=== PATIENT | female | born 1985 | race Caucasian/White ===

== ENCOUNTER 2023-01-19 21:39 | Emergency (ER) | payer OTHER ==
[2023-01-19] MEDS ORDERED: LIDOCAINE PATCH 5% TOP STA (22:33)
[2023-01-19] MEDS ORDERED: KETOROLAC 60 MG/2 ML VIAL IM STA (22:33)
[2023-01-19] MEDS ORDERED: predniSONE 20 MG TABLET PO STA (23:24)
[2023-01-20] MEDS ORDERED: CYCLOBENZAPRINE 10 MG TABLET PO STA
--- NOTE | 2023-01-20 00:02 | ED Physician Documentation ---
PD HPI BACK PAIN - Stated complaint Stated Complaint: RT LEG PX - Chief complaint Chief Complaint: General - History obtained from History obtained from: Patient - Additional information Additional information: Patient is a 37-year-old female with a history of low back pain presenting for evaluation of low back pain as well as right leg pain for the past 3 days. She denies a prior history of similar pains in the leg. She reports it feels like a deep ache and radiates throughout the leg. She has tried ibuprofen and acetaminophen without any significant improvement. He does have a history of re current back pain. 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 She denies any known injury or trauma. She denies a history of PE or DVT. 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 - Present Medications Home Medications: Ambulatory Orders Medication Instructions Recorded Confirmed Cyclobenzaprine [Flexeril] 10 mg PO TID PRN #15 tablet 01/20/23 Lidocaine Patch 5% [Lidoderm Patch] 1 patch TOP DAILY PRN #10 patch 01/20/23 predniSONE [Deltasone] 60 mg PO DAILY 4 Days #12 tablet 01/20/23 - Allergies Allergies/Adverse Reactions: Allergies Allergy/AdvReac Type Severity Reaction Status Date / Time hydrocodone AdvReac Respiratory Verified 01/19/23 21:57 oxycodone AdvReac Respiratory Verified 01/19/23 21:57 Sulfa (Sulfonamide AdvReac Unknown Verified 01/19/23 21:58 Antibiotics) - Social History Does the pt smoke?: No Smoking Status: Never smoker Does the pt drink ETOH?: Yes Does the pt have substance abuse?: No - POLST Patient has POLST: No PD ED PE NORMAL - General General: Alert and oriented X 3, No acute distress, Well developed/nourished - HEENT HEENT: Atraumatic - Neck Neck: Supple, no meningeal sign - Cardiac Cardiac: RRR - Respiratory Respiratory: No respiratory distress, Clear bilaterally - Abdomen Abdomen: Soft, Non tender - Back Back: Other (Mild midline low lumbar tenderness to palpation) - Derm Derm: Warm and dry - Extremities Extremities: No deformity, No tenderness to palpate, Normal ROM s pain, No edema, No calf tenderness / cord, Other (Pedal pulses intact) - Neuro Neuro: No motor deficit, No sensory deficit Results - Vitals Vitals: Vital Signs - 24 hr 01/19/23 01/20/23 21:50 00:14 Temperature 36.5 C 36.6 C Heart Rate 76 77 Respiratory 20 18 Rate Blood Pressure 147/70 H 106/79 O2 Saturation 99 100 Oxygen O2 Source Room air - Labs Labs: Laboratory Tests 01/19/23 22:38 D-Dimer 228.2 PD Medical Decision Making - ED course ED course: Patient presenting for evaluation of right leg pain. Pain appears to be atraumatic but in the setting of low back pain which has been ongoing for past few weeks.On exam she is neurovascularly intact with soft compartments to the extremity. There is no motor or abnormal sensation.No red flag signs or symptoms in regards to her low back pain.I D-dimer was obtained as patient was concerned about enlarged superficial veins. D-dimer is negative but I do not think clinically she has signs of a DVT.I suspect that her symptoms are related to radiculopathy from her low back pain. Discussed options for treatment and patient is agreeable to trial of lidocaine patches, anti-inflammatories, st eroids, And muscle relaxer. She declines any need for pain medication at this time. Patient is ambulatory. She is counseled on need for close follow-up with PCP as well as advised on concerning symptoms to return for. Departure - Departure Disposition: 01 Home, Self Care Clinical Impression: Radicular low back pain Condition: Stable Instructions: Lumbar Radiculopathy Prescriptions: predniSONE [Deltasone] 60 mg PO DAILY 4 Days #12 tablet Cyclobenzaprine [Flexeril] 10 mg PO TID PRN #15 tablet PRN Reason: Spasms Lidocaine Patch 5% [Lidoderm Patch] 1 patch TOP DAILY PRN #10 patch PRN Reason: pain Comments: You were evaluated for pain in your right leg. We checked a marker for signs of a blood clot which is negative. I feel your symptoms are likely related to a pinched nerve from your lower back. I have sent prescriptions to help with your pain to include a course of steroids, lidocaine patches and a muscle relaxer. These prescriptions were sent to [facility] in [place].I would recommend taking it easy over the weekend. I would also recommend close follow-up with your primary care doctor. If you have any worsening symptoms such as trouble controlling your bowel or bladder, new numbness, please consider return to the emergency department. Discharge Date/Time: 01/20/23 00:16
[2023-01-20 00:16] VITALS: BP 106/79
== END 2023-01-20 00:16 | disposition home or self-care (01) ==
LOC: ED 21:39
DX: M54.50 Low back pain, unspecified (principal)
CPT/HCPCS: 36415; 85379; 96372; 99283; A9270; J7512

== ENCOUNTER 2023-05-08 10:30 | Emergency (ER) | payer OTHER ==
[2023-05-08 10:44] VITALS: BP 155/80
--- NOTE | 2023-05-08 11:05 | ED Physician Documentation ---
PD HPI BACK PAIN - Stated complaint Stated Complaint: BACK PX,DISCOMFORT - Chief complaint Chief Complaint: Back Pain - History obtained from History obtained from: Patient - History of Present Illness Timing - onset: Last night Timing - details: Abrupt onset, Still present, Waxing and waning Location: Lower, Right, Left Quality: Pain, Spasm Associated symptoms: No: Fever, Weakness, Numbness, Incontinent of urine Improves with: No: Rest Worsened by: Movement Contributing factors: No: Trauma (she did not have particular injury. She just bent over and light lifting and had pain and spasms in low back. Had back surgery 6n weeks ago without problems. 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 Has had much improved back pain and leg symptoms post surgery. This is first time of worse spasms and pain since surgery. no fevers, redness, rash, focal weakness nor numbness.) Review of Systems Constitutional: denies: Fever, Chills GI: reports: Constipation. 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 - Present Medications Home Medications: Ambulatory Orders Medication Instructions Recorded Confirmed Cyclobenzaprine [Flexeril] 10 mg PO TID PRN #15 tablet 01/20/23 Lidocaine Patch 5% [Lidoderm Patch] 1 patch TOP DAILY PRN #10 patch 01/20/23 predniSONE [Deltasone] 60 mg PO DAILY 4 Days #12 tablet 01/20/23 dexAMETHasone [Decadron] 4 mg PO DAILY #7 tablet 05/08/23 - Allergies Allergies/Adverse Reactions: Allergies Allergy/AdvReac Type Severity Reaction Status Date / Time hydrocodone AdvReac Respiratory Verified 01/19/23 21:57 oxycodone AdvReac Respiratory Verified 01/19/23 21:57 Sulfa (Sulfonamide AdvReac Unknown Verified 01/19/23 21:58 Antibiotics) - Social History Does the pt smoke?: No Smoking Status: Never smoker Does the pt drink ETOH?: Yes Does the pt have substance abuse?: No - POLST Patient has POLST: No PD ED PE NORMAL - Vitals Vital signs reviewed: Yes - General General: Alert and oriented X 3, Well developed/nourished, Other (appears uncomfrtablee due to low back and with stiff/guarding ROM.) - Respiratory Respiratory: No respiratory distress, Clear bilaterally - Abdomen Abdomen: Soft, Non tender - Back Back: No CVA TTP, No spinal TTP (the surgical scar area looks good withut signs of infection at midline area. BOth sides lumbar muscles with some soft tissue tenderness. No deformity. ) - Derm Derm: Normal color, Warm and dry - Neuro Neuro: Alert and oriented X 3, No motor deficit, No sensory deficit, Other ([patellar relfexes are good. ) Results - Vitals Vitals: Vital Signs - 24 hr 05/08/23 10:40 Temperature 36.4 C L Heart Rate 70 Respiratory 15 Rate Blood Pressure 155/80 H O2 Saturation 100 Oxygen O2 Source Room air PD Medical Decision Making - ED course Complexity details: considered differential, d/w patient ED course: much far out for regular post infections. Had been doing well and now spasms and pain in low back but wihtout leg neruo symptoms.S ome raditing pain to right thigh. No red flags and can treat with steroids (which is her main request). Has muscle relaxant at home. Has some oxycodone left from post op. Departure - Departure Disposition: 01 Home, Self Care Clinical Impression: History of back surgery Low back pain Qualifiers: Chronicity: acute Back pain laterality: unspecified Sciatica presence: unspecified whether sciatica present Qualified Code(s): M54.50 - Low back pain, unspecified Condition: Stable Record reviewed to determine appropriate education?: Yes Instructions: ED Low Back Pain Injury Prescriptions: dexAMETHasone [Decadron] 4 mg PO DAILY #7 tablet Comments: Continue with your muscle relaxant, heat and stretching to help reduce spasms. Tylenol every 4-6 hours if needed for pain and I would recommend using it regularly 4 times daily for the next several days to a week. To that add the Dilaudid tablets you have from the postoperative surgery. Add the Decadron steroid as directed. You can do 2 tablets daily for the first day or 2 and then once daily for several more days. Follow-up with your back surgeon if not improving well over the next few days. Return if worse. I sent your prescription to [facility] in [place]. Discharge Date/Time: 05/08/23 11:29
--- OUTSIDE RECORDS SUMMARY | 2023-05-08 11:06 | EXTERNAL MEDICAL SUMMARY RPT | Continuity of Care Document ---
Author Name Unknown Address [address] [place] [address] Phone Organization [facility] Address [address] [place] [address] Phone Care Team Providers Care Television Station Manager Name Role Phone Unavailable Unavailable Unavailable Franco Ray Unavailable Unavailable Allergies and Intolerances date description facility type (no date) Sulfa (Sulfonamide Antibiotics) [facility] (unknown) (no date) acyclovir [facility] (unknown) (no date) codeine [facility] (unknown) (no date) hydrocodone [facility] (unknown) (no date) latex [facility] (unknown) (no date) oxycodone [facility] (unknown) Medications date description facility 2023-03-16 00:00 Ferrous Sulfate [facility] 2023-03-26 00:00 Hydromorphone [facility] Problems date description facility 2023-02-12 00:00 Varicose veins of lower extremi [facility] 2023-02-12 00:00 Numbness of right lower extremi [facility] 2023-02-12 00:00 [facility] 2023-02-12 00:00 Edema of right lower extremity [facility] 2023-02-12 14:31 Asymptomatic varicos e veins of unspecified lower extremity [facility] 2023-02-12 14:31 Anesthesia of [facility] 2023-02-12 14:31 Localized [facility] 2023-02-12 16:08 Asymptomatic varicos e veins of unspecified lower extremity [facility] 2023-02-12 16:08 Anesthesia of [facility] 2023-02-12 16:08 Localized [facility] 2023-02-20 18:36 Anesthesia of [facility] 2023-02-20 18:36 Other symptoms and s igns involving the musculoskeletal syste [facility] 2023-02-20 18:36 [facility] 2023-02-20 19:39 Anesthesia of [facility] 2023-02-20 19:39 Other symptoms and s igns involving the musculoskeletal syste [facility] 2023-02-20 19:39 Localized edema [facility] 2023-02-21 00:00 Spinal stenosis of l umbar region with neurogenic claudication [facility] 2023-03-15 09:58 Encounter for preprocedural lab oratory examination [facility] 2023-03-15 10:06 Encounter for preprocedural lab oratory examination [facility] 2023-03-26 06:39 Other intervertebral disc displacement, lumbar region [facility] 2023-03-26 07:06 Other intervertebral disc displacement, lumbar [facility] 2023-03-26 09:24 Other intervertebral disc displacement, lumbar [facility] 2023-03-26 10:10 Other intervertebral disc displacement, lumbar [facility] 2023-03-26 10:26 Other intervertebral disc displacement, [facility] 2023-04-19 00:00 High risk heterosexual behavior [facility] 2023-04-19 11:03 Adjustment disorder, unspecifie d [facility] 2023-04-19 11:03 High risk heterosexual behavior [facility] Procedures date description facility 2023-03-26 00:00 XR lumbar spine and sacrum, 3 v iews [facility] 2023-03-26 00:00 Laminectomy, Minimally Invasive (Right) [facility] 2023-02-20 00:00 MRI of lumbar spine without con trast [facility] 2023-02-12 00:00 Ultrasound of periph eral veins of right lower extremity [facility] 2023-03-26 00:00 XR fluoro, less than 60 minutes [facility] Results/Labs test date author facility value unit interpretation Result panel 1 (unknown) (no date) (unknown) [facility] (no value) (units unknown) (unknown) Result panel 2 (unknown) (no date) (unknown) [facility] (no value) (units unknown) (unknown) Result panel 3 (unknown) (no date) (unknown) [facility] (no value) (units unknown) (unknown) Result panel 4 (unknown) (no date) (unknown) [facility] (no value) (units unknown) (unknown) Result panel 5 (unknown) (no date) (unknown) [facility] (no value) (units unknown) (unknown) Result panel 6 (unknown) (no date) (unknown) [facility] (no value) (units unknown) (unknown) Result panel 7 (unknown) (no date) (unknown) [facility] (no value) (units unknown) (unknown) Result panel 8 (unknown) (no date) (unknown) [facility] (no value) (units unknown) (unknown) Result panel 9 (unknown) (no date) (unknown) [facility] (no value) (units unknown) (unknown) Result panel 10 (unknown) (no date) (unknown) [facility] (no value) (units unknown) (unknown) Result panel 11 (unknown) (no date) (unknown) [facility] (no value) (units unknown) (unknown) Result panel 12 (unknown) (no date) (unknown) [facility] (no value) (units unknown) (unknown) Result panel 13 (unknown) (no date) (unknown) [facility] (no value) (units unknown) (unknown) Result panel 14 (unknown) (no date) (unknown) [facility] (no value) (units unknown) (unknown) Result panel 15 (unknown) (no date) (unknown) [facility] (no value) (units unknown) (unknown) Result panel 16 (unknown) (no date) (unknown) [facility] (no value) (units unknown) (unknown) Result panel 17 (unknown) (no date) (unknown) [facility] (no value) (units unknown) (unknown) Result panel 18 (unknown) (no date) (unknown) [facility] (no value) (units unknown) (unknown) Result panel 19 (unknown) (no date) (unknown) [facility] (no value) (units unknown) (unknown) Result panel 20 (unknown) (no date) (unknown) [facility] (no value) (units unknown) (unknown) Result panel 21 (unknown) (no date) (unknown) [facility] (no value) (units unknown) (unknown) Result panel 22 (unknown) (no date) (unknown) [facility] (no value) (units unknown) (unknown) Result panel 23 (unknown) (no date) (unknown) [facility] (no value) (units unknown) (unknown) Result panel 24 (unknown) (no date) (unknown) [facility] (no value) (units unknown) (unknown) Result panel 25 (unknown) (no date) (unknown) [facility] (no value) (units unknown) (unknown) Result panel 26 (unknown) (no date) (unknown) [facility] (no value) (units unknown) (unknown) Result panel 27 (unknown) (no date) (unknown) [facility] (no value) (units unknown) (unknown) Result panel 28 (unknown) (no date) (unknown) [facility] (no value) (units unknown) (unknown) Result panel 29 (unknown) (no date) (unknown) [facility] (no value) (units unknown) (unknown) Result panel 30 (unknown) (no date) (unknown) [facility] (no value) (units unknown) (unknown) Result panel 31 (unknown) (no date) (unknown) [facility] (no value) (units unknown) (unknown) Result panel 32 (unknown) (no date) (unknown) [facility] (no value) (units unknown) (unknown) Result panel 33 (unknown) (no date) (unknown) [facility] (no value) (units unknown) (unknown) Result panel 34 (unknown) (no date) (unknown) [facility] (no value) (units unknown) (unknown) Result panel 35 (unknown) (no date) (unknown) [facility] (no value) (units unknown) (unknown) Result panel 36 (unknown) (no date) (unknown) [facility] (no value) (units unknown) (unknown) Result panel 37 (unknown) (no date) (unknown) [facility] (no value) (units unknown) (unknown) Result panel 38 (unknown) (no date) (unknown) [facility] (no value) (units unknown) (unknown) Result panel 39 (unknown) (no date) (unknown) [facility] (no value) (units unknown) (unknown) Result panel 40 (unknown) (no date) (unknown) [facility] (no value) (units unknown) (unknown) Result panel 41 (unknown) (no date) (unknown) [facility] (no value) (units unknown) (unknown) Result panel 42 (unknown) (no date) (unknown) [facility] (no value) (units unknown) (unknown) Result panel 43 (unknown) (no date) (unknown) [facility] (no value) (units unknown) (unknown) Result panel 44 (unknown) (no date) (unknown) [facility] (no value) (units unknown) (unknown) Result panel 45 (unknown) (no date) (unknown) [facility] (no value) (units unknown) (unknown) Result panel 46 (unknown) (no date) (unknown) [facility] (no value) (units unknown) (unknown) Result panel 47 (unknown) (no date) (unknown) [facility] (no value) (units unknown) (unknown) Result panel 48 (unknown) (no date) (unknown) [facility] (no value) (units unknown) (unknown) Result panel 49 (unknown) (no date) (unknown) [facility] (no value) (units unknown) (unknown) Result panel 50 (unknown) (no date) (unknown) [facility] (no value) (units unknown) (unknown) Result panel 51 (unknown) (no date) (unknown) [facility] (no value) (units unknown) (unknown) Result panel 52 (unknown) (no date) (unknown) [facility] (no value) (units unknown) (unknown) Result panel 53 (unknown) (no date) (unknown) [facility] (no value) (units unknown) (unknown) Result panel 54 (unknown) (no date) (unknown) [facility] (no value) (units unknown) (unknown) Result panel 55 (unknown) (no date) (unknown) [facility] (no value) (units unknown) (unknown) Result panel 56 (unknown) (no date) (unknown) [facility] (no value) (units unknown) (unknown) Result panel 57 (unknown) (no date) (unknown) [facility] (no value) (units unknown) (unknown) Result panel 58 (unknown) (no date) (unknown) [facility] (no value) (units unknown) (unknown) Result panel 59 (unknown) (no date) (unknown) [facility] (no value) (units unknown) (unknown) Result panel 60 (unknown) (no date) (unknown) [facility] (no value) (units unknown) (unknown) Result panel 61 (unknown) (no date) (unknown) [facility] (no value) (units unknown) (unknown) Result panel 62 (unknown) (no date) (unknown) [facility] (no value) (units unknown) (unknown) Result panel 63 (unknown) (no date) (unknown) [facility] (no value) (units unknown) (unknown) Result panel 64 (unknown) (no date) (unknown) [facility] (no value) (units unknown) (unknown) Result panel 65 (unknown) (no date) (unknown) [facility] (no value) (units unknown) (unknown) Result panel 66 (unknown) (no date) (unknown) [facility] (no value) (units unknown) (unknown) Result panel 67 (unknown) (no date) (unknown) [facility] (no value) (units unknown) (unknown) Result panel 68 (unknown) (no date) (unknown) [facility] (no value) (units unknown) (unknown) Result panel 69 (unknown) (no date) (unknown) [facility] (no value) (units unknown) (unknown) Result panel 70 (unknown) (no date) (unknown) [facility] (no value) (units unknown) (unknown) Result panel 71 (unknown) (no date) (unknown) [facility] (no value) (units unknown) (unknown) Result panel 72 (unknown) (no date) (unknown) [facility] (no value) (units unknown) (unknown) Result panel 73 (unknown) (no date) (unknown) [facility] (no value) (units unknown) (unknown) Result panel 74 (unknown) (no date) (unknown) [facility] (no value) (units unknown) (unknown) Result panel 75 (unknown) (no date) (unknown) [facility] (no value) (units unknown) (unknown) Result panel 76 (unknown) (no date) (unknown) [facility] (no value) (units unknown) (unknown) Result panel 77 (unknown) (no date) (unknown) [facility] (no value) (units unknown) (unknown) Result panel 78 (unknown) (no date) (unknown) [facility] (no value) (units unknown) (unknown) Result panel 79 (unknown) (no date) (unknown) [facility] (no value) (units unknown) (unknown) Result panel 80 (unknown) (no date) (unknown) [facility] (no value) (units unknown) (unknown) Result panel 81 (unknown) (no date) (unknown) [facility] (no value) (units unknown) (unknown) Result panel 82 (unknown) (no date) (unknown) [facility] (no value) (units unknown) (unknown) Result panel 83 (unknown) (no date) (unknown) [facility] (no value) (units unknown) (unknown) Result panel 84 (unknown) (no date) (unknown) [facility] (no value) (units unknown) (unknown) Result panel 85 (unknown) (no date) (unknown) [facility] (no value) (units unknown) (unknown) Result panel 86 (unknown) (no date) (unknown) [facility] (no value) (units unknown) (unknown) Result panel 87 (unknown) (no date) (unknown) [facility] (no value) (units unknown) (unknown) Result panel 88 (unknown) (no date) (unknown) [facility] (no value) (units unknown) (unknown) Result panel 89 (unknown) (no date) (unknown) [facility] (no value) (units unknown) (unknown) Result panel 90 (unknown) (no date) (unknown) [facility] (no value) (units unknown) (unknown) Result panel 91 (unknown) (no date) (unknown) [facility] (no value) (units unknown) (unknown) Result panel 92 (unknown) (no date) (unknown) [facility] (no value) (units unknown) (unknown) Result panel 93 (unknown) (no date) (unknown) [facility] (no value) (units unknown) (unknown) Result panel 94 (unknown) (no date) (unknown) [facility] (no value) (units unknown) (unknown) Result panel 95 (unknown) (no date) (unknown) [facility] (no value) (units unknown) (unknown) Result panel 96 (unknown) (no date) (unknown) [facility] (no value) (units unknown) (unknown) Result panel 97 (unknown) (no date) (unknown) (unknown) (no value) (units unknown) (unknown) (unknown) (no date) (unknown) (unknown) 02/09/23 (units unknown) (unknown) (unknown) (no date) (unknown) (unknown) [id number] (units unknown) (unknown) (unknown) (no date) (unknown) (unknown) 37-year-old wo man, patient of Dr. Ray, with history of carpal tunnel syndrome (units unknown) (unknown) (unknown) (no date) (unknown) (unknown) Abdomen:[] (units unknown) (unknown) (unknown) (no date) (unknown) (unknown) Abnormal Pap s mear of cervix (-2018) (units unknown) (unknown) (unknown) (no date) (unknown) (unknown) Age/Sex: 37 / F Date of Service: (units unknown) (unknown) (unknown) (no date) (unknown) (unknown) Allergies (units unknown) (unknown) (unknown) (no date) (unknown) (unknown) Alopecia (units unknown) (unknown) (unknown) (no date) (unknown) (unknown) [place] [address] (units unknown) (unknown) (unknown) (no date) (unknown) (unknown) Anesthesia (units unknown) (unknown) (unknown) (no date) (unknown) (unknown) Attending Dr: Terrell Cifuentes D.O. (units unknown) (unknown) (unknown) (no date) (unknown) (unknown) Bilateral hand pain (units unknown) (unknown) (unknown) (no date) (unknown) (unknown) Carpal tunnel syndrome on both sides (units unknown) (unknown) (unknown) (no date) (unknown) (unknown) Cervical:[] (units unknown) (unknown) (unknown) (no date) (unknown) (unknown) Chief Complaint (uni ts unknown) (unknown) (unknown) (no date) (unknown) (unknown) Chief Complain t: Leg pain (units unknown) (unknown) (unknown) (no date) (unknown) (unknown) Conjunctivae: conjunctivae normal (units unknown) (unknown) (unknown) (no date) (unknown) (unknown) Cranial:[] (units unknown) (unknown) (unknown) (no date) (unknown) (unknown) : 7 Acct:[id number] (units unknown) (unknown) (unknown) (no date) (unknown) (unknown) Dept at . (units unknown) (unknown) (unknown) (no date) (unknown) (unknown) Details: (units unknown) (unknown) (unknown) (no date) (unknown) (unknown) Diabetes mellitus (u nits unknown) (unknown) (unknown) (no date) (unknown) (unknown) Difficulty Breathing (units unknown) (unknown) (unknown) (no date) (unknown) (unknown) Documented By: Terrell Cifuentes D.O. 02/12/23 0857 (units unknown) (unknown) (unknown) (no date) (unknown) (unknown) Draft (units unknown) (unknown) (unknown) (no date) (unknown) (unknown) Drug use (units unknown) (unknown) (unknown) (no date) (unknown) (unknown) Exam Narrative (unit s unknown) (unknown) (unknown) (no date) (unknown) (unknown) Exam Narrative: (uni ts unknown) (unknown) (unknown) (no date) (unknown) (unknown) Exam (units unknown) (unknown) (unknown) (no date) (unknown) (unknown) Eyelids: eyeli ds normal (units unknown) (unknown) (unknown) (no date) (unknown) (unknown) Eyes (units unknown) (unknown) (unknown) (no date) (unknown) (unknown) Family History (units unknown) (unknown) (unknown) (no date) (unknown) (unknown) Family Practic e Office Visit (units unknown) (unknown) (unknown) (no date) (unknown) (unknown) Father Diabete s mellitus (units unknown) (unknown) (unknown) (no date) (unknown) (unknown) Fatigue (units unknown) (unknown) (unknown) (no date) (unknown) (unknown) [facility] (units unknown) (unknown) (unknown) (no date) (unknown) (unknown) General: appea pravin normal, both eyes and all related structures (units unknown) (unknown) (unknown) (no date) (unknown) (unknown) General: cooperative, healthy appearing and comfortable (units unknown) (unknown) (unknown) (no date) (unknown) (unknown) Grandfather Cancer ( units unknown) (unknown) (unknown) (no date) (unknown) (unknown) Grandfather Cancer (units unknown) (unknown) (unknown) (no date) (unknown) (unknown) Grandmother Cancer ( units unknown) (unknown) (unknown) (no date) (unknown) (unknown) Grandmother Stroke ( units unknown) (unknown) (unknown) (no date) (unknown) (unknown) HENMT (units unknown) (unknown) (unknown) (no date) (unknown) (unknown) HPI (units unknown) (unknown) (unknown) (no date) (unknown) (unknown) Head: normal t o inspection (units unknown) (unknown) (unknown) (no date) (unknown) (unknown) History of appendectomy (units unknown) (unknown) (unknown) (no date) (unknown) (unknown) History of jaydon arean section (units unknown) (unknown) (unknown) (no date) (unknown) (unknown) History of hea rt disease (units unknown) (unknown) (unknown) (no date) (unknown) (unknown) Hyperlipidemia (unit s unknown) (unknown) (unknown) (no date) (unknown) (unknown) Hypertension (units unknown) (unknown) (unknown) (no date) (unknown) (unknown) Intake (units unknown) (unknown) (unknown) (no date) (unknown) (unknown) Loc: [facility] (units unknown) (unknown) (unknown) (no date) (unknown) (unknown) Lower extremities:[] (units unknown) (unknown) (unknown) (no date) (unknown) (unknown) Lumbar:[] (units unknown) (unknown) (unknown) (no date) (unknown) (unknown) Medical Histor y (units unknown) (unknown) (unknown) (no date) (unknown) (unknown) Musculoskeletal: (un its unknown) (unknown) (unknown) (no date) (unknown) (unknown) Neck: normal v isual inspection (units unknown) (unknown) (unknown) (no date) (unknown) (unknown) Neuro: alert a nd oriented x3, normal cognition, speech normal, normal gait (units unknown) (unknown) (unknown) (no date) (unknown) (unknown) Nose: external nose normal (units unknown) (unknown) (unknown) (no date) (unknown) (unknown) Obesity (units unknown) (unknown) (unknown) (no date) (unknown) (unknown) Orientation: a lert and oriented x3 (units unknown) (unknown) (unknown) (no date) (unknown) (unknown) Osteopathic exam: (u nits unknown) (unknown) (unknown) (no date) (unknown) (unknown) PFSH (units unknown) (unknown) (unknown) (no date) (unknown) (unknown) Patient: Zoya James MR#: [id number] (units unknown) (unknown) (unknown) (no date) (unknown) (unknown) Pelvis:[] (units unknown) (unknown) (unknown) (no date) (unknown) (unknown) Psych: grossly normal and well kempt, mental status grossly normal, speech and (units unknown) (unknown) (unknown) (no date) (unknown) (unknown) Reason For Visit (un its unknown) (unknown) (unknown) (no date) (unknown) (unknown) Resp: normal respiratory effort and able to speak in complete sentences (units unknown) (unknown) (unknown) (no date) (unknown) (unknown) Ribcage:[] (units unknown) (unknown) (unknown) (no date) (unknown) (unknown) Sacrum:[] (units unknown) (unknown) (unknown) (no date) (unknown) (unknown) Sclera: sclera e normal (units unknown) (unknown) (unknown) (no date) (unknown) (unknown) Signed By: (units unknown) (unknown) (unknown) (no date) (unknown) (unknown) Skin: no rashe s or lesions noted (units unknown) (unknown) (unknown) (no date) (unknown) (unknown) Smoking Status : Never smoker (units unknown) (unknown) (unknown) (no date) (unknown) (unknown) Sulfa (Sulfona mide Antibiotics) Adverse Reaction (Verified 01/31/23 15:07) (units unknown) (unknown) (unknown) (no date) (unknown) (unknown) Surgical Histo ry (units unknown) (unknown) (unknown) (no date) (unknown) (unknown) This note may have been all or partially generated using voice recognition (units unknown) (unknown) (unknown) (no date) (unknown) (unknown) Thoracic:[] (units unknown) (unknown) (unknown) (no date) (unknown) (unknown) Tobacco + Subs tance Use (units unknown) (unknown) (unknown) (no date) (unknown) (unknown) Tobacco Status (unit s unknown) (unknown) (unknown) (no date) (unknown) (unknown) Upper extremities:[] (units unknown) (unknown) (unknown) (no date) (unknown) (unknown) Visit Reasons: Right leg pain *Horras* (units unknown) (unknown) (unknown) (no date) (unknown) (unknown) acyclovir Nilesh rgy (Verified 01/31/23 15:07) (units unknown) (unknown) (unknown) (no date) (unknown) (unknown) and obesity presents with complaint of (units unknown) (unknown) (unknown) (no date) (unknown) (unknown) codeine Allerg y (Verified 01/31/23 15:07) (units unknown) (unknown) (unknown) (no date) (unknown) (unknown) difficulty breathing (units unknown) (unknown) (unknown) (no date) (unknown) (unknown) have occurred. If there are any questions, please contact the Medical Records (units unknown) (unknown) (unknown) (no date) (unknown) (unknown) latex Allergy (Verified 01/31/23 15:07) (units unknown) (unknown) (unknown) (no date) (unknown) (unknown) may occur. Occasional wrong-word or 'sound-alike' substitutions may have (units unknown) (unknown) (unknown) (no date) (unknown) (unknown) movement marge l, congruent mood (units unknown) (unknown) (unknown) (no date) (unknown) (unknown) occurred due t o the inherent limitations of voice recognition software. Please (units unknown) (unknown) (unknown) (no date) (unknown) (unknown) rash (units unknown) (unknown) (unknown) (no date) (unknown) (unknown) read the note carefully and recognize, using context, where these substitutions (units unknown) (unknown) (unknown) (no date) (unknown) (unknown) software. Alth ough every effort is made to edit content, pluck separator errors (units unknown) (unknown) Result panel 98 (unknown) (no date) (unknown) (unknown) (no value) (units unknown) (unknown) (unknown) (no date) (unknown) (unknown) 02/12/23 (units unknown) (unknown) (unknown) (no date) (unknown) (unknown) [id number] (units unknown) (unknown) (unknown) (no date) (unknown) (unknown) 37-year-old wo man, patient of Dr. Ray, with history of carpal tunnel syndrome (units unknown) (unknown) (unknown) (no date) (unknown) (unknown) Abdomen:[] (units unknown) (unknown) (unknown) (no date) (unknown) (unknown) Abnormal Pap s mear of cervix (-2018) (units unknown) (unknown) (unknown) (no date) (unknown) (unknown) Age/Sex: 37 / F Date of Service: (units unknown) (unknown) (unknown) (no date) (unknown) (unknown) Allergies (units unknown) (unknown) (unknown) (no date) (unknown) (unknown) Alopecia (units unknown) (unknown) (unknown) (no date) (unknown) (unknown) [place] [address] (units unknown) (unknown) (unknown) (no date) (unknown) (unknown) Anesthesia (units unknown) (unknown) (unknown) (no date) (unknown) (unknown) Attending Dr: Terrell Cifuentes D.O. (units unknown) (unknown) (unknown) (no date) (unknown) (unknown) Bilateral hand pain (units unknown) (unknown) (unknown) (no date) (unknown) (unknown) Carpal tunnel syndrome on both sides (units unknown) (unknown) (unknown) (no date) (unknown) (unknown) Cervical:[] (units unknown) (unknown) (unknown) (no date) (unknown) (unknown) Chief Complaint (uni ts unknown) (unknown) (unknown) (no date) (unknown) (unknown) Chief Complain t: Leg pain (units unknown) (unknown) (unknown) (no date) (unknown) (unknown) Conjunctivae: conjunctivae normal (units unknown) (unknown) (unknown) (no date) (unknown) (unknown) Cranial:[] (units unknown) (unknown) (unknown) (no date) (unknown) (unknown) : 7 Acct:[id number] (units unknown) (unknown) (unknown) (no date) (unknown) (unknown) Dept at . (units unknown) (unknown) (unknown) (no date) (unknown) (unknown) Details: (units unknown) (unknown) (unknown) (no date) (unknown) (unknown) Diabetes mellitus (u nits unknown) (unknown) (unknown) (no date) (unknown) (unknown) Difficulty Breathing (units unknown) (unknown) (unknown) (no date) (unknown) (unknown) Documented By: Terrell Cifuentes D.O. 02/12/23 0857 (units unknown) (unknown) (unknown) (no date) (unknown) (unknown) Draft (units unknown) (unknown) (unknown) (no date) (unknown) (unknown) Drug use (units unknown) (unknown) (unknown) (no date) (unknown) (unknown) Exam Narrative (unit s unknown) (unknown) (unknown) (no date) (unknown) (unknown) Exam Narrative: (uni ts unknown) (unknown) (unknown) (no date) (unknown) (unknown) Exam (units unknown) (unknown) (unknown) (no date) (unknown) (unknown) Eyelids: eyeli ds normal (units unknown) (unknown) (unknown) (no date) (unknown) (unknown) Eyes (units unknown) (unknown) (unknown) (no date) (unknown) (unknown) Family History (units unknown) (unknown) (unknown) (no date) (unknown) (unknown) Family Practic e Office Visit (units unknown) (unknown) (unknown) (no date) (unknown) (unknown) Father Diabete s mellitus (units unknown) (unknown) (unknown) (no date) (unknown) (unknown) Fatigue (units unknown) (unknown) (unknown) (no date) (unknown) (unknown) [facility] (units unknown) (unknown) (unknown) (no date) (unknown) (unknown) General: appea pravin normal, both eyes and all related structures (units unknown) (unknown) (unknown) (no date) (unknown) (unknown) General: cooperative, healthy appearing and comfortable (units unknown) (unknown) (unknown) (no date) (unknown) (unknown) Grandfather Cancer ( units unknown) (unknown) (unknown) (no date) (unknown) (unknown) Grandfather Cancer (units unknown) (unknown) (unknown) (no date) (unknown) (unknown) Grandmother Cancer ( units unknown) (unknown) (unknown) (no date) (unknown) (unknown) Grandmother Stroke ( units unknown) (unknown) (unknown) (no date) (unknown) (unknown) HENMT (units unknown) (unknown) (unknown) (no date) (unknown) (unknown) HPI (units unknown) (unknown) (unknown) (no date) (unknown) (unknown) Head: normal t o inspection (units unknown) (unknown) (unknown) (no date) (unknown) (unknown) History of appendectomy (units unknown) (unknown) (unknown) (no date) (unknown) (unknown) History of jaydon arean section (units unknown) (unknown) (unknown) (no date) (unknown) (unknown) History of hea rt disease (units unknown) (unknown) (unknown) (no date) (unknown) (unknown) Hyperlipidemia (unit s unknown) (unknown) (unknown) (no date) (unknown) (unknown) Hypertension (units unknown) (unknown) (unknown) (no date) (unknown) (unknown) Intake (units unknown) (unknown) (unknown) (no date) (unknown) (unknown) Loc: [facility] (units unknown) (unknown) (unknown) (no date) (unknown) (unknown) Lower extremities:[] (units unknown) (unknown) (unknown) (no date) (unknown) (unknown) Lumbar:[] (units unknown) (unknown) (unknown) (no date) (unknown) (unknown) Medical Histor y (units unknown) (unknown) (unknown) (no date) (unknown) (unknown) Musculoskeletal: (un its unknown) (unknown) (unknown) (no date) (unknown) (unknown) Neck: normal v isual inspection (units unknown) (unknown) (unknown) (no date) (unknown) (unknown) Neuro: alert a nd oriented x3, normal cognition, speech normal, normal gait (units unknown) (unknown) (unknown) (no date) (unknown) (unknown) Nose: external nose normal (units unknown) (unknown) (unknown) (no date) (unknown) (unknown) Obesity (units unknown) (unknown) (unknown) (no date) (unknown) (unknown) Orientation: a lert and oriented x3 (units unknown) (unknown) (unknown) (no date) (unknown) (unknown) Osteopathic exam: (u nits unknown) (unknown) (unknown) (no date) (unknown) (unknown) PFSH (units unknown) (unknown) (unknown) (no date) (unknown) (unknown) Patient: Zoya James MR#: [id number] (units unknown) (unknown) (unknown) (no date) (unknown) (unknown) Pelvis:[] (units unknown) (unknown) (unknown) (no date) (unknown) (unknown) Psych: grossly normal and well kempt, mental status grossly normal, speech and (units unknown) (unknown) (unknown) (no date) (unknown) (unknown) Reason For Visit (un its unknown) (unknown) (unknown) (no date) (unknown) (unknown) Resp: normal respiratory effort and able to speak in complete sentences (units unknown) (unknown) (unknown) (no date) (unknown) (unknown) Ribcage:[] (units unknown) (unknown) (unknown) (no date) (unknown) (unknown) Sacrum:[] (units unknown) (unknown) (unknown) (no date) (unknown) (unknown) Sclera: sclera e normal (units unknown) (unknown) (unknown) (no date) (unknown) (unknown) Signed By: (units unknown) (unknown) (unknown) (no date) (unknown) (unknown) Skin: no rashe s or lesions noted (units unknown) (unknown) (unknown) (no date) (unknown) (unknown) Smoking Status : Never smoker (units unknown) (unknown) (unknown) (no date) (unknown) (unknown) Sulfa (Sulfona mide Antibiotics) Adverse Reaction (Verified 01/31/23 15:07) (units unknown) (unknown) (unknown) (no date) (unknown) (unknown) Surgical Histo ry (units unknown) (unknown) (unknown) (no date) (unknown) (unknown) This note may have been all or partially generated using voice recognition (units unknown) (unknown) (unknown) (no date) (unknown) (unknown) Thoracic:[] (units unknown) (unknown) (unknown) (no date) (unknown) (unknown) Tobacco + Subs tance Use (units unknown) (unknown) (unknown) (no date) (unknown) (unknown) Tobacco Status (unit s unknown) (unknown) (unknown) (no date) (unknown) (unknown) Upper extremities:[] (units unknown) (unknown) (unknown) (no date) (unknown) (unknown) Visit Reasons: Right leg pain *Horras* (units unknown) (unknown) (unknown) (no date) (unknown) (unknown) acyclovir Nilesh rgy (Verified 01/31/23 15:07) (units unknown) (unknown) (unknown) (no date) (unknown) (unknown) and obesity presents with complaint of (units unknown) (unknown) (unknown) (no date) (unknown) (unknown) codeine Allerg y (Verified 01/31/23 15:07) (units unknown) (unknown) (unknown) (no date) (unknown) (unknown) difficulty breathing (units unknown) (unknown) (unknown) (no date) (unknown) (unknown) have occurred. If there are any questions, please contact the Medical Records (units unknown) (unknown) (unknown) (no date) (unknown) (unknown) latex Allergy (Verified 01/31/23 15:07) (units unknown) (unknown) (unknown) (no date) (unknown) (unknown) may occur. Occasional wrong-word or 'sound-alike' substitutions may have (units unknown) (unknown) (unknown) (no date) (unknown) (unknown) movement marge l, congruent mood (units unknown) (unknown) (unknown) (no date) (unknown) (unknown) occurred due t o the inherent limitations of voice recognition software. Please (units unknown) (unknown) (unknown) (no date) (unknown) (unknown) rash (units unknown) (unknown) (unknown) (no date) (unknown) (unknown) read the note carefully and recognize, using context, where these substitutions (units unknown) (unknown) (unknown) (no date) (unknown) (unknown) software. Alth ough every effort is made to edit content, pluck separator errors (units unknown) (unknown) Result panel 99 (unknown) (no date) (unknown) (unknown) (no value) (units unknown) (unknown) (unknown) (no date) (unknown) (unknown) 02/12/23 (units unknown) (unknown) (unknown) (no date) (unknown) (unknown) 02/12/23] (units unknown) (unknown) (unknown) (no date) (unknown) (unknown) 14:02 (units unknown) (unknown) (unknown) (no date) (unknown) (unknown) [id number] (units unknown) (unknown) (unknown) (no date) (unknown) (unknown) 37 yo female presents for persistent right leg pain. (units unknown) (unknown) (unknown) (no date) (unknown) (unknown) 37-year-old wo man, patient of Dr. Ray, with history of carpal tunnel syndrome (units unknown) (unknown) (unknown) (no date) (unknown) (unknown) Abdomen:[] (units unknown) (unknown) (unknown) (no date) (unknown) (unknown) Abnormal Pap s mear of cervix () (units unknown) (unknown) (unknown) (no date) (unknown) (unknown) Age/Sex: 37 / F Date of Service: (units unknown) (unknown) (unknown) (no date) (unknown) (unknown) Allergies (units unknown) (unknown) (unknown) (no date) (unknown) (unknown) Alopecia (units unknown) (unknown) (unknown) (no date) (unknown) (unknown) [place] [address] (units unknown) (unknown) (unknown) (no date) (unknown) (unknown) Anesthesia (units unknown) (unknown) (unknown) (no date) (unknown) (unknown) Attending Dr: Terrell Cifuentes D.O. (units unknown) (unknown) (unknown) (no date) (unknown) (unknown) BMI 45.5 (units unknown) (unknown) (unknown) (no date) (unknown) (unknown) BP 144/82 H (units unknown) (unknown) (unknown) (no date) (unknown) (unknown) Bilateral hand pain (units unknown) (unknown) (unknown) (no date) (unknown) (unknown) Blood Pressure Location Lt brachial (units unknown) (unknown) (unknown) (no date) (unknown) (unknown) Carpal tunnel syndrome on both sides (units unknown) (unknown) (unknown) (no date) (unknown) (unknown) Cervical:[] (units unknown) (unknown) (unknown) (no date) (unknown) (unknown) Chief Complaint (uni ts unknown) (unknown) (unknown) (no date) (unknown) (unknown) Chief Complain t: Leg pain (units unknown) (unknown) (unknown) (no date) (unknown) (unknown) Confirmed 02/12/23] (units unknown) (unknown) (unknown) (no date) (unknown) (unknown) Conjunctivae: conjunctivae normal (units unknown) (unknown) (unknown) (no date) (unknown) (unknown) Cranial:[] (units unknown) (unknown) (unknown) (no date) (unknown) (unknown) : 7 Acct:[id number] (units unknown) (unknown) (unknown) (no date) (unknown) (unknown) Dept at . (units unknown) (unknown) (unknown) (no date) (unknown) (unknown) Details: (units unknown) (unknown) (unknown) (no date) (unknown) (unknown) Diabetes mellitus (u nits unknown) (unknown) (unknown) (no date) (unknown) (unknown) Difficulty Breathing (units unknown) (unknown) (unknown) (no date) (unknown) (unknown) Documented By: Terrell Cifuentes D.O. 02/12/23 0857 (units unknown) (unknown) (unknown) (no date) (unknown) (unknown) Draft (units unknown) (unknown) (unknown) (no date) (unknown) (unknown) Drug use (units unknown) (unknown) (unknown) (no date) (unknown) (unknown) Exam Narrative (unit s unknown) (unknown) (unknown) (no date) (unknown) (unknown) Exam Narrative: (uni ts unknown) (unknown) (unknown) (no date) (unknown) (unknown) Exam (units unknown) (unknown) (unknown) (no date) (unknown) (unknown) Eyelids: eyeli ds normal (units unknown) (unknown) (unknown) (no date) (unknown) (unknown) Eyes (units unknown) (unknown) (unknown) (no date) (unknown) (unknown) Family History (units unknown) (unknown) (unknown) (no date) (unknown) (unknown) Family Practic e Office Visit (units unknown) (unknown) (unknown) (no date) (unknown) (unknown) Father Diabete s mellitus (units unknown) (unknown) (unknown) (no date) (unknown) (unknown) Fatigue (units unknown) (unknown) (unknown) (no date) (unknown) (unknown) [facility] (units unknown) (unknown) (unknown) (no date) (unknown) (unknown) General: appea pravin normal, both eyes and all related structures (units unknown) (unknown) (unknown) (no date) (unknown) (unknown) General: cooperative, healthy appearing and comfortable (units unknown) (unknown) (unknown) (no date) (unknown) (unknown) Grandfather Cancer ( units unknown) (unknown) (unknown) (no date) (unknown) (unknown) Grandfather Cancer (units unknown) (unknown) (unknown) (no date) (unknown) (unknown) Grandmother Cancer ( units unknown) (unknown) (unknown) (no date) (unknown) (unknown) Grandmother Stroke ( units unknown) (unknown) (unknown) (no date) (unknown) (unknown) HENMT (units unknown) (unknown) (unknown) (no date) (unknown) (unknown) HPI (units unknown) (unknown) (unknown) (no date) (unknown) (unknown) Head: normal t o inspection (units unknown) (unknown) (unknown) (no date) (unknown) (unknown) Height 5 ft 5 in (un its unknown) (unknown) (unknown) (no date) (unknown) (unknown) History of appendectomy (units unknown) (unknown) (unknown) (no date) (unknown) (unknown) History of jaydon arean section (units unknown) (unknown) (unknown) (no date) (unknown) (unknown) History of hea rt disease (units unknown) (unknown) (unknown) (no date) (unknown) (unknown) Hyperlipidemia (unit s unknown) (unknown) (unknown) (no date) (unknown) (unknown) Hypertension (units unknown) (unknown) (unknown) (no date) (unknown) (unknown) Intake Note: (units unknown) (unknown) (unknown) (no date) (unknown) (unknown) Intake perform ed by: Timmy Oquendo (units unknown) (unknown) (unknown) (no date) (unknown) (unknown) Intake (units unknown) (unknown) (unknown) (no date) (unknown) (unknown) Intake- Leo al Staff (units unknown) (unknown) (unknown) (no date) (unknown) (unknown) Loc: [facility] (units unknown) (unknown) (unknown) (no date) (unknown) (unknown) Lower extremities:[] (units unknown) (unknown) (unknown) (no date) (unknown) (unknown) Lumbar:[] (units unknown) (unknown) (unknown) (no date) (unknown) (unknown) MULTIVITAMIN (Multivitamin -) ##0 03/22/10 [History Confirmed (units unknown) (unknown) (unknown) (no date) (unknown) (unknown) Medical Histor y (units unknown) (unknown) (unknown) (no date) (unknown) (unknown) Medications (units unknown) (unknown) (unknown) (no date) (unknown) (unknown) Musculoskeletal: (un its unknown) (unknown) (unknown) (no date) (unknown) (unknown) Neck: normal v isual inspection (units unknown) (unknown) (unknown) (no date) (unknown) (unknown) Neuro: alert a nd oriented x3, normal cognition, speech normal, normal gait (units unknown) (unknown) (unknown) (no date) (unknown) (unknown) Nose: external nose normal (units unknown) (unknown) (unknown) (no date) (unknown) (unknown) Obesity (units unknown) (unknown) (unknown) (no date) (unknown) (unknown) Orientation: a lert and oriented x3 (units unknown) (unknown) (unknown) (no date) (unknown) (unknown) Osteopathic exam: (u nits unknown) (unknown) (unknown) (no date) (unknown) (unknown) Oxygen Deliver y Method room air (units unknown) (unknown) (unknown) (no date) (unknown) (unknown) PFSH (units unknown) (unknown) (unknown) (no date) (unknown) (unknown) Patient: Zoya James MR#: [id number] (units unknown) (unknown) (unknown) (no date) (unknown) (unknown) Pelvis:[] (units unknown) (unknown) (unknown) (no date) (unknown) (unknown) Position Sitting (un its unknown) (unknown) (unknown) (no date) (unknown) (unknown) Psych: grossly normal and well kempt, mental status grossly normal, speech and (units unknown) (unknown) (unknown) (no date) (unknown) (unknown) Pulse 95 H (units unknown) (unknown) (unknown) (no date) (unknown) (unknown) Pulse Oximetry (%) 98 (units unknown) (unknown) (unknown) (no date) (unknown) (unknown) Pulse Source Monitor (units unknown) (unknown) (unknown) (no date) (unknown) (unknown) Reason For Visit (un its unknown) (unknown) (unknown) (no date) (unknown) (unknown) Resp: normal respiratory effort and able to speak in complete sentences (units unknown) (unknown) (unknown) (no date) (unknown) (unknown) Ribcage:[] (units unknown) (unknown) (unknown) (no date) (unknown) (unknown) Sacrum:[] (units unknown) (unknown) (unknown) (no date) (unknown) (unknown) Sclera: sclera e normal (units unknown) (unknown) (unknown) (no date) (unknown) (unknown) Signed By: (units unknown) (unknown) (unknown) (no date) (unknown) (unknown) Skin: no rashe s or lesions noted (units unknown) (unknown) (unknown) (no date) (unknown) (unknown) Smoking Status : Never smoker (units unknown) (unknown) (unknown) (no date) (unknown) (unknown) Sulfa (Sulfona mide Antibiotics) Adverse Reaction (Verified 02/12/23 14:02) (units unknown) (unknown) (unknown) (no date) (unknown) (unknown) Surgical Histo ry (units unknown) (unknown) (unknown) (no date) (unknown) (unknown) Temp 97.6 F (units unknown) (unknown) (unknown) (no date) (unknown) (unknown) Temp Source Temporal Artery Scan (units unknown) (unknown) (unknown) (no date) (unknown) (unknown) This note may have been all or partially generated using voice recognition (units unknown) (unknown) (unknown) (no date) (unknown) (unknown) Thoracic:[] (units unknown) (unknown) (unknown) (no date) (unknown) (unknown) Tobacco + Subs tance Use (units unknown) (unknown) (unknown) (no date) (unknown) (unknown) Tobacco Status (unit s unknown) (unknown) (unknown) (no date) (unknown) (unknown) Upper extremities:[] (units unknown) (unknown) (unknown) (no date) (unknown) (unknown) Visit Reasons: Right leg pain *Horras* (units unknown) (unknown) (unknown) (no date) (unknown) (unknown) Vitals (units unknown) (unknown) (unknown) (no date) (unknown) (unknown) Weight 273 lb 6 oz ( units unknown) (unknown) (unknown) (no date) (unknown) (unknown) [History Confi rmed 02/12/23] (units unknown) (unknown) (unknown) (no date) (unknown) (unknown) acetaminophen 500 mg tablet (Tylenol Extra Strength) 500 mg PO Q6H PRN 01/31/23 (units unknown) (unknown) (unknown) (no date) (unknown) (unknown) acyclovir Nilesh rgy (Verified 02/12/23 14:02) (units unknown) (unknown) (unknown) (no date) (unknown) (unknown) and obesity presents with complaint of (units unknown) (unknown) (unknown) (no date) (unknown) (unknown) codeine Allerg y (Verified 02/12/23 14:02) (units unknown) (unknown) (unknown) (no date) (unknown) (unknown) cyclobenzaprin e 10 mg tablet 10 mg PO BID PRN muscle spasm #30 tabs 02/06/23 [Rx (units unknown) (unknown) (unknown) (no date) (unknown) (unknown) difficulty breathing (units unknown) (unknown) (unknown) (no date) (unknown) (unknown) have occurred. If there are any questions, please contact the Medical Records (units unknown) (unknown) (unknown) (no date) (unknown) (unknown) ibuprofen 200 mg tablet 600 mg PO BID PRN pain #60 tabs 02/06/23 [Rx Confirmed (units unknown) (unknown) (unknown) (no date) (unknown) (unknown) latex Allergy (Verified 02/12/23 14:02) (units unknown) (unknown) (unknown) (no date) (unknown) (unknown) may occur. Occasional wrong-word or 'sound-alike' substitutions may have (units unknown) (unknown) (unknown) (no date) (unknown) (unknown) movement marge l, congruent mood (units unknown) (unknown) (unknown) (no date) (unknown) (unknown) occurred due t o the inherent limitations of voice recognition software. Please (units unknown) (unknown) (unknown) (no date) (unknown) (unknown) rash (units unknown) (unknown) (unknown) (no date) (unknown) (unknown) read the note carefully and recognize, using context, where these substitutions (units unknown) (unknown) (unknown) (no date) (unknown) (unknown) software. Alth ough every effort is made to edit content, pluck separator errors (units unknown) (unknown) Result panel 100 (unknown) (no date) (unknown) (unknown) (no value) (units unknown) (unknown) (unknown) (no date) (unknown) (unknown) 02/12/23 (units unknown) (unknown) (unknown) (no date) (unknown) (unknown) 02/12/23] (units unknown) (unknown) (unknown) (no date) (unknown) (unknown) 14:02 (units unknown) (unknown) (unknown) (no date) (unknown) (unknown) [id number] (units unknown) (unknown) (unknown) (no date) (unknown) (unknown) 37 yo female presents for persistent right leg pain. (units unknown) (unknown) (unknown) (no date) (unknown) (unknown) 37-year-old wo man, patient of Dr. Ray, with history of carpal tunnel syndrome (units unknown) (unknown) (unknown) (no date) (unknown) (unknown) Abdomen:[] (units unknown) (unknown) (unknown) (no date) (unknown) (unknown) Abnormal Pap s mear of cervix (-2018) (units unknown) (unknown) (unknown) (no date) (unknown) (unknown) Age/Sex: 37 / F Date of Service: (units unknown) (unknown) (unknown) (no date) (unknown) (unknown) Allergies (units unknown) (unknown) (unknown) (no date) (unknown) (unknown) Alopecia (units unknown) (unknown) (unknown) (no date) (unknown) (unknown) [place] [address] (units unknown) (unknown) (unknown) (no date) (unknown) (unknown) Anesthesia (units unknown) (unknown) (unknown) (no date) (unknown) (unknown) Attending Dr: Terrell Cifuentes D.O. (units unknown) (unknown) (unknown) (no date) (unknown) (unknown) BMI 45.5 (units unknown) (unknown) (unknown) (no date) (unknown) (unknown) BP 144/82 H (units unknown) (unknown) (unknown) (no date) (unknown) (unknown) Bilateral hand pain (units unknown) (unknown) (unknown) (no date) (unknown) (unknown) Blood Pressure Location Lt brachial (units unknown) (unknown) (unknown) (no date) (unknown) (unknown) Carpal tunnel syndrome on both sides (units unknown) (unknown) (unknown) (no date) (unknown) (unknown) Cervical:[] (units unknown) (unknown) (unknown) (no date) (unknown) (unknown) Chief Complaint (uni ts unknown) (unknown) (unknown) (no date) (unknown) (unknown) Chief Complain t: Leg pain (units unknown) (unknown) (unknown) (no date) (unknown) (unknown) Confirmed 02/12/23] (units unknown) (unknown) (unknown) (no date) (unknown) (unknown) Conjunctivae: conjunctivae normal (units unknown) (unknown) (unknown) (no date) (unknown) (unknown) Cranial:[] (units unknown) (unknown) (unknown) (no date) (unknown) (unknown) : 7 Acct:[id number] (units unknown) (unknown) (unknown) (no date) (unknown) (unknown) Dept at . (units unknown) (unknown) (unknown) (no date) (unknown) (unknown) Details: (units unknown) (unknown) (unknown) (no date) (unknown) (unknown) Diabetes mellitus (u nits unknown) (unknown) (unknown) (no date) (unknown) (unknown) Difficulty Breathing (units unknown) (unknown) (unknown) (no date) (unknown) (unknown) Documented By: Terrell Cifuentes D.O. 02/12/23 0857 (units unknown) (unknown) (unknown) (no date) (unknown) (unknown) Draft (units unknown) (unknown) (unknown) (no date) (unknown) (unknown) Drug use (units unknown) (unknown) (unknown) (no date) (unknown) (unknown) Exam Narrative (unit s unknown) (unknown) (unknown) (no date) (unknown) (unknown) Exam Narrative: (uni ts unknown) (unknown) (unknown) (no date) (unknown) (unknown) Exam (units unknown) (unknown) (unknown) (no date) (unknown) (unknown) Eyelids: eyeli ds normal (units unknown) (unknown) (unknown) (no date) (unknown) (unknown) Eyes (units unknown) (unknown) (unknown) (no date) (unknown) (unknown) Family History (units unknown) (unknown) (unknown) (no date) (unknown) (unknown) Family Practic e Office Visit (units unknown) (unknown) (unknown) (no date) (unknown) (unknown) Father Diabete s mellitus (units unknown) (unknown) (unknown) (no date) (unknown) (unknown) Fatigue (units unknown) (unknown) (unknown) (no date) (unknown) (unknown) [facility] (units unknown) (unknown) (unknown) (no date) (unknown) (unknown) General: appea pravin normal, both eyes and all related structures (units unknown) (unknown) (unknown) (no date) (unknown) (unknown) General: cooperative, healthy appearing and comfortable (units unknown) (unknown) (unknown) (no date) (unknown) (unknown) Grandfather Cancer ( units unknown) (unknown) (unknown) (no date) (unknown) (unknown) Grandfather Cancer (units unknown) (unknown) (unknown) (no date) (unknown) (unknown) Grandmother Cancer ( units unknown) (unknown) (unknown) (no date) (unknown) (unknown) Grandmother Stroke ( units unknown) (unknown) (unknown) (no date) (unknown) (unknown) HENMT (units unknown) (unknown) (unknown) (no date) (unknown) (unknown) HPI (units unknown) (unknown) (unknown) (no date) (unknown) (unknown) Head: normal t o inspection (units unknown) (unknown) (unknown) (no date) (unknown) (unknown) Height 5 ft 5 in (un its unknown) (unknown) (unknown) (no date) (unknown) (unknown) History of appendectomy (units unknown) (unknown) (unknown) (no date) (unknown) (unknown) History of jaydon arean section (units unknown) (unknown) (unknown) (no date) (unknown) (unknown) History of hea rt disease (units unknown) (unknown) (unknown) (no date) (unknown) (unknown) Hyperlipidemia (unit s unknown) (unknown) (unknown) (no date) (unknown) (unknown) Hypertension (units unknown) (unknown) (unknown) (no date) (unknown) (unknown) Intake Note: (units unknown) (unknown) (unknown) (no date) (unknown) (unknown) Intake perform ed by: Timmy Oquendo (units unknown) (unknown) (unknown) (no date) (unknown) (unknown) Intake (units unknown) (unknown) (unknown) (no date) (unknown) (unknown) Intake- Leo al Staff (units unknown) (unknown) (unknown) (no date) (unknown) (unknown) Loc: [facility] (units unknown) (unknown) (unknown) (no date) (unknown) (unknown) Lower extremities:[] (units unknown) (unknown) (unknown) (no date) (unknown) (unknown) Lumbar:[] (units unknown) (unknown) (unknown) (no date) (unknown) (unknown) MULTIVITAMIN (Multivitamin -) ##0 03/22/10 [History Confirmed (units unknown) (unknown) (unknown) (no date) (unknown) (unknown) Medical Histor y (units unknown) (unknown) (unknown) (no date) (unknown) (unknown) Medications (units unknown) (unknown) (unknown) (no date) (unknown) (unknown) Musculoskeletal: (un its unknown) (unknown) (unknown) (no date) (unknown) (unknown) Neck: normal v isual inspection (units unknown) (unknown) (unknown) (no date) (unknown) (unknown) Neuro: alert a nd oriented x3, normal cognition, speech normal, normal gait (units unknown) (unknown) (unknown) (no date) (unknown) (unknown) Nose: external nose normal (units unknown) (unknown) (unknown) (no date) (unknown) (unknown) Obesity (units unknown) (unknown) (unknown) (no date) (unknown) (unknown) Orientation: a lert and oriented x3 (units unknown) (unknown) (unknown) (no date) (unknown) (unknown) Osteopathic exam: (u nits unknown) (unknown) (unknown) (no date) (unknown) (unknown) Oxygen Deliver y Method room air (units unknown) (unknown) (unknown) (no date) (unknown) (unknown) PFSH (units unknown) (unknown) (unknown) (no date) (unknown) (unknown) Patient: Zoya James MR#: [id number] (units unknown) (unknown) (unknown) (no date) (unknown) (unknown) Pelvis:[] (units unknown) (unknown) (unknown) (no date) (unknown) (unknown) Position Sitting (un its unknown) (unknown) (unknown) (no date) (unknown) (unknown) Psych: grossly normal and well kempt, mental status grossly normal, speech and (units unknown) (unknown) (unknown) (no date) (unknown) (unknown) Pulse 95 H (units unknown) (unknown) (unknown) (no date) (unknown) (unknown) Pulse Oximetry (%) 98 (units unknown) (unknown) (unknown) (no date) (unknown) (unknown) Pulse Source Monitor (units unknown) (unknown) (unknown) (no date) (unknown) (unknown) Reason For Visit (un its unknown) (unknown) (unknown) (no date) (unknown) (unknown) Resp: normal respiratory effort and able to speak in complete sentences (units unknown) (unknown) (unknown) (no date) (unknown) (unknown) Ribcage:[] (units unknown) (unknown) (unknown) (no date) (unknown) (unknown) Sacrum:[] (units unknown) (unknown) (unknown) (no date) (unknown) (unknown) Sclera: sclera e normal (units unknown) (unknown) (unknown) (no date) (unknown) (unknown) Signed By: (units unknown) (unknown) (unknown) (no date) (unknown) (unknown) Skin: no rashe s or lesions noted (units unknown) (unknown) (unknown) (no date) (unknown) (unknown) Smoking Status : Never smoker (units unknown) (unknown) (unknown) (no date) (unknown) (unknown) Sulfa (Sulfona mide Antibiotics) Adverse Reaction (Verified 02/12/23 14:02) (units unknown) (unknown) (unknown) (no date) (unknown) (unknown) Surgical Histo ry (units unknown) (unknown) (unknown) (no date) (unknown) (unknown) Temp 97.6 F (units unknown) (unknown) (unknown) (no date) (unknown) (unknown) Temp Source Temporal Artery Scan (units unknown) (unknown) (unknown) (no date) (unknown) (unknown) This note may have been all or partially generated using voice recognition (units unknown) (unknown) (unknown) (no date) (unknown) (unknown) Thoracic:[] (units unknown) (unknown) (unknown) (no date) (unknown) (unknown) Tobacco + Subs tance Use (units unknown) (unknown) (unknown) (no date) (unknown) (unknown) Tobacco Status (unit s unknown) (unknown) (unknown) (no date) (unknown) (unknown) Upper extremities:[] (units unknown) (unknown) (unknown) (no date) (unknown) (unknown) Visit Reasons: Right leg pain *Horras* (units unknown) (unknown) (unknown) (no date) (unknown) (unknown) Vitals (units unknown) (unknown) (unknown) (no date) (unknown) (unknown) Weight 273 lb 6 oz ( units unknown) (unknown) (unknown) (no date) (unknown) (unknown) [History Confi rmed 02/12/23] (units unknown) (unknown) (unknown) (no date) (unknown) (unknown) acetaminophen 500 mg tablet (Tylenol Extra Strength) 500 mg PO Q6H PRN 01/31/23 (units unknown) (unknown) (unknown) (no date) (unknown) (unknown) acyclovir Nilesh rgy (Verified 02/12/23 14:02) (units unknown) (unknown) (unknown) (no date) (unknown) (unknown) and obesity presents with complaint of right leg pain. She reports 4 weeks ago (units unknown) (unknown) (unknown) (no date) (unknown) (unknown) codeine Allerg y (Verified 02/12/23 14:02) (units unknown) (unknown) (unknown) (no date) (unknown) (unknown) cyclobenzaprin e 10 mg tablet 10 mg PO BID PRN muscle spasm #30 tabs 02/06/23 [Rx (units unknown) (unknown) (unknown) (no date) (unknown) (unknown) difficulty breathing (units unknown) (unknown) (unknown) (no date) (unknown) (unknown) given predniso ne, cyclobenzaprine, and ibuprofen, but no imaging. There are new (units unknown) (unknown) (unknown) (no date) (unknown) (unknown) have occurred. If there are any questions, please contact the Medical Records (units unknown) (unknown) (unknown) (no date) (unknown) (unknown) her right leg became weak to the point of nearly tripping her, along with (units unknown) (unknown) (unknown) (no date) (unknown) (unknown) ibuprofen 200 mg tablet 600 mg PO BID PRN pain #60 tabs 02/06/23 [Rx Confirmed (units unknown) (unknown) (unknown) (no date) (unknown) (unknown) latex Allergy (Verified 02/12/23 14:02) (units unknown) (unknown) (unknown) (no date) (unknown) (unknown) may occur. Occasional wrong-word or 'sound-alike' substitutions may have (units unknown) (unknown) (unknown) (no date) (unknown) (unknown) movement marge l, congruent mood (units unknown) (unknown) (unknown) (no date) (unknown) (unknown) numbness that is spreading in her calf. She has been to the ER twice and been (units unknown) (unknown) (unknown) (no date) (unknown) (unknown) occurred due t o the inherent limitations of voice recognition software. Please (units unknown) (unknown) (unknown) (no date) (unknown) (unknown) rash (units unknown) (unknown) (unknown) (no date) (unknown) (unknown) read the note carefully and recognize, using context, where these substitutions (units unknown) (unknown) (unknown) (no date) (unknown) (unknown) software. Alth ough every effort is made to edit content, pluck separator errors (units unknown) (unknown) (unknown) (no date) (unknown) (unknown) varicosities i n the lower leg since this started. (units unknown) (unknown) Result panel 101 (unknown) (no date) (unknown) (unknown) (no value) (units unknown) (unknown) (unknown) (no date) (unknown) (unknown) (1) Weakness o f right lower extremity: (units unknown) (unknown) (unknown) (no date) (unknown) (unknown) (2) Varicose v ein of leg: (units unknown) (unknown) (unknown) (no date) (unknown) (unknown) (3) Right leg numbness: (units unknown) (unknown) (unknown) (no date) (unknown) (unknown) (4) Leg edema, right: (units unknown) (unknown) (unknown) (no date) (unknown) (unknown) 02/12/23 (units unknown) (unknown) (unknown) (no date) (unknown) (unknown) 02/12/23] (units unknown) (unknown) (unknown) (no date) (unknown) (unknown) 14:02 (units unknown) (unknown) (unknown) (no date) (unknown) (unknown) [id number] (units unknown) (unknown) (unknown) (no date) (unknown) (unknown) 37 yo female presents for persistent right leg pain. (units unknown) (unknown) (unknown) (no date) (unknown) (unknown) 37-year-old wo man, patient of Dr. Ray, with history of carpal tunnel syndrome (units unknown) (unknown) (unknown) (no date) (unknown) (unknown) Abdomen:[] (units unknown) (unknown) (unknown) (no date) (unknown) (unknown) Abnormal Pap s mear of cervix () (units unknown) (unknown) (unknown) (no date) (unknown) (unknown) Age/Sex: 37 / F Date of Service: (units unknown) (unknown) (unknown) (no date) (unknown) (unknown) Allergies (units unknown) (unknown) (unknown) (no date) (unknown) (unknown) Alopecia (units unknown) (unknown) (unknown) (no date) (unknown) (unknown) [place] [id number] (units unknown) (unknown) (unknown) (no date) (unknown) (unknown) Anesthesia (units unknown) (unknown) (unknown) (no date) (unknown) (unknown) Assessment + Plan (u nits unknown) (unknown) (unknown) (no date) (unknown) (unknown) Attending Dr: Terrell Cifuentes D.O. (units unknown) (unknown) (unknown) (no date) (unknown) (unknown) BMI 45.5 (units unknown) (unknown) (unknown) (no date) (unknown) (unknown) BP 144/82 H (units unknown) (unknown) (unknown) (no date) (unknown) (unknown) Bilateral hand pain (units unknown) (unknown) (unknown) (no date) (unknown) (unknown) Blood Pressure Location Lt brachial (units unknown) (unknown) (unknown) (no date) (unknown) (unknown) Carpal tunnel syndrome on both sides (units unknown) (unknown) (unknown) (no date) (unknown) (unknown) Cervical:[] (units unknown) (unknown) (unknown) (no date) (unknown) (unknown) Chief Complaint (uni ts unknown) (unknown) (unknown) (no date) (unknown) (unknown) Chief Complain t: Leg pain (units unknown) (unknown) (unknown) (no date) (unknown) (unknown) Confirmed 02/12/23] (units unknown) (unknown) (unknown) (no date) (unknown) (unknown) Conjunctivae: conjunctivae normal (units unknown) (unknown) (unknown) (no date) (unknown) (unknown) Cranial:[] (units unknown) (unknown) (unknown) (no date) (unknown) (unknown) : 7 Acct:[id number] (units unknown) (unknown) (unknown) (no date) (unknown) (unknown) Dept at . (units unknown) (unknown) (unknown) (no date) (unknown) (unknown) Details: (units unknown) (unknown) (unknown) (no date) (unknown) (unknown) Diabetes mellitus (u nits unknown) (unknown) (unknown) (no date) (unknown) (unknown) Difficulty Breathing (units unknown) (unknown) (unknown) (no date) (unknown) (unknown) Documented By: Terrell Cifuentes D.O. 02/12/23 0857 (units unknown) (unknown) (unknown) (no date) (unknown) (unknown) Draft (units unknown) (unknown) (unknown) (no date) (unknown) (unknown) Drug use (units unknown) (unknown) (unknown) (no date) (unknown) (unknown) Exam Narrative (unit s unknown) (unknown) (unknown) (no date) (unknown) (unknown) Exam Narrative: (uni ts unknown) (unknown) (unknown) (no date) (unknown) (unknown) Exam (units unknown) (unknown) (unknown) (no date) (unknown) (unknown) Eyelids: eyeli ds normal (units unknown) (unknown) (unknown) (no date) (unknown) (unknown) Eyes (units unknown) (unknown) (unknown) (no date) (unknown) (unknown) Family History (units unknown) (unknown) (unknown) (no date) (unknown) (unknown) Family Practic e Office Visit (units unknown) (unknown) (unknown) (no date) (unknown) (unknown) Father Diabete s mellitus (units unknown) (unknown) (unknown) (no date) (unknown) (unknown) Fatigue (units unknown) (unknown) (unknown) (no date) (unknown) (unknown) [facility] (units unknown) (unknown) (unknown) (no date) (unknown) (unknown) General: appea pravin normal, both eyes and all related structures (units unknown) (unknown) (unknown) (no date) (unknown) (unknown) General: cooperative, healthy appearing and comfortable (units unknown) (unknown) (unknown) (no date) (unknown) (unknown) Grandfather Cancer ( units unknown) (unknown) (unknown) (no date) (unknown) (unknown) Grandfather Cancer (units unknown) (unknown) (unknown) (no date) (unknown) (unknown) Grandmother Cancer ( units unknown) (unknown) (unknown) (no date) (unknown) (unknown) Grandmother Stroke ( units unknown) (unknown) (unknown) (no date) (unknown) (unknown) HENMT (units unknown) (unknown) (unknown) (no date) (unknown) (unknown) HPI (units unknown) (unknown) (unknown) (no date) (unknown) (unknown) Head: normal t o inspection (units unknown) (unknown) (unknown) (no date) (unknown) (unknown) Height 5 ft 5 in (un its unknown) (unknown) (unknown) (no date) (unknown) (unknown) History of appendectomy (units unknown) (unknown) (unknown) (no date) (unknown) (unknown) History of jaydon arean section (units unknown) (unknown) (unknown) (no date) (unknown) (unknown) History of hea rt disease (units unknown) (unknown) (unknown) (no date) (unknown) (unknown) Hyperlipidemia (unit s unknown) (unknown) (unknown) (no date) (unknown) (unknown) Hypertension (units unknown) (unknown) (unknown) (no date) (unknown) (unknown) Intake Note: (units unknown) (unknown) (unknown) (no date) (unknown) (unknown) Intake perform ed by: Timmy Oquendo (units unknown) (unknown) (unknown) (no date) (unknown) (unknown) Intake (units unknown) (unknown) (unknown) (no date) (unknown) (unknown) Intake- Leo elaine Staff (units unknown) (unknown) (unknown) (no date) (unknown) (unknown) Leg edema, right (un its unknown) (unknown) (unknown) (no date) (unknown) (unknown) Loc: [facility] (units unknown) (unknown) (unknown) (no date) (unknown) (unknown) Lower extremities:[] (units unknown) (unknown) (unknown) (no date) (unknown) (unknown) Lumbar:[] (units unknown) (unknown) (unknown) (no date) (unknown) (unknown) MULTIVITAMIN (Multivitamin -) ##0 03/22/10 [History Confirmed (units unknown) (unknown) (unknown) (no date) (unknown) (unknown) Medical Histor y (Updated 02/12/23 @ 14:21 by Terrell Cifuentes DO) (units unknown) (unknown) (unknown) (no date) (unknown) (unknown) Medications (units unknown) (unknown) (unknown) (no date) (unknown) (unknown) Musculoskeletal: (un its unknown) (unknown) (unknown) (no date) (unknown) (unknown) Neck: normal v isual inspection (units unknown) (unknown) (unknown) (no date) (unknown) (unknown) Neuro: alert a nd oriented x3, normal cognition, speech normal, normal gait (units unknown) (unknown) (unknown) (no date) (unknown) (unknown) Nose: external nose normal (units unknown) (unknown) (unknown) (no date) (unknown) (unknown) Obesity (units unknown) (unknown) (unknown) (no date) (unknown) (unknown) Orders (units unknown) (unknown) (unknown) (no date) (unknown) (unknown) Orders: (units unknown) (unknown) (unknown) (no date) (unknown) (unknown) Orientation: a lert and oriented x3 (units unknown) (unknown) (unknown) (no date) (unknown) (unknown) Osteopathic exam: (u nits unknown) (unknown) (unknown) (no date) (unknown) (unknown) Oxygen Deliver y Method room air (units unknown) (unknown) (unknown) (no date) (unknown) (unknown) PFSH (units unknown) (unknown) (unknown) (no date) (unknown) (unknown) Patient: Zoya James MR#: [id number] (units unknown) (unknown) (unknown) (no date) (unknown) (unknown) Pelvis:[] (units unknown) (unknown) (unknown) (no date) (unknown) (unknown) Position Sitting (un its unknown) (unknown) (unknown) (no date) (unknown) (unknown) Psych: grossly normal and well kempt, mental status grossly normal, speech and (units unknown) (unknown) (unknown) (no date) (unknown) (unknown) Pulse 95 H (units unknown) (unknown) (unknown) (no date) (unknown) (unknown) Pulse Oximetry (%) 98 (units unknown) (unknown) (unknown) (no date) (unknown) (unknown) Pulse Source Monitor (units unknown) (unknown) (unknown) (no date) (unknown) (unknown) Reason For Visit (un its unknown) (unknown) (unknown) (no date) (unknown) (unknown) Resp: normal respiratory effort and able to speak in complete sentences (units unknown) (unknown) (unknown) (no date) (unknown) (unknown) Ribcage:[] (units unknown) (unknown) (unknown) (no date) (unknown) (unknown) Right leg numbness ( units unknown) (unknown) (unknown) (no date) (unknown) (unknown) Sacrum:[] (units unknown) (unknown) (unknown) (no date) (unknown) (unknown) Sclera: sclera e normal (units unknown) (unknown) (unknown) (no date) (unknown) (unknown) Signed By: (units unknown) (unknown) (unknown) (no date) (unknown) (unknown) Skin: no rashe s or lesions noted (units unknown) (unknown) (unknown) (no date) (unknown) (unknown) Smoking Status : Never smoker (units unknown) (unknown) (unknown) (no date) (unknown) (unknown) Status: Acute (units unknown) (unknown) (unknown) (no date) (unknown) (unknown) Sulfa (Sulfona mide Antibiotics) Adverse Reaction (Verified 02/12/23 14:02) (units unknown) (unknown) (unknown) (no date) (unknown) (unknown) Surgical Histo ry (units unknown) (unknown) (unknown) (no date) (unknown) (unknown) Temp 97.6 F (units unknown) (unknown) (unknown) (no date) (unknown) (unknown) Temp Source Temporal Artery Scan (units unknown) (unknown) (unknown) (no date) (unknown) (unknown) This note may have been all or partially generated using voice recognition (units unknown) (unknown) (unknown) (no date) (unknown) (unknown) Thoracic:[] (units unknown) (unknown) (unknown) (no date) (unknown) (unknown) Tobacco + Subs tance Use (units unknown) (unknown) (unknown) (no date) (unknown) (unknown) Tobacco Status (unit s unknown) (unknown) (unknown) (no date) (unknown) (unknown) US arterial du plex LE RT 1 Day I83.90 - Asymptomatic varicose veins of (units unknown) (unknown) (unknown) (no date) (unknown) (unknown) US periph veno us low extrem lt 1 Day (units unknown) (unknown) (unknown) (no date) (unknown) (unknown) Upper extremities:[] (units unknown) (unknown) (unknown) (no date) (unknown) (unknown) Varicose vein of leg (units unknown) (unknown) (unknown) (no date) (unknown) (unknown) Visit Reasons: Right leg pain *Horras* (units unknown) (unknown) (unknown) (no date) (unknown) (unknown) Vitals (units unknown) (unknown) (unknown) (no date) (unknown) (unknown) Weakness of ri ght lower extremity (units unknown) (unknown) (unknown) (no date) (unknown) (unknown) Weight 273 lb 6 oz ( units unknown) (unknown) (unknown) (no date) (unknown) (unknown) [History Confi rmed 02/12/23] (units unknown) (unknown) (unknown) (no date) (unknown) (unknown) acetaminophen 500 mg tablet (Tylenol Extra Strength) 500 mg PO Q6H PRN 01/31/23 (units unknown) (unknown) (unknown) (no date) (unknown) (unknown) acyclovir Nilesh rgy (Verified 02/12/23 14:02) (units unknown) (unknown) (unknown) (no date) (unknown) (unknown) and obesity presents with complaint of right leg pain. She reports 4 weeks ago (units unknown) (unknown) (unknown) (no date) (unknown) (unknown) codeine Allerg y (Verified 02/12/23 14:02) (units unknown) (unknown) (unknown) (no date) (unknown) (unknown) cyclobenzaprin e 10 mg tablet 10 mg PO BID PRN muscle spasm #30 tabs 02/06/23 [Rx (units unknown) (unknown) (unknown) (no date) (unknown) (unknown) difficulty breathing (units unknown) (unknown) (unknown) (no date) (unknown) (unknown) given predniso ne, cyclobenzaprine, and ibuprofen, but no imaging. There are new (units unknown) (unknown) (unknown) (no date) (unknown) (unknown) have occurred. If there are any questions, please contact the Medical Records (units unknown) (unknown) (unknown) (no date) (unknown) (unknown) her right leg became weak to the point of nearly tripping her, along with (units unknown) (unknown) (unknown) (no date) (unknown) (unknown) ibuprofen 200 mg tablet 600 mg PO BID PRN pain #60 tabs 02/06/23 [Rx Confirmed (units unknown) (unknown) (unknown) (no date) (unknown) (unknown) latex Allergy (Verified 02/12/23 14:02) (units unknown) (unknown) (unknown) (no date) (unknown) (unknown) may occur. Occasional wrong-word or 'sound-alike' substitutions may have (units unknown) (unknown) (unknown) (no date) (unknown) (unknown) movement marge l, congruent mood (units unknown) (unknown) (unknown) (no date) (unknown) (unknown) numbness that is spreading in her calf. She has been to the ER twice and been (units unknown) (unknown) (unknown) (no date) (unknown) (unknown) occurred due t o the inherent limitations of voice recognition software. Please (units unknown) (unknown) (unknown) (no date) (unknown) (unknown) rash (units unknown) (unknown) (unknown) (no date) (unknown) (unknown) read the note carefully and recognize, using context, where these substitutions (units unknown) (unknown) (unknown) (no date) (unknown) (unknown) software. Alth ough every effort is made to edit content, pluck separator errors (units unknown) (unknown) (unknown) (no date) (unknown) (unknown) symptoms and s igns involving the musculoskeletal system, R60.0 - Localized edema (units unknown) (unknown) (unknown) (no date) (unknown) (unknown) unspecified lo wer extremity, R20.0 - Anesthesia of skin, R29.898 - Other (units unknown) (unknown) (unknown) (no date) (unknown) (unknown) varicosities i n the lower leg since this started. (units unknown) (unknown) Result panel 102 (unknown) (no date) (unknown) (unknown) (no value) (units unknown) (unknown) (unknown) (no date) (unknown) (unknown) (1) Weakness o f right lower extremity: (units unknown) (unknown) (unknown) (no date) (unknown) (unknown) (2) Varicose v ein of leg: (units unknown) (unknown) (unknown) (no date) (unknown) (unknown) (3) Right leg numbness: (units unknown) (unknown) (unknown) (no date) (unknown) (unknown) (4) Leg edema, right: (units unknown) (unknown) (unknown) (no date) (unknown) (unknown) 02/12/23 1548 (units unknown) (unknown) (unknown) (no date) (unknown) (unknown) 02/12/23 (units unknown) (unknown) (unknown) (no date) (unknown) (unknown) 02/12/23] (units unknown) (unknown) (unknown) (no date) (unknown) (unknown) 14:02 (units unknown) (unknown) (unknown) (no date) (unknown) (unknown) [id number] (units unknown) (unknown) (unknown) (no date) (unknown) (unknown) 37 yo female presents for persistent right leg pain. (units unknown) (unknown) (unknown) (no date) (unknown) (unknown) 37-year-old wo man, patient of Dr. Ray, with history of carpal tunnel syndrome (units unknown) (unknown) (unknown) (no date) (unknown) (unknown) Abnormal Pap s mear of cervix (-2018) (units unknown) (unknown) (unknown) (no date) (unknown) (unknown) Age/Sex: 37 / F Date of Service: (units unknown) (unknown) (unknown) (no date) (unknown) (unknown) Allergies (units unknown) (unknown) (unknown) (no date) (unknown) (unknown) Alopecia (units unknown) (unknown) (unknown) (no date) (unknown) (unknown) [place] [address] (units unknown) (unknown) (unknown) (no date) (unknown) (unknown) Anesthesia (units unknown) (unknown) (unknown) (no date) (unknown) (unknown) Assessment + Plan (u nits unknown) (unknown) (unknown) (no date) (unknown) (unknown) Attending Dr: Terrell Cifuentes D.O. (units unknown) (unknown) (unknown) (no date) (unknown) (unknown) BMI 45.5 (units unknown) (unknown) (unknown) (no date) (unknown) (unknown) BP 144/82 H (units unknown) (unknown) (unknown) (no date) (unknown) (unknown) Bilateral hand pain (units unknown) (unknown) (unknown) (no date) (unknown) (unknown) Blood Pressure Location Lt brachial (units unknown) (unknown) (unknown) (no date) (unknown) (unknown) Carpal tunnel syndrome on both sides (units unknown) (unknown) (unknown) (no date) (unknown) (unknown) Chief Complaint (uni ts unknown) (unknown) (unknown) (no date) (unknown) (unknown) Chief Complain t: Leg pain (units unknown) (unknown) (unknown) (no date) (unknown) (unknown) Code(s): I83.9 1 - Asymptomatic varicose veins of right lower extremity (units unknown) (unknown) (unknown) (no date) (unknown) (unknown) Confirmed 02/12/23] (units unknown) (unknown) (unknown) (no date) (unknown) (unknown) Conjunctivae: conjunctivae normal (units unknown) (unknown) (unknown) (no date) (unknown) (unknown) : 7 Acct:[id number] (units unknown) (unknown) (unknown) (no date) (unknown) (unknown) Dept at . (units unknown) (unknown) (unknown) (no date) (unknown) (unknown) Details: (units unknown) (unknown) (unknown) (no date) (unknown) (unknown) Diabetes mellitus (u nits unknown) (unknown) (unknown) (no date) (unknown) (unknown) Difficulty Breathing (units unknown) (unknown) (unknown) (no date) (unknown) (unknown) Documented By: Terrell Cifuentes D.O. 02/12/23 0857 (units unknown) (unknown) (unknown) (no date) (unknown) (unknown) Drug use (units unknown) (unknown) (unknown) (no date) (unknown) (unknown) Exam Narrative (unit s unknown) (unknown) (unknown) (no date) (unknown) (unknown) Exam Narrative: (uni ts unknown) (unknown) (unknown) (no date) (unknown) (unknown) Exam (units unknown) (unknown) (unknown) (no date) (unknown) (unknown) Extremities: R ight lower leg shows varicosities and mild edema. These are not (units unknown) (unknown) (unknown) (no date) (unknown) (unknown) Eyelids: eyeli ds normal (units unknown) (unknown) (unknown) (no date) (unknown) (unknown) Eyes (units unknown) (unknown) (unknown) (no date) (unknown) (unknown) Family History (units unknown) (unknown) (unknown) (no date) (unknown) (unknown) Family Practic e Office Visit (units unknown) (unknown) (unknown) (no date) (unknown) (unknown) Father Diabete s mellitus (units unknown) (unknown) (unknown) (no date) (unknown) (unknown) Fatigue (units unknown) (unknown) (unknown) (no date) (unknown) (unknown) [facility] (units unknown) (unknown) (unknown) (no date) (unknown) (unknown) General: appea pravin normal, both eyes and all related structures (units unknown) (unknown) (unknown) (no date) (unknown) (unknown) General: cooperative, healthy appearing and comfortable (units unknown) (unknown) (unknown) (no date) (unknown) (unknown) Grandfather Cancer ( units unknown) (unknown) (unknown) (no date) (unknown) (unknown) Grandfather Cancer (units unknown) (unknown) (unknown) (no date) (unknown) (unknown) Grandmother Cancer ( units unknown) (unknown) (unknown) (no date) (unknown) (unknown) Grandmother Stroke ( units unknown) (unknown) (unknown) (no date) (unknown) (unknown) HENMT (units unknown) (unknown) (unknown) (no date) (unknown) (unknown) HPI (units unknown) (unknown) (unknown) (no date) (unknown) (unknown) Head: normal t o inspection (units unknown) (unknown) (unknown) (no date) (unknown) (unknown) Height 5 ft 5 in (un its unknown) (unknown) (unknown) (no date) (unknown) (unknown) History of appendectomy (units unknown) (unknown) (unknown) (no date) (unknown) (unknown) History of jaydon arean section (units unknown) (unknown) (unknown) (no date) (unknown) (unknown) History of hea rt disease (units unknown) (unknown) (unknown) (no date) (unknown) (unknown) Hyperlipidemia (unit s unknown) (unknown) (unknown) (no date) (unknown) (unknown) Hypertension (units unknown) (unknown) (unknown) (no date) (unknown) (unknown) Intake Note: (units unknown) (unknown) (unknown) (no date) (unknown) (unknown) Intake perform ed by: Timmy Oquendo (units unknown) (unknown) (unknown) (no date) (unknown) (unknown) Intake (units unknown) (unknown) (unknown) (no date) (unknown) (unknown) Intake- Clinci al Staff (units unknown) (unknown) (unknown) (no date) (unknown) (unknown) Leg edema, right (un its unknown) (unknown) (unknown) (no date) (unknown) (unknown) Loc: [facility] (units unknown) (unknown) (unknown) (no date) (unknown) (unknown) MULTIVITAMIN (Multivitamin -) ##0 03/22/10 [History Confirmed (units unknown) (unknown) (unknown) (no date) (unknown) (unknown) Medical Histor y (Updated 02/12/23 @ 15:48 by Terrell Cifuentes DO) (units unknown) (unknown) (unknown) (no date) (unknown) (unknown) Medications (units unknown) (unknown) (unknown) (no date) (unknown) (unknown) Neck: normal v isual inspection (units unknown) (unknown) (unknown) (no date) (unknown) (unknown) Neuro: alert a nd oriented x3, normal cognition, speech normal, normal gait (units unknown) (unknown) (unknown) (no date) (unknown) (unknown) Nose: external nose normal (units unknown) (unknown) (unknown) (no date) (unknown) (unknown) Obesity (units unknown) (unknown) (unknown) (no date) (unknown) (unknown) Orders (units unknown) (unknown) (unknown) (no date) (unknown) (unknown) Orders: (units unknown) (unknown) (unknown) (no date) (unknown) (unknown) Orientation: a lert and oriented x3 (units unknown) (unknown) (unknown) (no date) (unknown) (unknown) Oxygen Deliver y Method room air (units unknown) (unknown) (unknown) (no date) (unknown) (unknown) PFSH (units unknown) (unknown) (unknown) (no date) (unknown) (unknown) Patient: Zoya James MR#: [id number] (units unknown) (unknown) (unknown) (no date) (unknown) (unknown) Plan (units unknown) (unknown) (unknown) (no date) (unknown) (unknown) Position Sitting (un its unknown) (unknown) (unknown) (no date) (unknown) (unknown) Psych: grossly normal and well kempt, mental status grossly normal, speech and (units unknown) (unknown) (unknown) (no date) (unknown) (unknown) Pulse 95 H (units unknown) (unknown) (unknown) (no date) (unknown) (unknown) Pulse Oximetry (%) 98 (units unknown) (unknown) (unknown) (no date) (unknown) (unknown) Pulse Source Monitor (units unknown) (unknown) (unknown) (no date) (unknown) (unknown) Qualifiers: (units unknown) (unknown) (unknown) (no date) (unknown) (unknown) Reason For Visit (un its unknown) (unknown) (unknown) (no date) (unknown) (unknown) Resp: normal respiratory effort and able to speak in complete sentences (units unknown) (unknown) (unknown) (no date) (unknown) (unknown) Right leg numbness ( units unknown) (unknown) (unknown) (no date) (unknown) (unknown) Sclera: sclera e normal (units unknown) (unknown) (unknown) (no date) (unknown) (unknown) Signed By: <Electronically signed by Terrell Cifuentes D.O.> (units unknown) (unknown) (unknown) (no date) (unknown) (unknown) Signed (units unknown) (unknown) (unknown) (no date) (unknown) (unknown) Skin: no rashe s or lesions noted (units unknown) (unknown) (unknown) (no date) (unknown) (unknown) Smoking Status : Never smoker (units unknown) (unknown) (unknown) (no date) (unknown) (unknown) Status: Acute (units unknown) (unknown) (unknown) (no date) (unknown) (unknown) Sulfa (Sulfona mide Antibiotics) Adverse Reaction (Verified 02/12/23 14:02) (units unknown) (unknown) (unknown) (no date) (unknown) (unknown) Surgical Histo ry (units unknown) (unknown) (unknown) (no date) (unknown) (unknown) Temp 97.6 F (units unknown) (unknown) (unknown) (no date) (unknown) (unknown) Temp Source Temporal Artery Scan (units unknown) (unknown) (unknown) (no date) (unknown) (unknown) This may be secondary to a DVT or sudden onset venous insufficiency versus mild (units unknown) (unknown) (unknown) (no date) (unknown) (unknown) This note may have been all or partially generated using voice recognition (units unknown) (unknown) (unknown) (no date) (unknown) (unknown) Tobacco + Subs tance Use (units unknown) (unknown) (unknown) (no date) (unknown) (unknown) Tobacco Status (unit s unknown) (unknown) (unknown) (no date) (unknown) (unknown) US arterial du plex LE RT 1 Day I83.90 - Asymptomatic varicose veins of (units unknown) (unknown) (unknown) (no date) (unknown) (unknown) US periph veno us low extrem lt Today (units unknown) (unknown) (unknown) (no date) (unknown) (unknown) Varicose vein complication: unspecified Laterality: right Qualified (units unknown) (unknown) (unknown) (no date) (unknown) (unknown) Varicose vein of leg (units unknown) (unknown) (unknown) (no date) (unknown) (unknown) Visit Reasons: Right leg pain *Horras* (units unknown) (unknown) (unknown) (no date) (unknown) (unknown) Vitals (units unknown) (unknown) (unknown) (no date) (unknown) (unknown) We have ordere d stat ultrasound of the right lower leg. There is acute venous (units unknown) (unknown) (unknown) (no date) (unknown) (unknown) Weakness of ri ght lower extremity (units unknown) (unknown) (unknown) (no date) (unknown) (unknown) Weight 273 lb 6 oz ( units unknown) (unknown) (unknown) (no date) (unknown) (unknown) [History Confi rmed 02/12/23] (units unknown) (unknown) (unknown) (no date) (unknown) (unknown) acetaminophen 500 mg tablet (Tylenol Extra Strength) 500 mg PO Q6H PRN 01/31/23 (units unknown) (unknown) (unknown) (no date) (unknown) (unknown) acyclovir Nilesh rgy (Verified 02/12/23 14:02) (units unknown) (unknown) (unknown) (no date) (unknown) (unknown) and obesity presents with complaint of right leg pain. She reports 4 weeks ago (units unknown) (unknown) (unknown) (no date) (unknown) (unknown) codeine Allerg y (Verified 02/12/23 14:02) (units unknown) (unknown) (unknown) (no date) (unknown) (unknown) compartment syndrome. We will contact patient today with ultrasound results and (units unknown) (unknown) (unknown) (no date) (unknown) (unknown) cyclobenzaprin e 10 mg tablet 10 mg PO BID PRN muscle spasm #30 tabs 02/06/23 [Rx (units unknown) (unknown) (unknown) (no date) (unknown) (unknown) difficulty breathing (units unknown) (unknown) (unknown) (no date) (unknown) (unknown) erythema or pain. (u nits unknown) (unknown) (unknown) (no date) (unknown) (unknown) follow-up. We did not send the patient back to the ER because there was no (units unknown) (unknown) (unknown) (no date) (unknown) (unknown) given predniso ne, cyclobenzaprine, and ibuprofen, but no imaging. There are new (units unknown) (unknown) (unknown) (no date) (unknown) (unknown) have occurred. If there are any questions, please contact the Medical Records (units unknown) (unknown) (unknown) (no date) (unknown) (unknown) her right leg became weak to the point of nearly tripping her, along with (units unknown) (unknown) (unknown) (no date) (unknown) (unknown) ibuprofen 200 mg tablet 600 mg PO BID PRN pain #60 tabs 02/06/23 [Rx Confirmed (units unknown) (unknown) (unknown) (no date) (unknown) (unknown) in evidence in the left lower leg. (units unknown) (unknown) (unknown) (no date) (unknown) (unknown) in the ER a D- dimer test was taken that was elevated but she was told it was too (units unknown) (unknown) (unknown) (no date) (unknown) (unknown) insufficiency causing paresthesias and weakness, varicosities and swelling. (units unknown) (unknown) (unknown) (no date) (unknown) (unknown) latex Allergy (Verified 02/12/23 14:02) (units unknown) (unknown) (unknown) (no date) (unknown) (unknown) low to indicat e a DVT. (units unknown) (unknown) (unknown) (no date) (unknown) (unknown) may occur. Occasional wrong-word or 'sound-alike' substitutions may have (units unknown) (unknown) (unknown) (no date) (unknown) (unknown) movement marge l, congruent mood (units unknown) (unknown) (unknown) (no date) (unknown) (unknown) numbness that is spreading in her calf. She has been to the ER twice and been (units unknown) (unknown) (unknown) (no date) (unknown) (unknown) occurred due t o the inherent limitations of voice recognition software. Please (units unknown) (unknown) (unknown) (no date) (unknown) (unknown) rash (units unknown) (unknown) (unknown) (no date) (unknown) (unknown) read the note carefully and recognize, using context, where these substitutions (units unknown) (unknown) (unknown) (no date) (unknown) (unknown) software. Alth ough every effort is made to edit content, pluck separator errors (units unknown) (unknown) (unknown) (no date) (unknown) (unknown) symptoms and s igns involving the musculoskeletal system, R60.0 - Localized edema (units unknown) (unknown) (unknown) (no date) (unknown) (unknown) unspecified lo wer extremity, R20.0 - Anesthesia of skin, R29.898 - Other (units unknown) (unknown) (unknown) (no date) (unknown) (unknown) varicosities i n the lower leg since this started. She reports that 4 weeks ago (units unknown) (unknown) Result panel 103 (unknown) (no date) (unknown) (unknown) (no value) (units unknown) (unknown) (unknown) (no date) (unknown) (unknown) [id number] (units unknown) (unknown) (unknown) (no date) (unknown) (unknown) 02/12/23 (units unknown) (unknown) (unknown) (no date) (unknown) (unknown) [address] [place] [address] (un its unknown) (unknown) (unknown) (no date) (unknown) (unknown) Accession Numb er: [id number] (units unknown) (unknown) (unknown) (no date) (unknown) (unknown) Age/Sex: 37 / F Date of Service: (units unknown) (unknown) (unknown) (no date) (unknown) (unknown) [place] [address] (units unknown) (unknown) (unknown) (no date) (unknown) (unknown) Approved by: Dwight Mcallister M.D. on 02/13/2023 at 15:35 (units unknown) (unknown) (unknown) (no date) (unknown) (unknown) COMPARISON: None. (u nits unknown) (unknown) (unknown) (no date) (unknown) (unknown) : 7 Acct:[id number] (units unknown) (unknown) (unknown) (no date) (unknown) (unknown) Dictated by: Dwight Mcallister M.D. on 02/13/2023 at 15:35 (units unknown) (unknown) (unknown) (no date) (unknown) (unknown) FINDINGS: The common femoral, femoral and popliteal veins are normally (units unknown) (unknown) (unknown) (no date) (unknown) (unknown) IMPRESSION: (units unknown) (unknown) (unknown) (no date) (unknown) (unknown) INDICATIONS: EDEMA ( units unknown) (unknown) (unknown) (no date) (unknown) (unknown) [facility] (uni ts unknown) (unknown) (unknown) (no date) (unknown) (unknown) Loc: [place] (units unknown) (unknown) (unknown) (no date) (unknown) (unknown) Negative for d eep venous thrombosis. (units unknown) (unknown) (unknown) (no date) (unknown) (unknown) Ordering Provi parveen: Terrell Cifuentes D.O. (units unknown) (unknown) (unknown) (no date) (unknown) (unknown) PROCEDURE: US PERIPH VENOUS LOW EXTREM RT (units unknown) (unknown) (unknown) (no date) (unknown) (unknown) Patient: Zoya James MR#: [id number] (units unknown) (unknown) (unknown) (no date) (unknown) (unknown) Procedure: US periph venous low extrem rt (units unknown) (unknown) (unknown) (no date) (unknown) (unknown) Real-time imag ing, as well as color and pulse Doppler interrogation, were (units unknown) (unknown) (unknown) (no date) (unknown) (unknown) Signed (units unknown) (unknown) (unknown) (no date) (unknown) (unknown) TECHNIQUE: (units unknown) (unknown) (unknown) (no date) (unknown) (unknown) Ultrasound Report (u nits unknown) (unknown) (unknown) (no date) (unknown) (unknown) compressible, and (u nits unknown) (unknown) (unknown) (no date) (unknown) (unknown) fossa. (units unknown) (unknown) (unknown) (no date) (unknown) (unknown) free of intraluminal thrombus. Color and pulse Doppler demonstrate normal (units unknown) (unknown) (unknown) (no date) (unknown) (unknown) intraluminal f low. There is normal augmentation response to distal compression (units unknown) (unknown) (unknown) (no date) (unknown) (unknown) maneuver. (units unknown) (unknown) (unknown) (no date) (unknown) (unknown) performed of (units unknown) (unknown) (unknown) (no date) (unknown) (unknown) phasic (units unknown) (unknown) (unknown) (no date) (unknown) (unknown) the lower extr emity deep veins from the inguinal ligament to the popliteal (units unknown) (unknown) Result panel 104 (unknown) (no date) (unknown) (unknown) (no value) (units unknown) (unknown) (unknown) (no date) (unknown) (unknown) [id number] (units unknown) (unknown) (unknown) (no date) (unknown) (unknown) 02/20/23 (units unknown) (unknown) (unknown) (no date) (unknown) (unknown) [address] [place] [address] (un its unknown) (unknown) (unknown) (no date) (unknown) (unknown) Accession Numb er: [id number] (units unknown) (unknown) (unknown) (no date) (unknown) (unknown) Age/Sex: 37 / F Date of Service: (units unknown) (unknown) (unknown) (no date) (unknown) (unknown) Alignment and Curvature: There is normal bony alignment. (units unknown) (unknown) (unknown) (no date) (unknown) (unknown) [place] [address] (units unknown) (unknown) (unknown) (no date) (unknown) (unknown) Approved by: Brandon Davis M.D. on 02/21/2023 at 9:47 (units unknown) (unknown) (unknown) (no date) (unknown) (unknown) Bone Marrow: T here is T2 intermediate signal in the inferior endplate of L3 and (units unknown) (unknown) (unknown) (no date) (unknown) (unknown) COMPARISON: None. (u nits unknown) (unknown) (unknown) (no date) (unknown) (unknown) : 7 Acct:[id number] (units unknown) (unknown) (unknown) (no date) (unknown) (unknown) Dictated by: Brandon Davis M.D. on 02/21/2023 at 9:41 (units unknown) (unknown) (unknown) (no date) (unknown) (unknown) FINDINGS: (units unknown) (unknown) (unknown) (no date) (unknown) (unknown) IMPRESSION: (units unknown) (unknown) (unknown) (no date) (unknown) (unknown) INDICATIONS: Increasing (units unknown) (unknown) (unknown) (no date) (unknown) (unknown) Image quality: Excellent. (units unknown) (unknown) (unknown) (no date) (unknown) (unknown) [facility] (uni ts unknown) (unknown) (unknown) (no date) (unknown) (unknown) L1-L2: Normal appearance. (units unknown) (unknown) (unknown) (no date) (unknown) (unknown) L2-L3: Normal appearance. (units unknown) (unknown) (unknown) (no date) (unknown) (unknown) L3-4. (units unknown) (unknown) (unknown) (no date) (unknown) (unknown) L3-L4: Mild di sc height loss. Right subarticular disc extrusion resulting in (units unknown) (unknown) (unknown) (no date) (unknown) (unknown) L4-L5: Broad-b ased disc bulge. Annular fissure. (units unknown) (unknown) (unknown) (no date) (unknown) (unknown) L5-S1: Broad-b ased disc bulge. (units unknown) (unknown) (unknown) (no date) (unknown) (unknown) Loc: MRI (units unknown) (unknown) (unknown) (no date) (unknown) (unknown) Magnetic Reson ance Report (units unknown) (unknown) (unknown) (no date) (unknown) (unknown) Noncontrast sagittal T1 spin echo and T2 fast echo, sagittal STIR, and T2 fast (units unknown) (unknown) (unknown) (no date) (unknown) (unknown) Ordering Jasbir parveen: Terrell Cifuentes D.O. (units unknown) (unknown) (unknown) (no date) (unknown) (unknown) PROCEDURE: MR LUMBAR SPINE WO CON (units unknown) (unknown) (unknown) (no date) (unknown) (unknown) Paraspinous So ft Tissues: No paravertebral masses. (units unknown) (unknown) (unknown) (no date) (unknown) (unknown) Patient: Zoya James MR#: [id number] (units unknown) (unknown) (unknown) (no date) (unknown) (unknown) Procedure: MR lumbar spine wo con (units unknown) (unknown) (unknown) (no date) (unknown) (unknown) Right subartic ular disc extrusion resulting in severe spinal canal narrowing at (units unknown) (unknown) (unknown) (no date) (unknown) (unknown) Signed (units unknown) (unknown) (unknown) (no date) (unknown) (unknown) Spinal Cord: C onus medullaris terminates at the L1-2 level. Visualized cord (units unknown) (unknown) (unknown) (no date) (unknown) (unknown) T12-L1: Modera te disc height loss. (units unknown) (unknown) (unknown) (no date) (unknown) (unknown) TECHNIQUE: (units unknown) (unknown) (unknown) (no date) (unknown) (unknown) This contacts the right-sided exiting nerve at the L4-5 neural foramen. (units unknown) (unknown) (unknown) (no date) (unknown) (unknown) demonstrates n ormal signal and size. (units unknown) (unknown) (unknown) (no date) (unknown) (unknown) endplate of L4. (uni ts unknown) (unknown) (unknown) (no date) (unknown) (unknown) foramen. (units unknown) (unknown) (unknown) (no date) (unknown) (unknown) may be performed. (u nits unknown) (unknown) (unknown) (no date) (unknown) (unknown) neural (units unknown) (unknown) (unknown) (no date) (unknown) (unknown) severe (units unknown) (unknown) (unknown) (no date) (unknown) (unknown) spin echo (units unknown) (unknown) (unknown) (no date) (unknown) (unknown) spinal canal narrowing. This contacts the right-sided exiting nerve at the L4-5 (units unknown) (unknown) (unknown) (no date) (unknown) (unknown) superior (units unknown) (unknown) (unknown) (no date) (unknown) (unknown) through the [place] mbar spine. In cases with scoliosis, additional coronal T2 fast (units unknown) (unknown) Result panel 105 (unknown) (no date) (unknown) (unknown) (no value) (units unknown) (unknown) (unknown) (no date) (unknown) (unknown) (1) Annual phy sical exam: (units unknown) (unknown) (unknown) (no date) (unknown) (unknown) (2) Spinal stenosis, lumbar region with neurogenic claudication: (units unknown) (unknown) (unknown) (no date) (unknown) (unknown) (3) Fatigue: (units unknown) (unknown) (unknown) (no date) (unknown) (unknown) 03/15/23 (units unknown) (unknown) (unknown) (no date) (unknown) (unknown) 03/15/23] (units unknown) (unknown) (unknown) (no date) (unknown) (unknown) 2019 cleared i n 2020 who is here for annual exam. She is set for upcoming (units unknown) (unknown) (unknown) (no date) (unknown) (unknown) [id number] (units unknown) (unknown) (unknown) (no date) (unknown) (unknown) 6-12 months ap art), PPSV23 and Prevnar 13 (units unknown) (unknown) (unknown) (no date) (unknown) (unknown) [employer] screening- 67 yo M with smoking hx. Screen x1. (units unknown) (unknown) (unknown) (no date) (unknown) (unknown) Abnormal Pap s mear of cervix (-2019) (units unknown) (unknown) (unknown) (no date) (unknown) (unknown) Age/Sex: 37 / F Date of Service: (units unknown) (unknown) (unknown) (no date) (unknown) (unknown) All questions answered. Patient is in agreement with plan. (units unknown) (unknown) (unknown) (no date) (unknown) (unknown) Allergies (units unknown) (unknown) (unknown) (no date) (unknown) (unknown) Alopecia (units unknown) (unknown) (unknown) (no date) (unknown) (unknown) [place] [address] (units unknown) (unknown) (unknown) (no date) (unknown) (unknown) Anesthesia (units unknown) (unknown) (unknown) (no date) (unknown) (unknown) Anxiety/depres barbara screen- PHQ9 [ ] (units unknown) (unknown) (unknown) (no date) (unknown) (unknown) Appearance: (units unknown) (unknown) (unknown) (no date) (unknown) (unknown) Assessment + Plan (u nits unknown) (unknown) (unknown) (no date) (unknown) (unknown) Attending Dr: Franco Ray MD (units unknown) (unknown) (unknown) (no date) (unknown) (unknown) Auscultation: (units unknown) (unknown) (unknown) (no date) (unknown) (unknown) Bilateral hand pain (units unknown) (unknown) (unknown) (no date) (unknown) (unknown) Breast Cancer screening- mammogram last completed [ ] (units unknown) (unknown) (unknown) (no date) (unknown) (unknown) Cardio (units unknown) (unknown) (unknown) (no date) (unknown) (unknown) Carpal tunnel syndrome on both sides (units unknown) (unknown) (unknown) (no date) (unknown) (unknown) Cervical scree damien- pap smear is [ ] (units unknown) (unknown) (unknown) (no date) (unknown) (unknown) Chief Complaint (uni ts unknown) (unknown) (unknown) (no date) (unknown) (unknown) Chief Complain t: Annual exam (units unknown) (unknown) (unknown) (no date) (unknown) (unknown) Cognition: (units unknown) (unknown) (unknown) (no date) (unknown) (unknown) Colon Cancer screening- last colonoscopy was [ ] (units unknown) (unknown) (unknown) (no date) (unknown) (unknown) Confirmed 03/15/23] (units unknown) (unknown) (unknown) (no date) (unknown) (unknown) Const General: healthy appearing, pleasant (units unknown) (unknown) (unknown) (no date) (unknown) (unknown) : 7 Acct:[id number] (units unknown) (unknown) (unknown) (no date) (unknown) (unknown) Date of Last Menstrual Period: 03/15/23 (units unknown) (unknown) (unknown) (no date) (unknown) (unknown) Dept at . (units unknown) (unknown) (unknown) (no date) (unknown) (unknown) Zoya is a 37-year-old female with history of elevated BMI, abnormal Pap in (units unknown) (unknown) (unknown) (no date) (unknown) (unknown) Details: (units unknown) (unknown) (unknown) (no date) (unknown) (unknown) Diabetes mellitus (u nits unknown) (unknown) (unknown) (no date) (unknown) (unknown) Diabetes scree n- a1c ordered (units unknown) (unknown) (unknown) (no date) (unknown) (unknown) Difficulty Breathing (units unknown) (unknown) (unknown) (no date) (unknown) (unknown) Discussed diet and exercise. Discussed patient goals. Counseled patient on (units unknown) (unknown) (unknown) (no date) (unknown) (unknown) Documented By: Franco Ray MD 03/15/23 0931 (units unknown) (unknown) (unknown) (no date) (unknown) (unknown) Draft (units unknown) (unknown) (unknown) (no date) (unknown) (unknown) Drug use (units unknown) (unknown) (unknown) (no date) (unknown) (unknown) Effort + Inspection: (units unknown) (unknown) (unknown) (no date) (unknown) (unknown) Exam Narrative (unit s unknown) (unknown) (unknown) (no date) (unknown) (unknown) Exam Narrative: (uni ts unknown) (unknown) (unknown) (no date) (unknown) (unknown) Exam (units unknown) (unknown) (unknown) (no date) (unknown) (unknown) Extrem (units unknown) (unknown) (unknown) (no date) (unknown) (unknown) Family History (units unknown) (unknown) (unknown) (no date) (unknown) (unknown) Family Practic e Office Visit (units unknown) (unknown) (unknown) (no date) (unknown) (unknown) Father Diabete s mellitus (units unknown) (unknown) (unknown) (no date) (unknown) (unknown) Fatigue type: chronic, unspecified Qualified Code(s): R53.82 - Chronic (units unknown) (unknown) (unknown) (no date) (unknown) (unknown) Fatigue (units unknown) (unknown) (unknown) (no date) (unknown) (unknown) [facility] (units unknown) (unknown) (unknown) (no date) (unknown) (unknown) General: (units unknown) (unknown) (unknown) (no date) (unknown) (unknown) Grandfather Cancer ( units unknown) (unknown) (unknown) (no date) (unknown) (unknown) Grandfather Cancer (units unknown) (unknown) (unknown) (no date) (unknown) (unknown) Grandmother Cancer ( units unknown) (unknown) (unknown) (no date) (unknown) (unknown) Grandmother Stroke ( units unknown) (unknown) (unknown) (no date) (unknown) (unknown) Grossly normal appearance and ROM, normal gait (units unknown) (unknown) (unknown) (no date) (unknown) (unknown) HPI (units unknown) (unknown) (unknown) (no date) (unknown) (unknown) Health Managem ent reviewed with patient: Yes (units unknown) (unknown) (unknown) (no date) (unknown) (unknown) Health Management (u nits unknown) (unknown) (unknown) (no date) (unknown) (unknown) Heart Sounds: S1 normal and S2 normal (units unknown) (unknown) (unknown) (no date) (unknown) (unknown) Hepatitis C ab screening- one-time from [id number] (units unknown) (unknown) (unknown) (no date) (unknown) (unknown) Her for PAP an d pelvic. abnormal pap in 2019 And then normal in 2020. pt states (units unknown) (unknown) (unknown) (no date) (unknown) (unknown) History of appendectomy (units unknown) (unknown) (unknown) (no date) (unknown) (unknown) History of jaydon arean section (units unknown) (unknown) (unknown) (no date) (unknown) (unknown) History of hea rt disease (units unknown) (unknown) (unknown) (no date) (unknown) (unknown) Hyperlipidemia (unit s unknown) (unknown) (unknown) (no date) (unknown) (unknown) Hyperlipidemia - lipids ordered today (units unknown) (unknown) (unknown) (no date) (unknown) (unknown) Hypertension (units unknown) (unknown) (unknown) (no date) (unknown) (unknown) Immunizations- Recommended Annual Flu, Shingrix (50 and older, 2 dose series 2-6 (units unknown) (unknown) (unknown) (no date) (unknown) (unknown) Intake Note: (units unknown) (unknown) (unknown) (no date) (unknown) (unknown) Intake perform ed by: Michelle Garsia (units unknown) (unknown) (unknown) (no date) (unknown) (unknown) Intake (units unknown) (unknown) (unknown) (no date) (unknown) (unknown) Intake- Leo elaine Staff (units unknown) (unknown) (unknown) (no date) (unknown) (unknown) Is last menstr ual period known: Yes (units unknown) (unknown) (unknown) (no date) (unknown) (unknown) Last Menstural Cycle + Details (units unknown) (unknown) (unknown) (no date) (unknown) (unknown) Leg edema, right (un its unknown) (unknown) (unknown) (no date) (unknown) (unknown) Loc: [facility] (units unknown) (unknown) (unknown) (no date) (unknown) (unknown) Lung Cancer screening- low-dose chest CT from 55-80, annually. 30 pack year hx (units unknown) (unknown) (unknown) (no date) (unknown) (unknown) MULTIVITAMIN (Multivitamin -) ##0 03/22/10 [History Confirmed (units unknown) (unknown) (unknown) (no date) (unknown) (unknown) Medical Histor y (Updated 02/21/23 @ 17:31 by Terrell Cifuentes DO) (units unknown) (unknown) (unknown) (no date) (unknown) (unknown) Medications (units unknown) (unknown) (unknown) (no date) (unknown) (unknown) Neuro (units unknown) (unknown) (unknown) (no date) (unknown) (unknown) Obesity (units unknown) (unknown) (unknown) (no date) (unknown) (unknown) Orientation: a lert, awake and oriented x3 (units unknown) (unknown) (unknown) (no date) (unknown) (unknown) PFSH (units unknown) (unknown) (unknown) (no date) (unknown) (unknown) Patient: Zoya James MR#: [id number] (units unknown) (unknown) (unknown) (no date) (unknown) (unknown) Plan (units unknown) (unknown) (unknown) (no date) (unknown) (unknown) Psych (units unknown) (unknown) (unknown) (no date) (unknown) (unknown) Qualifiers: (units unknown) (unknown) (unknown) (no date) (unknown) (unknown) Rate: regular rate ( units unknown) (unknown) (unknown) (no date) (unknown) (unknown) Reason For Visit (un its unknown) (unknown) (unknown) (no date) (unknown) (unknown) Resp (units unknown) (unknown) (unknown) (no date) (unknown) (unknown) Rhythm: regula r rhythm (units unknown) (unknown) (unknown) (no date) (unknown) (unknown) Right leg numbness ( units unknown) (unknown) (unknown) (no date) (unknown) (unknown) Signed By: (units unknown) (unknown) (unknown) (no date) (unknown) (unknown) Smoking Status : Never smoker (units unknown) (unknown) (unknown) (no date) (unknown) (unknown) Spinal stenosi s, lumbar region with neurogenic claudication (units unknown) (unknown) (unknown) (no date) (unknown) (unknown) Status: Acute (units unknown) (unknown) (unknown) (no date) (unknown) (unknown) Sulfa (Sulfona mide Antibiotics) Adverse Reaction (Verified 03/15/23 09:33) (units unknown) (unknown) (unknown) (no date) (unknown) (unknown) Surgical Histo ry (units unknown) (unknown) (unknown) (no date) (unknown) (unknown) This note may have been all or partially generated using voice recognition (units unknown) (unknown) (unknown) (no date) (unknown) (unknown) Tobacco + Subs tance Use (units unknown) (unknown) (unknown) (no date) (unknown) (unknown) Tobacco Status (unit s unknown) (unknown) (unknown) (no date) (unknown) (unknown) Varicose vein of leg (units unknown) (unknown) (unknown) (no date) (unknown) (unknown) Visit Reasons: Preventive exam w/ pap (units unknown) (unknown) (unknown) (no date) (unknown) (unknown) Weakness of ri ght lower extremity (units unknown) (unknown) (unknown) (no date) (unknown) (unknown) [History Confi rmed 03/15/23] (units unknown) (unknown) (unknown) (no date) (unknown) (unknown) acetaminophen 500 mg tablet (Tylenol Extra Strength) 500 mg PO Q6H PRN 01/31/23 (units unknown) (unknown) (unknown) (no date) (unknown) (unknown) acyclovir Nilesh rgy (Verified 03/15/23 09:33) (units unknown) (unknown) (unknown) (no date) (unknown) (unknown) affect and nor mal thought content (units unknown) (unknown) (unknown) (no date) (unknown) (unknown) and less than 15 years since quit (units unknown) (unknown) (unknown) (no date) (unknown) (unknown) clear to auscultation bilaterally, no crackles, no rhonchi and no wheezes (units unknown) (unknown) (unknown) (no date) (unknown) (unknown) codeine Allerg y (Verified 03/15/23 09:33) (units unknown) (unknown) (unknown) (no date) (unknown) (unknown) cyclobenzaprin e 10 mg tablet 10 mg PO BID PRN muscle spasm #30 tabs 02/06/23 [Rx (units unknown) (unknown) (unknown) (no date) (unknown) (unknown) difficulty breathing (units unknown) (unknown) (unknown) (no date) (unknown) (unknown) fatigue, unspecified (units unknown) (unknown) (unknown) (no date) (unknown) (unknown) grossly normal , mental status grossly normal, speech and movement normal, normal (units unknown) (unknown) (unknown) (no date) (unknown) (unknown) have occurred. If there are any questions, please contact the Medical Records (units unknown) (unknown) (unknown) (no date) (unknown) (unknown) ibuprofen 200 mg tablet 600 mg PO BID PRN pain #60 tabs 02/06/23 [Rx Confirmed (units unknown) (unknown) (unknown) (no date) (unknown) (unknown) latex Allergy (Verified 03/15/23 09:33) (units unknown) (unknown) (unknown) (no date) (unknown) (unknown) may occur. Occasional wrong-word or 'sound-alike' substitutions may have (units unknown) (unknown) (unknown) (no date) (unknown) (unknown) months apart), Hepatitis B (diabetics), HPV (11-12 yo or up to 26, 2 dose series (units unknown) (unknown) (unknown) (no date) (unknown) (unknown) normal cognition (un its unknown) (unknown) (unknown) (no date) (unknown) (unknown) normal respira tory effort, able to speak in complete sentences and no (units unknown) (unknown) (unknown) (no date) (unknown) (unknown) occurred due t o the inherent limitations of voice recognition software. Please (units unknown) (unknown) (unknown) (no date) (unknown) (unknown) patient alert, awake, patient oriented x3 (units unknown) (unknown) (unknown) (no date) (unknown) (unknown) rash (units unknown) (unknown) (unknown) (no date) (unknown) (unknown) read the note carefully and recognize, using context, where these substitutions (units unknown) (unknown) (unknown) (no date) (unknown) (unknown) respiratory distress (units unknown) (unknown) (unknown) (no date) (unknown) (unknown) screening labs and studies, which are listed below: (units unknown) (unknown) (unknown) (no date) (unknown) (unknown) software. Alth ough every effort is made to edit content, pluck separator errors (units unknown) (unknown) (unknown) (no date) (unknown) (unknown) surgery due to disc herniation. She is currently on her menstrual cycle. (units unknown) (unknown) (unknown) (no date) (unknown) (unknown) that she is currently on her menstural cycle. (units unknown) (unknown) Result panel 106 (unknown) (no date) (unknown) (unknown) (no value) (units unknown) (unknown) (unknown) (no date) (unknown) (unknown) (1) Annual phy sical exam: (units unknown) (unknown) (unknown) (no date) (unknown) (unknown) (2) Spinal stenosis, lumbar region with neurogenic claudication: (units unknown) (unknown) (unknown) (no date) (unknown) (unknown) (3) Fatigue: (units unknown) (unknown) (unknown) (no date) (unknown) (unknown) 03/15/23 (units unknown) (unknown) (unknown) (no date) (unknown) (unknown) 03/15/23] (units unknown) (unknown) (unknown) (no date) (unknown) (unknown) 09:37 (units unknown) (unknown) (unknown) (no date) (unknown) (unknown) 2019 cleared i n 2020 who is here for annual exam. She is set for upcoming (units unknown) (unknown) (unknown) (no date) (unknown) (unknown) [id number] (units unknown) (unknown) (unknown) (no date) (unknown) (unknown) 6-12 months ap art), PPSV23 and Prevnar 13 (units unknown) (unknown) (unknown) (no date) (unknown) (unknown) AAA screening- 67 yo M with smoking hx. Screen x1. (units unknown) (unknown) (unknown) (no date) (unknown) (unknown) Abnormal Pap s mear of cervix () (units unknown) (unknown) (unknown) (no date) (unknown) (unknown) Age/Sex: 37 / F Date of Service: (units unknown) (unknown) (unknown) (no date) (unknown) (unknown) All questions answered. Patient is in agreement with plan. (units unknown) (unknown) (unknown) (no date) (unknown) (unknown) Allergies (units unknown) (unknown) (unknown) (no date) (unknown) (unknown) Alopecia (units unknown) (unknown) (unknown) (no date) (unknown) (unknown) [place] [id number] (units unknown) (unknown) (unknown) (no date) (unknown) (unknown) Anesthesia (units unknown) (unknown) (unknown) (no date) (unknown) (unknown) Anxiety/depres barbara screen- PHQ9 [ ] (units unknown) (unknown) (unknown) (no date) (unknown) (unknown) Appearance: (units unknown) (unknown) (unknown) (no date) (unknown) (unknown) Assessment + Plan (u nits unknown) (unknown) (unknown) (no date) (unknown) (unknown) Attending Dr: Franco Ray MD (units unknown) (unknown) (unknown) (no date) (unknown) (unknown) Auscultation: (units unknown) (unknown) (unknown) (no date) (unknown) (unknown) BMI 44.6 (units unknown) (unknown) (unknown) (no date) (unknown) (unknown) BP 116/74 (units unknown) (unknown) (unknown) (no date) (unknown) (unknown) Bilateral hand pain (units unknown) (unknown) (unknown) (no date) (unknown) (unknown) Breast Cancer screening- mammogram last completed [ ] (units unknown) (unknown) (unknown) (no date) (unknown) (unknown) Cardio (units unknown) (unknown) (unknown) (no date) (unknown) (unknown) Carpal tunnel syndrome on both sides (units unknown) (unknown) (unknown) (no date) (unknown) (unknown) Cervical scree damien- pap smear is [ ] (units unknown) (unknown) (unknown) (no date) (unknown) (unknown) Chief Complaint (uni ts unknown) (unknown) (unknown) (no date) (unknown) (unknown) Chief Complain t: Annual exam (units unknown) (unknown) (unknown) (no date) (unknown) (unknown) Cognition: (units unknown) (unknown) (unknown) (no date) (unknown) (unknown) Colon Cancer screening- last colonoscopy was [ ] (units unknown) (unknown) (unknown) (no date) (unknown) (unknown) Confirmed 03/15/23] (units unknown) (unknown) (unknown) (no date) (unknown) (unknown) Const General: healthy appearing, pleasant (units unknown) (unknown) (unknown) (no date) (unknown) (unknown) : 7 Acct:[id number] (units unknown) (unknown) (unknown) (no date) (unknown) (unknown) Date of Last Menstrual Period: 03/15/23 (units unknown) (unknown) (unknown) (no date) (unknown) (unknown) Dept at . (units unknown) (unknown) (unknown) (no date) (unknown) (unknown) Zoya is a 37-year-old female with history of elevated BMI, abnormal Pap in (units unknown) (unknown) (unknown) (no date) (unknown) (unknown) Details: (units unknown) (unknown) (unknown) (no date) (unknown) (unknown) Diabetes mellitus (u nits unknown) (unknown) (unknown) (no date) (unknown) (unknown) Diabetes scree n- a1c ordered (units unknown) (unknown) (unknown) (no date) (unknown) (unknown) Difficulty Breathing (units unknown) (unknown) (unknown) (no date) (unknown) (unknown) Discussed diet and exercise. Discussed patient goals. Counseled patient on (units unknown) (unknown) (unknown) (no date) (unknown) (unknown) Documented By: Franco Ray MD 03/15/23 0931 (units unknown) (unknown) (unknown) (no date) (unknown) (unknown) Draft (units unknown) (unknown) (unknown) (no date) (unknown) (unknown) Drug use (units unknown) (unknown) (unknown) (no date) (unknown) (unknown) Effort + Inspection: (units unknown) (unknown) (unknown) (no date) (unknown) (unknown) Exam Narrative (unit s unknown) (unknown) (unknown) (no date) (unknown) (unknown) Exam Narrative: (uni ts unknown) (unknown) (unknown) (no date) (unknown) (unknown) Exam (units unknown) (unknown) (unknown) (no date) (unknown) (unknown) Extrem (units unknown) (unknown) (unknown) (no date) (unknown) (unknown) Family History (units unknown) (unknown) (unknown) (no date) (unknown) (unknown) Family Practic e Office Visit (units unknown) (unknown) (unknown) (no date) (unknown) (unknown) Father Diabete s mellitus (units unknown) (unknown) (unknown) (no date) (unknown) (unknown) Fatigue type: chronic, unspecified Qualified Code(s): R53.82 - Chronic (units unknown) (unknown) (unknown) (no date) (unknown) (unknown) Fatigue (units unknown) (unknown) (unknown) (no date) (unknown) (unknown) [facility] (units unknown) (unknown) (unknown) (no date) (unknown) (unknown) General: (units unknown) (unknown) (unknown) (no date) (unknown) (unknown) Grandfather Cancer ( units unknown) (unknown) (unknown) (no date) (unknown) (unknown) Grandfather Cancer (units unknown) (unknown) (unknown) (no date) (unknown) (unknown) Grandmother Cancer ( units unknown) (unknown) (unknown) (no date) (unknown) (unknown) Grandmother Stroke ( units unknown) (unknown) (unknown) (no date) (unknown) (unknown) Grossly normal appearance and ROM, normal gait (units unknown) (unknown) (unknown) (no date) (unknown) (unknown) HPI (units unknown) (unknown) (unknown) (no date) (unknown) (unknown) Health Managem ent reviewed with patient: Yes (units unknown) (unknown) (unknown) (no date) (unknown) (unknown) Health Management (u nits unknown) (unknown) (unknown) (no date) (unknown) (unknown) Heart Sounds: S1 normal and S2 normal (units unknown) (unknown) (unknown) (no date) (unknown) (unknown) Height 5 ft 5 in (un its unknown) (unknown) (unknown) (no date) (unknown) (unknown) Hepatitis C ab screening- one-time from [id number] (units unknown) (unknown) (unknown) (no date) (unknown) (unknown) Her for PAP an d pelvic. abnormal pap in 2019 And then normal in 2020. pt states (units unknown) (unknown) (unknown) (no date) (unknown) (unknown) History of appendectomy (units unknown) (unknown) (unknown) (no date) (unknown) (unknown) History of jaydon arean section (units unknown) (unknown) (unknown) (no date) (unknown) (unknown) History of hea rt disease (units unknown) (unknown) (unknown) (no date) (unknown) (unknown) Hyperlipidemia (unit s unknown) (unknown) (unknown) (no date) (unknown) (unknown) Hyperlipidemia - lipids ordered today (units unknown) (unknown) (unknown) (no date) (unknown) (unknown) Hypertension (units unknown) (unknown) (unknown) (no date) (unknown) (unknown) Immunizations- Recommended Annual Flu, Shingrix (50 and older, 2 dose series 2-6 (units unknown) (unknown) (unknown) (no date) (unknown) (unknown) Intake Note: (units unknown) (unknown) (unknown) (no date) (unknown) (unknown) Intake perform ed by: Michelle Garsia (units unknown) (unknown) (unknown) (no date) (unknown) (unknown) Intake (units unknown) (unknown) (unknown) (no date) (unknown) (unknown) Intake- Leo elaine Staff (units unknown) (unknown) (unknown) (no date) (unknown) (unknown) Is last menstr ual period known: Yes (units unknown) (unknown) (unknown) (no date) (unknown) (unknown) Last Menstural Cycle + Details (units unknown) (unknown) (unknown) (no date) (unknown) (unknown) Leg edema, right (un its unknown) (unknown) (unknown) (no date) (unknown) (unknown) Loc: [facility] (units unknown) (unknown) (unknown) (no date) (unknown) (unknown) Lung Cancer screening- low-dose chest CT from 55-80, annually. 30 pack year hx (units unknown) (unknown) (unknown) (no date) (unknown) (unknown) MULTIVITAMIN (Multivitamin -) ##0 03/22/10 [History Confirmed (units unknown) (unknown) (unknown) (no date) (unknown) (unknown) Medical Histor y (Updated 02/21/23 @ 17:31 by Terrell Cifuentes DO) (units unknown) (unknown) (unknown) (no date) (unknown) (unknown) Medications (units unknown) (unknown) (unknown) (no date) (unknown) (unknown) Neuro (units unknown) (unknown) (unknown) (no date) (unknown) (unknown) Obesity (units unknown) (unknown) (unknown) (no date) (unknown) (unknown) Orientation: a lert, awake and oriented x3 (units unknown) (unknown) (unknown) (no date) (unknown) (unknown) PFSH (units unknown) (unknown) (unknown) (no date) (unknown) (unknown) Patient: Zoya James MR#: [id number] (units unknown) (unknown) (unknown) (no date) (unknown) (unknown) Plan (units unknown) (unknown) (unknown) (no date) (unknown) (unknown) Psych (units unknown) (unknown) (unknown) (no date) (unknown) (unknown) Pulse 81 (units unknown) (unknown) (unknown) (no date) (unknown) (unknown) Pulse Oximetry (%) 98 (units unknown) (unknown) (unknown) (no date) (unknown) (unknown) Qualifiers: (units unknown) (unknown) (unknown) (no date) (unknown) (unknown) Rate: regular rate ( units unknown) (unknown) (unknown) (no date) (unknown) (unknown) Reason For Visit (un its unknown) (unknown) (unknown) (no date) (unknown) (unknown) Resp (units unknown) (unknown) (unknown) (no date) (unknown) (unknown) Rhythm: regula r rhythm (units unknown) (unknown) (unknown) (no date) (unknown) (unknown) Right leg numbness ( units unknown) (unknown) (unknown) (no date) (unknown) (unknown) Signed By: (units unknown) (unknown) (unknown) (no date) (unknown) (unknown) Smoking Status : Never smoker (units unknown) (unknown) (unknown) (no date) (unknown) (unknown) Spinal stenosi s, lumbar region with neurogenic claudication (units unknown) (unknown) (unknown) (no date) (unknown) (unknown) Status: Acute (units unknown) (unknown) (unknown) (no date) (unknown) (unknown) Sulfa (Sulfona mide Antibiotics) Adverse Reaction (Verified 03/15/23 09:33) (units unknown) (unknown) (unknown) (no date) (unknown) (unknown) Surgical Histo ry (units unknown) (unknown) (unknown) (no date) (unknown) (unknown) This note may have been all or partially generated using voice recognition (units unknown) (unknown) (unknown) (no date) (unknown) (unknown) Tobacco + Subs tance Use (units unknown) (unknown) (unknown) (no date) (unknown) (unknown) Tobacco Status (unit s unknown) (unknown) (unknown) (no date) (unknown) (unknown) Varicose vein of leg (units unknown) (unknown) (unknown) (no date) (unknown) (unknown) Visit Reasons: Preventive exam w/ pap (units unknown) (unknown) (unknown) (no date) (unknown) (unknown) Vitals (units unknown) (unknown) (unknown) (no date) (unknown) (unknown) Weakness of ri ght lower extremity (units unknown) (unknown) (unknown) (no date) (unknown) (unknown) Weight 268 lb (units unknown) (unknown) (unknown) (no date) (unknown) (unknown) [History Confi rmed 03/15/23] (units unknown) (unknown) (unknown) (no date) (unknown) (unknown) acetaminophen 500 mg tablet (Tylenol Extra Strength) 500 mg PO Q6H PRN 01/31/23 (units unknown) (unknown) (unknown) (no date) (unknown) (unknown) acyclovir Nilesh rgy (Verified 03/15/23 09:33) (units unknown) (unknown) (unknown) (no date) (unknown) (unknown) affect and nor mal thought content (units unknown) (unknown) (unknown) (no date) (unknown) (unknown) and less than 15 years since quit (units unknown) (unknown) (unknown) (no date) (unknown) (unknown) clear to auscultation bilaterally, no crackles, no rhonchi and no wheezes (units unknown) (unknown) (unknown) (no date) (unknown) (unknown) codeine Allerg y (Verified 03/15/23 09:33) (units unknown) (unknown) (unknown) (no date) (unknown) (unknown) cyclobenzaprin e 10 mg tablet 10 mg PO BID PRN muscle spasm #30 tabs 02/06/23 [Rx (units unknown) (unknown) (unknown) (no date) (unknown) (unknown) difficulty breathing (units unknown) (unknown) (unknown) (no date) (unknown) (unknown) fatigue, unspecified (units unknown) (unknown) (unknown) (no date) (unknown) (unknown) grossly normal , mental status grossly normal, speech and movement normal, normal (units unknown) (unknown) (unknown) (no date) (unknown) (unknown) have occurred. If there are any questions, please contact the Medical Records (units unknown) (unknown) (unknown) (no date) (unknown) (unknown) ibuprofen 200 mg tablet 600 mg PO BID PRN pain #60 tabs 02/06/23 [Rx Confirmed (units unknown) (unknown) (unknown) (no date) (unknown) (unknown) latex Allergy (Verified 03/15/23 09:33) (units unknown) (unknown) (unknown) (no date) (unknown) (unknown) may occur. Occasional wrong-word or 'sound-alike' substitutions may have (units unknown) (unknown) (unknown) (no date) (unknown) (unknown) months apart), Hepatitis B (diabetics), HPV (11-12 yo or up to 26, 2 dose series (units unknown) (unknown) (unknown) (no date) (unknown) (unknown) normal cognition (un its unknown) (unknown) (unknown) (no date) (unknown) (unknown) normal respira tory effort, able to speak in complete sentences and no (units unknown) (unknown) (unknown) (no date) (unknown) (unknown) occurred due t o the inherent limitations of voice recognition software. Please (units unknown) (unknown) (unknown) (no date) (unknown) (unknown) patient alert, awake, patient oriented x3 (units unknown) (unknown) (unknown) (no date) (unknown) (unknown) rash (units unknown) (unknown) (unknown) (no date) (unknown) (unknown) read the note carefully and recognize, using context, where these substitutions (units unknown) (unknown) (unknown) (no date) (unknown) (unknown) respiratory distress (units unknown) (unknown) (unknown) (no date) (unknown) (unknown) screening labs and studies, which are listed below: (units unknown) (unknown) (unknown) (no date) (unknown) (unknown) software. Alth ough every effort is made to edit content, pluck separator errors (units unknown) (unknown) (unknown) (no date) (unknown) (unknown) surgery due to disc herniation. She is currently on her menstrual cycle. (units unknown) (unknown) (unknown) (no date) (unknown) (unknown) that she is currently on her menstural cycle. (units unknown) (unknown) Result panel 107 (unknown) (no date) (unknown) (unknown) (no value) (units unknown) (unknown) (unknown) (no date) (unknown) (unknown) (1) Annual phy sical exam: (units unknown) (unknown) (unknown) (no date) (unknown) (unknown) (2) Spinal stenosis, lumbar region with neurogenic claudication: (units unknown) (unknown) (unknown) (no date) (unknown) (unknown) (3) Fatigue: (units unknown) (unknown) (unknown) (no date) (unknown) (unknown) (4) Obesity: (units unknown) (unknown) (unknown) (no date) (unknown) (unknown) (5) Iron defic iency anemia: (units unknown) (unknown) (unknown) (no date) (unknown) (unknown) 03/15/23 0957 (units unknown) (unknown) (unknown) (no date) (unknown) (unknown) 03/15/23 (units unknown) (unknown) (unknown) (no date) (unknown) (unknown) 03/15/23] (units unknown) (unknown) (unknown) (no date) (unknown) (unknown) 09:37 (units unknown) (unknown) (unknown) (no date) (unknown) (unknown) 2019 cleared i n 2020 who is here for annual exam. She is set for upcoming (units unknown) (unknown) (unknown) (no date) (unknown) (unknown) [id number] (units unknown) (unknown) (unknown) (no date) (unknown) (unknown) Abnormal Pap s mear of cervix (-2018) (units unknown) (unknown) (unknown) (no date) (unknown) (unknown) Age/Sex: 37 / F Date of Service: (units unknown) (unknown) (unknown) (no date) (unknown) (unknown) All questions answered. Patient is in agreement with plan. (units unknown) (unknown) (unknown) (no date) (unknown) (unknown) Allergies (units unknown) (unknown) (unknown) (no date) (unknown) (unknown) Alopecia (units unknown) (unknown) (unknown) (no date) (unknown) (unknown) [place] [address] (units unknown) (unknown) (unknown) (no date) (unknown) (unknown) Anesthesia (units unknown) (unknown) (unknown) (no date) (unknown) (unknown) Anxiety/depres barbara screen- negative (units unknown) (unknown) (unknown) (no date) (unknown) (unknown) Appearance: (units unknown) (unknown) (unknown) (no date) (unknown) (unknown) Assessment + Plan (u nits unknown) (unknown) (unknown) (no date) (unknown) (unknown) Attending Dr: Franco Ray MD (units unknown) (unknown) (unknown) (no date) (unknown) (unknown) Auscultation: (units unknown) (unknown) (unknown) (no date) (unknown) (unknown) BMI 44.6 (units unknown) (unknown) (unknown) (no date) (unknown) (unknown) BP 116/74 (units unknown) (unknown) (unknown) (no date) (unknown) (unknown) Bilateral hand pain (units unknown) (unknown) (unknown) (no date) (unknown) (unknown) Breast Cancer screening- not due (units unknown) (unknown) (unknown) (no date) (unknown) (unknown) Cardio (units unknown) (unknown) (unknown) (no date) (unknown) (unknown) Carpal tunnel syndrome on both sides (units unknown) (unknown) (unknown) (no date) (unknown) (unknown) Cervical scree damien- pap smear is due, though she is on menstrual cycle and will (units unknown) (unknown) (unknown) (no date) (unknown) (unknown) Chief Complaint (uni ts unknown) (unknown) (unknown) (no date) (unknown) (unknown) Chief Complain t: Annual exam (units unknown) (unknown) (unknown) (no date) (unknown) (unknown) Code(s): D50.9 - Iron deficiency anemia, unspecified (units unknown) (unknown) (unknown) (no date) (unknown) (unknown) Cognition: (units unknown) (unknown) (unknown) (no date) (unknown) (unknown) Complete Blood Count AUTO DIFF 1 Week D50.9 - Iron deficiency anemia, (units unknown) (unknown) (unknown) (no date) (unknown) (unknown) Comprehensive Metabolic Panel 1 Week D50.9 - Iron deficiency anemia, (units unknown) (unknown) (unknown) (no date) (unknown) (unknown) Confirmed 03/15/23] (units unknown) (unknown) (unknown) (no date) (unknown) (unknown) Const General: healthy appearing, pleasant (units unknown) (unknown) (unknown) (no date) (unknown) (unknown) : 7 Acct:[id number] (units unknown) (unknown) (unknown) (no date) (unknown) (unknown) Date of Last Menstrual Period: 03/15/23 (units unknown) (unknown) (unknown) (no date) (unknown) (unknown) Dept at . (units unknown) (unknown) (unknown) (no date) (unknown) (unknown) Zoya is a 37-year-old female with history of elevated BMI, abnormal Pap in (units unknown) (unknown) (unknown) (no date) (unknown) (unknown) Details: (units unknown) (unknown) (unknown) (no date) (unknown) (unknown) Diabetes mellitus (u nits unknown) (unknown) (unknown) (no date) (unknown) (unknown) Diabetes scree n- ordered (units unknown) (unknown) (unknown) (no date) (unknown) (unknown) Difficulty Breathing (units unknown) (unknown) (unknown) (no date) (unknown) (unknown) Discussed diet and exercise. Discussed patient goals. Counseled patient on (units unknown) (unknown) (unknown) (no date) (unknown) (unknown) Documented By: Franco Ray MD 03/15/23 0931 (units unknown) (unknown) (unknown) (no date) (unknown) (unknown) Drug use (units unknown) (unknown) (unknown) (no date) (unknown) (unknown) E66.01 - Morbi d (severe) obesity due to excess calories; Z68.41 - Body mass (units unknown) (unknown) (unknown) (no date) (unknown) (unknown) Effort + Inspection: (units unknown) (unknown) (unknown) (no date) (unknown) (unknown) Exam Narrative (unit s unknown) (unknown) (unknown) (no date) (unknown) (unknown) Exam Narrative: (uni ts unknown) (unknown) (unknown) (no date) (unknown) (unknown) Exam (units unknown) (unknown) (unknown) (no date) (unknown) (unknown) Extrem (units unknown) (unknown) (unknown) (no date) (unknown) (unknown) Family History (units unknown) (unknown) (unknown) (no date) (unknown) (unknown) Family Practic e Office Visit (units unknown) (unknown) (unknown) (no date) (unknown) (unknown) Father Diabete s mellitus (units unknown) (unknown) (unknown) (no date) (unknown) (unknown) Fatigue type: chronic, unspecified Qualified Code(s): R53.82 - Chronic (units unknown) (unknown) (unknown) (no date) (unknown) (unknown) Fatigue (units unknown) (unknown) (unknown) (no date) (unknown) (unknown) Ferritin 1 Wee k D50.9 - Iron deficiency anemia, unspecified, E66.9 - Obesity, (units unknown) (unknown) (unknown) (no date) (unknown) (unknown) [facility] (units unknown) (unknown) (unknown) (no date) (unknown) (unknown) General: (units unknown) (unknown) (unknown) (no date) (unknown) (unknown) Grandfather Cancer ( units unknown) (unknown) (unknown) (no date) (unknown) (unknown) Grandfather Cancer (units unknown) (unknown) (unknown) (no date) (unknown) (unknown) Grandmother Cancer ( units unknown) (unknown) (unknown) (no date) (unknown) (unknown) Grandmother Stroke ( units unknown) (unknown) (unknown) (no date) (unknown) (unknown) Grossly normal appearance and ROM, normal gait (units unknown) (unknown) (unknown) (no date) (unknown) (unknown) HPI (units unknown) (unknown) (unknown) (no date) (unknown) (unknown) Health Managem ent reviewed with patient: Yes (units unknown) (unknown) (unknown) (no date) (unknown) (unknown) Health Management (u nits unknown) (unknown) (unknown) (no date) (unknown) (unknown) Heart Sounds: S1 normal and S2 normal (units unknown) (unknown) (unknown) (no date) (unknown) (unknown) Height 5 ft 5 in (un its unknown) (unknown) (unknown) (no date) (unknown) (unknown) Her for PAP an d pelvic. abnormal pap in 2019 And then normal in 2020. pt states (units unknown) (unknown) (unknown) (no date) (unknown) (unknown) History of appendectomy (units unknown) (unknown) (unknown) (no date) (unknown) (unknown) History of jaydon arean section (units unknown) (unknown) (unknown) (no date) (unknown) (unknown) History of hea rt disease (units unknown) (unknown) (unknown) (no date) (unknown) (unknown) Hyperlipidemia (unit s unknown) (unknown) (unknown) (no date) (unknown) (unknown) Hyperlipidemia -not due (units unknown) (unknown) (unknown) (no date) (unknown) (unknown) Hypertension (units unknown) (unknown) (unknown) (no date) (unknown) (unknown) Immunizations- Up to date (units unknown) (unknown) (unknown) (no date) (unknown) (unknown) Intake Note: (units unknown) (unknown) (unknown) (no date) (unknown) (unknown) Intake perform ed by: Michelle Garsia (units unknown) (unknown) (unknown) (no date) (unknown) (unknown) Intake (units unknown) (unknown) (unknown) (no date) (unknown) (unknown) Intake- Leo elaine Staff (units unknown) (unknown) (unknown) (no date) (unknown) (unknown) Iron Profile ( w/ % Saturation) 1 Week D50.9 - Iron deficiency anemia, (units unknown) (unknown) (unknown) (no date) (unknown) (unknown) Iron deficienc y anemia type: unspecified iron deficiency Qualified (units unknown) (unknown) (unknown) (no date) (unknown) (unknown) Is last menstr ual period known: Yes (units unknown) (unknown) (unknown) (no date) (unknown) (unknown) Last Menstural Cycle + Details (units unknown) (unknown) (unknown) (no date) (unknown) (unknown) Leg edema, right (un its unknown) (unknown) (unknown) (no date) (unknown) (unknown) Loc: [facility] (units unknown) (unknown) (unknown) (no date) (unknown) (unknown) MULTIVITAMIN (Multivitamin -) ##0 03/22/10 [History Confirmed (units unknown) (unknown) (unknown) (no date) (unknown) (unknown) Medical Histor y (Updated 02/21/23 @ 17:31 by Terrell Cifuentes DO) (units unknown) (unknown) (unknown) (no date) (unknown) (unknown) Medications (units unknown) (unknown) (unknown) (no date) (unknown) (unknown) Neuro (units unknown) (unknown) (unknown) (no date) (unknown) (unknown) Obesity type: unspecified obesity type Obesity classification: adult (units unknown) (unknown) (unknown) (no date) (unknown) (unknown) Obesity (units unknown) (unknown) (unknown) (no date) (unknown) (unknown) Orders (units unknown) (unknown) (unknown) (no date) (unknown) (unknown) Orders: (units unknown) (unknown) (unknown) (no date) (unknown) (unknown) Orientation: a lert, awake and oriented x3 (units unknown) (unknown) (unknown) (no date) (unknown) (unknown) PFSH (units unknown) (unknown) (unknown) (no date) (unknown) (unknown) Patient: Zoya James MR#: [id number] (units unknown) (unknown) (unknown) (no date) (unknown) (unknown) Plan (units unknown) (unknown) (unknown) (no date) (unknown) (unknown) Psych (units unknown) (unknown) (unknown) (no date) (unknown) (unknown) Pulse 81 (units unknown) (unknown) (unknown) (no date) (unknown) (unknown) Pulse Oximetry (%) 98 (units unknown) (unknown) (unknown) (no date) (unknown) (unknown) Qualifiers: (units unknown) (unknown) (unknown) (no date) (unknown) (unknown) Rate: regular rate ( units unknown) (unknown) (unknown) (no date) (unknown) (unknown) Reason For Visit (un its unknown) (unknown) (unknown) (no date) (unknown) (unknown) Resp (units unknown) (unknown) (unknown) (no date) (unknown) (unknown) Rhythm: regula r rhythm (units unknown) (unknown) (unknown) (no date) (unknown) (unknown) Right leg numbness ( units unknown) (unknown) (unknown) (no date) (unknown) (unknown) She is due for number screening labs that have been ordered. She also will (units unknown) (unknown) (unknown) (no date) (unknown) (unknown) Signed By: <Electronically signed by Franco Ray MD> (units unknown) (unknown) (unknown) (no date) (unknown) (unknown) Signed (units unknown) (unknown) (unknown) (no date) (unknown) (unknown) Smoking Status : Never smoker (units unknown) (unknown) (unknown) (no date) (unknown) (unknown) Spinal stenosi s, lumbar region with neurogenic claudication (units unknown) (unknown) (unknown) (no date) (unknown) (unknown) Status: Acute (units unknown) (unknown) (unknown) (no date) (unknown) (unknown) Sulfa (Sulfona mide Antibiotics) Adverse Reaction (Verified 03/15/23 09:33) (units unknown) (unknown) (unknown) (no date) (unknown) (unknown) Surgical Histo ry (units unknown) (unknown) (unknown) (no date) (unknown) (unknown) This note may have been all or partially generated using voice recognition (units unknown) (unknown) (unknown) (no date) (unknown) (unknown) Tobacco + Subs tance Use (units unknown) (unknown) (unknown) (no date) (unknown) (unknown) Tobacco Status (unit s unknown) (unknown) (unknown) (no date) (unknown) (unknown) Varicose vein of leg (units unknown) (unknown) (unknown) (no date) (unknown) (unknown) Visit Reasons: Preventive exam w/ pap (units unknown) (unknown) (unknown) (no date) (unknown) (unknown) Vitals (units unknown) (unknown) (unknown) (no date) (unknown) (unknown) Weakness of ri ght lower extremity (units unknown) (unknown) (unknown) (no date) (unknown) (unknown) Weight 268 lb (units unknown) (unknown) (unknown) (no date) (unknown) (unknown) [History Confi rmed 03/15/23] (units unknown) (unknown) (unknown) (no date) (unknown) (unknown) acetaminophen 500 mg tablet (Tylenol Extra Strength) 500 mg PO Q6H PRN 01/31/23 (units unknown) (unknown) (unknown) (no date) (unknown) (unknown) acyclovir Nilesh rgy (Verified 03/15/23 09:33) (units unknown) (unknown) (unknown) (no date) (unknown) (unknown) affect and nor mal thought content (units unknown) (unknown) (unknown) (no date) (unknown) (unknown) class 3 (BMI > = 40) Serious obesity comorbidity presence: unspecified whether (units unknown) (unknown) (unknown) (no date) (unknown) (unknown) claudication, R53.83 - Other fatigue (units unknown) (unknown) (unknown) (no date) (unknown) (unknown) clear to auscultation bilaterally, no crackles, no rhonchi and no wheezes (units unknown) (unknown) (unknown) (no date) (unknown) (unknown) codeine Allerg y (Verified 03/15/23 09:33) (units unknown) (unknown) (unknown) (no date) (unknown) (unknown) cyclobenzaprin e 10 mg tablet 10 mg PO BID PRN muscle spasm #30 tabs 02/06/23 [Rx (units unknown) (unknown) (unknown) (no date) (unknown) (unknown) difficulty breathing (units unknown) (unknown) (unknown) (no date) (unknown) (unknown) fatigue, unspecified (units unknown) (unknown) (unknown) (no date) (unknown) (unknown) grossly normal , mental status grossly normal, speech and movement normal, normal (units unknown) (unknown) (unknown) (no date) (unknown) (unknown) have occurred. If there are any questions, please contact the Medical Records (units unknown) (unknown) (unknown) (no date) (unknown) (unknown) ibuprofen 200 mg tablet 600 mg PO BID PRN pain #60 tabs 02/06/23 [Rx Confirmed (units unknown) (unknown) (unknown) (no date) (unknown) (unknown) index [BMI]40.0-44.9, adult (units unknown) (unknown) (unknown) (no date) (unknown) (unknown) latex Allergy (Verified 03/15/23 09:33) (units unknown) (unknown) (unknown) (no date) (unknown) (unknown) may occur. Occasional wrong-word or 'sound-alike' substitutions may have (units unknown) (unknown) (unknown) (no date) (unknown) (unknown) need to reschedule ( units unknown) (unknown) (unknown) (no date) (unknown) (unknown) normal cognition (un its unknown) (unknown) (unknown) (no date) (unknown) (unknown) normal respira tory effort, able to speak in complete sentences and no (units unknown) (unknown) (unknown) (no date) (unknown) (unknown) occurred due t o the inherent limitations of voice recognition software. Please (units unknown) (unknown) (unknown) (no date) (unknown) (unknown) patient alert, awake, patient oriented x3 (units unknown) (unknown) (unknown) (no date) (unknown) (unknown) proceed with upcoming surgery for laminectomy. (units unknown) (unknown) (unknown) (no date) (unknown) (unknown) rash (units unknown) (unknown) (unknown) (no date) (unknown) (unknown) read the note carefully and recognize, using context, where these substitutions (units unknown) (unknown) (unknown) (no date) (unknown) (unknown) region with neurogenic claudication, R53.83 - Other fatigue (units unknown) (unknown) (unknown) (no date) (unknown) (unknown) respiratory distress (units unknown) (unknown) (unknown) (no date) (unknown) (unknown) screening labs and studies, which are listed below: (units unknown) (unknown) (unknown) (no date) (unknown) (unknown) serious comorb idity present Body mass index: BMI 40.0-44.9 Qualified Code(s): (units unknown) (unknown) (unknown) (no date) (unknown) (unknown) software. Alth ough every effort is made to edit content, pluck separator errors (units unknown) (unknown) (unknown) (no date) (unknown) (unknown) surgery due to disc herniation. She is currently on her menstrual cycle. (units unknown) (unknown) (unknown) (no date) (unknown) (unknown) that she is currently on her menstural cycle. (units unknown) (unknown) (unknown) (no date) (unknown) (unknown) unspecified, E 66.9 - Obesity, unspecified, M48.062 - Spinal stenosis, lumbar (units unknown) (unknown) (unknown) (no date) (unknown) (unknown) unspecified, M48.062 - Spinal stenosis, lumbar region with neurogenic (units unknown) (unknown) Result panel 108 (unknown) (no date) (unknown) (unknown) 1.3 % (unknown ) (unknown) (no date) (unknown) (unknown) 100 /ul (unknown ) (unknown) (no date) (unknown) (unknown) 11.7 g/dl (unknown ) (unknown) (no date) (unknown) (unknown) 16.1 % (unknown ) (unknown) (no date) (unknown) (unknown) 2.2 % (unknown ) (unknown) (no date) (unknown) (unknown) 200 /ul (unknown ) (unknown) (no date) (unknown) (unknown) 26.2 pg (unknown ) (unknown) (no date) (unknown) (unknown) 2600 /ul (unknown ) (unknown) (no date) (unknown) (unknown) 28.5 % (unknown ) (unknown) (no date) (unknown) (unknown) 32.8 % (unknown ) (unknown) (no date) (unknown) (unknown) 323 x10 3/ul (unknow n) (unknown) (no date) (unknown) (unknown) 35.7 % (unknown ) (unknown) (no date) (unknown) (unknown) 4.47 x10 6/ul (unknow n) (unknown) (no date) (unknown) (unknown) 5600 /ul (unknown ) (unknown) (no date) (unknown) (unknown) 60.7 % (unknown ) (unknown) (no date) (unknown) (unknown) 7.3 % (unknown ) (unknown) (no date) (unknown) (unknown) 700 /ul (unknown ) (unknown) (no date) (unknown) (unknown) 79.9 fl (unknown ) (unknown) (no date) (unknown) (unknown) 9.3 x10 3/ul (unknow n) Result panel 109 (unknown) (no date) (unknown) (unknown) 59 ug/dl (unknown ) Result panel 110 (unknown) (no date) (unknown) (unknown) > 60 ml/min (unknown ) (unknown) (no date) (unknown) (unknown) > 60 ml/min (unknown ) (unknown) (no date) (unknown) (unknown) 0.2 mg/dl (unknown ) (unknown) (no date) (unknown) (unknown) 0.61 mg/dl (unknown ) (unknown) (no date) (unknown) (unknown) 1.4 (units unknown) (unknown) (unknown) (no date) (unknown) (unknown) 104 mmol/l (unknown ) (unknown) (no date) (unknown) (unknown) 13 mg/dl (unknown ) (unknown) (no date) (unknown) (unknown) 137 mmol/l (unknown ) (unknown) (no date) (unknown) (unknown) 21.3 (units unknown) (unknown) (unknown) (no date) (unknown) (unknown) 23 iu/l (unknown ) (unknown) (no date) (unknown) (unknown) 24 iu/l (unknown ) (unknown) (no date) (unknown) (unknown) 26 mmol/l (unknown ) (unknown) (no date) (unknown) (unknown) 3.0 g/dl (unknown ) (unknown) (no date) (unknown) (unknown) 4.0 mmol/l (unknown ) (unknown) (no date) (unknown) (unknown) 4.3 g/dl (unknown ) (unknown) (no date) (unknown) (unknown) 7.3 g/dl (unknown ) (unknown) (no date) (unknown) (unknown) 76 u/l (unknown ) (unknown) (no date) (unknown) (unknown) 8.6 mg/dl (unknown ) (unknown) (no date) (unknown) (unknown) 97 mg/dl (unknown ) (unknown) (no date) (unknown) (unknown) 97 mg/dl (unknown ) Result panel 111 (unknown) (no date) (unknown) (unknown) 12 % (unknown ) (unknown) (no date) (unknown) (unknown) 367 mg/dl (unknown ) (unknown) (no date) (unknown) (unknown) 489 ug/dl (unknown ) (unknown) (no date) (unknown) (unknown) 59 ug/dl (unknown ) Result panel 112 (unknown) (no date) (unknown) (unknown) > 60 ml/min (unknown ) (unknown) (no date) (unknown) (unknown) > 60 ml/min (unknown ) (unknown) (no date) (unknown) (unknown) 0.2 mg/dl (unknown ) (unknown) (no date) (unknown) (unknown) 0.61 mg/dl (unknown ) (unknown) (no date) (unknown) (unknown) 1.4 (units unknown) (unknown) (unknown) (no date) (unknown) (unknown) 104 mmol/l (unknown ) (unknown) (no date) (unknown) (unknown) 13 mg/dl (unknown ) (unknown) (no date) (unknown) (unknown) 137 mmol/l (unknown ) (unknown) (no date) (unknown) (unknown) 21.3 (units unknown) (unknown) (unknown) (no date) (unknown) (unknown) 23 iu/l (unknown ) (unknown) (no date) (unknown) (unknown) 24 iu/l (unknown ) (unknown) (no date) (unknown) (unknown) 26 mmol/l (unknown ) (unknown) (no date) (unknown) (unknown) 3.0 g/dl (unknown ) (unknown) (no date) (unknown) (unknown) 4.0 mmol/l (unknown ) (unknown) (no date) (unknown) (unknown) 4.3 g/dl (unknown ) (unknown) (no date) (unknown) (unknown) 7 ng/ml (unknown ) (unknown) (no date) (unknown) (unknown) 7.3 g/dl (unknown ) (unknown) (no date) (unknown) (unknown) 76 u/l (unknown ) (unknown) (no date) (unknown) (unknown) 8.6 mg/dl (unknown ) (unknown) (no date) (unknown) (unknown) 97 mg/dl (unknown ) (unknown) (no date) (unknown) (unknown) 97 mg/dl (unknown ) Result panel 113 (unknown) (no date) (unknown) (unknown) (no value) (units unknown) (unknown) (unknown) (no date) (unknown) (unknown) 03/26/23 0739 (units unknown) (unknown) (unknown) (no date) (unknown) (unknown) [id number] (units unknown) (unknown) (unknown) (no date) (unknown) (unknown) Age/Sex: 37 / F (uni ts unknown) (unknown) (unknown) (no date) (unknown) (unknown) COVID-19 (units unknown) (unknown) (unknown) (no date) (unknown) (unknown) Changes to H+P: No ( units unknown) (unknown) (unknown) (no date) (unknown) (unknown) Criteria for continued procedure: Expected advancement of disease process, (units unknown) (unknown) (unknown) (no date) (unknown) (unknown) : 7 Acct:[id number] (units unknown) (unknown) (unknown) (no date) (unknown) (unknown) Date of Servic e: 03/26/23 (units unknown) (unknown) (unknown) (no date) (unknown) (unknown) Deterioration of the patient's condition or overall health and [place] expected to (units unknown) (unknown) (unknown) (no date) (unknown) (unknown) History + Phys ical reviewed/Exam performed by Physician: Yes (units unknown) (unknown) (unknown) (no date) (unknown) (unknown) Interval Note (units unknown) (unknown) (unknown) (no date) (unknown) (unknown) [address] [address] (units unknown) (unknown) (unknown) (no date) (unknown) (unknown) Patient: Zoya James MR#: [id number] (units unknown) (unknown) (unknown) (no date) (unknown) (unknown) Possibility de lay results in more complex future surgery or treatment, Increased (units unknown) (unknown) (unknown) (no date) (unknown) (unknown) Pre-operative Note ( units unknown) (unknown) (unknown) (no date) (unknown) (unknown) Provider: Gold Stiles MD (units unknown) (unknown) (unknown) (no date) (unknown) (unknown) Signed By:<Electronically signed by Arnulfo Stiles MD> (units unknown) (unknown) (unknown) (no date) (unknown) (unknown) loss of functi on, Continuing or worsening of significant or severe pain, (units unknown) (unknown) (unknown) (no date) (unknown) (unknown) result in less-positive ultimate med/surg outcome (units unknown) (unknown) Result panel 114 (unknown) (no date) (unknown) (unknown) (no value) (units unknown) (unknown) (unknown) (no date) (unknown) (unknown) [id number] (units unknown) (unknown) (unknown) (no date) (unknown) (unknown) 03/26/23 (units unknown) (unknown) (unknown) (no date) (unknown) (unknown) [address] [place] [address] (un its unknown) (unknown) (unknown) (no date) (unknown) (unknown) Accession Numb er: [id number] (units unknown) (unknown) (unknown) (no date) (unknown) (unknown) Age/Sex: 37 / F Date of Service: (units unknown) (unknown) (unknown) (no date) (unknown) (unknown) [place] [id number] (units unknown) (unknown) (unknown) (no date) (unknown) (unknown) Approved by: Manoj Hanna M.D. on 03/26/2023 at 11:20 (units unknown) (unknown) (unknown) (no date) (unknown) (unknown) COMPARISON: [facility], , XR LUMBAR SPINE 2-3V, 01/31/2023, 15:24. (units unknown) (unknown) (unknown) (no date) (unknown) (unknown) : 7 Acct:[id number] (units unknown) (unknown) (unknown) (no date) (unknown) (unknown) Dictated by: Manoj Hanna M.D. on 03/26/2023 at 11:20 (units unknown) (unknown) (unknown) (no date) (unknown) (unknown) FINDINGS/IMPRE SSION : (units unknown) (unknown) (unknown) (no date) (unknown) (unknown) INDICATIONS: L 3-4 MICRODISECTOMY (units unknown) (unknown) (unknown) (no date) (unknown) (unknown) Intraoperative images were obtained for L3-L4 micro discectomy. Please see (units unknown) (unknown) (unknown) (no date) (unknown) (unknown) [facility] (uni ts unknown) (unknown) (unknown) (no date) (unknown) (unknown) Loc: OR (units unknown) (unknown) (unknown) (no date) (unknown) (unknown) Ordering Provi parveen: Arnulfo Stiles MD (units unknown) (unknown) (unknown) (no date) (unknown) (unknown) PROCEDURE: XR LUMBAR SPINE 2-3V (units unknown) (unknown) (unknown) (no date) (unknown) (unknown) Patient: Zoya James MR#: [id number] (units unknown) (unknown) (unknown) (no date) (unknown) (unknown) Procedure: XR lumbar spine 2-3V (units unknown) (unknown) (unknown) (no date) (unknown) (unknown) Signed (units unknown) (unknown) (unknown) (no date) (unknown) (unknown) TECHNIQUE: 2 v iews of the lumbar spine were acquired. (units unknown) (unknown) (unknown) (no date) (unknown) (unknown) XRay Report (units unknown) (unknown) (unknown) (no date) (unknown) (unknown) note for full details. (units unknown) (unknown) (unknown) (no date) (unknown) (unknown) operative (units unknown) (unknown) Result panel 115 (unknown) (no date) (unknown) (unknown) (no value) (units unknown) (unknown) (unknown) (no date) (unknown) (unknown) 03/26/23 0922 (units unknown) (unknown) (unknown) (no date) (unknown) (unknown) 1. L3-4 right microdiscectomy (units unknown) (unknown) (unknown) (no date) (unknown) (unknown) 2. L3-4 spinal stenosis (units unknown) (unknown) (unknown) (no date) (unknown) (unknown) 2. Utilization of microsurgical technique and operating microscope (units unknown) (unknown) (unknown) (no date) (unknown) (unknown) [id number] (units unknown) (unknown) (unknown) (no date) (unknown) (unknown) After the microdiskectomy was completed, the area medial lateral superior and (units unknown) (unknown) (unknown) (no date) (unknown) (unknown) Age/Sex: 37 / F (uni ts unknown) (unknown) (unknown) (no date) (unknown) (unknown) Anesthesia Typ e: General (units unknown) (unknown) (unknown) (no date) (unknown) (unknown) Buffet Manager: Fay Martinez (units unknown) (unknown) (unknown) (no date) (unknown) (unknown) Blood products transfused: none (units unknown) (unknown) (unknown) (no date) (unknown) (unknown) Click Yes if Unassisted: No (units unknown) (unknown) (unknown) (no date) (unknown) (unknown) Closure Type: primary (units unknown) (unknown) (unknown) (no date) (unknown) (unknown) Complications: none (units unknown) (unknown) (unknown) (no date) (unknown) (unknown) Condition: stable (u nits unknown) (unknown) (unknown) (no date) (unknown) (unknown) : 7 Acct:[id number] (units unknown) (unknown) (unknown) (no date) (unknown) (unknown) Date of Servic e: 03/26/23 (units unknown) (unknown) (unknown) (no date) (unknown) (unknown) Date of proced ure: 03/26/23 (units unknown) (unknown) (unknown) (no date) (unknown) (unknown) Discharge to home (u nits unknown) (unknown) (unknown) (no date) (unknown) (unknown) Disposition: PACU (u nits unknown) (unknown) (unknown) (no date) (unknown) (unknown) Estimated Bloo d Loss (mL): 5 (units unknown) (unknown) (unknown) (no date) (unknown) (unknown) Indications: (units unknown) (unknown) (unknown) (no date) (unknown) (unknown) [address] [address] (units unknown) (unknown) (unknown) (no date) (unknown) (unknown) Operative Date/Time/Diagnoses (units unknown) (unknown) (unknown) (no date) (unknown) (unknown) Operative Note (unit s unknown) (unknown) (unknown) (no date) (unknown) (unknown) Operative Notes (uni ts unknown) (unknown) (unknown) (no date) (unknown) (unknown) Patient failed multiple conservative management with worsening pain weakness and (units unknown) (unknown) (unknown) (no date) (unknown) (unknown) Patient has be en having chronic back pain and worsening lumbar radiculopathy. (units unknown) (unknown) (unknown) (no date) (unknown) (unknown) Patient tolera jennifer the procedure well. There were no complications. Patient was (units unknown) (unknown) (unknown) (no date) (unknown) (unknown) Patient was se en in the preoperative area. Risks and benefits of the surgery was (units unknown) (unknown) (unknown) (no date) (unknown) (unknown) Patient: Zoya James MR#: [id number] (units unknown) (unknown) (unknown) (no date) (unknown) (unknown) Plan for aftercare: (units unknown) (unknown) (unknown) (no date) (unknown) (unknown) Post-op diagno sis: same (units unknown) (unknown) (unknown) (no date) (unknown) (unknown) Post-operative (unit s unknown) (unknown) (unknown) (no date) (unknown) (unknown) Pre-op diagnos is: 1. L3-4 disc herniation (units unknown) (unknown) (unknown) (no date) (unknown) (unknown) Procedure + Clinicians (units unknown) (unknown) (unknown) (no date) (unknown) (unknown) Procedure in detail: (units unknown) (unknown) (unknown) (no date) (unknown) (unknown) Procedure: (units unknown) (unknown) (unknown) (no date) (unknown) (unknown) Provider: Gold Stiles MD (units unknown) (unknown) (unknown) (no date) (unknown) (unknown) Same procedure as scheduled: Yes (units unknown) (unknown) (unknown) (no date) (unknown) (unknown) Signed By:<Electronically signed by Arnulfo Stiles MD> (units unknown) (unknown) (unknown) (no date) (unknown) (unknown) Specimen(s): n one sent (units unknown) (unknown) (unknown) (no date) (unknown) (unknown) Surgeon: Arnulfo Stiles (u nits unknown) (unknown) (unknown) (no date) (unknown) (unknown) The wound was then irrigated with sterile normal saline. 40 mg Depo-Medrol was (units unknown) (unknown) (unknown) (no date) (unknown) (unknown) Time of proced ure: 07:40 (units unknown) (unknown) (unknown) (no date) (unknown) (unknown) Using AP and lateral C-arm imaging the interval between L3-4 was identified and (units unknown) (unknown) (unknown) (no date) (unknown) (unknown) activity of [employer]. After discussing risks benefits of treatment options, (units unknown) (unknown) (unknown) (no date) (unknown) (unknown) by incising th e annulus with #11 blade. Microcurettes and pituitary was used to (units unknown) (unknown) (unknown) (no date) (unknown) (unknown) discussed with the patient. Informed consent was obtained from the patient and (units unknown) (unknown) (unknown) (no date) (unknown) (unknown) given to the patient less than 30 min before the incision was made. Patient was (units unknown) (unknown) (unknown) (no date) (unknown) (unknown) inferior to th e area of the microdiskectomy was inspected and explored using a (units unknown) (unknown) (unknown) (no date) (unknown) (unknown) laminotomy. Th e disc space at L3-4 was identified. Microdiscectomy was performed (units unknown) (unknown) (unknown) (no date) (unknown) (unknown) marked on james ent's back. A 1 inch incision 1 in from midline was made on the (units unknown) (unknown) (unknown) (no date) (unknown) (unknown) micro curette. No other impinging structure was identified. (units unknown) (unknown) (unknown) (no date) (unknown) (unknown) microsurgical technique and operating microscope, a L3 laminotomy was performed (units unknown) (unknown) (unknown) (no date) (unknown) (unknown) numbness in he r lower extremity. Patient has been having difficulty performing (units unknown) (unknown) (unknown) (no date) (unknown) (unknown) operative room . General anesthesia was administered. Prophylactic antibiotic was (units unknown) (unknown) (unknown) (no date) (unknown) (unknown) patient electe d proceed with surgery. (units unknown) (unknown) (unknown) (no date) (unknown) (unknown) placed in the chart. Surgical site was marked. Patient was taken to the (units unknown) (unknown) (unknown) (no date) (unknown) (unknown) placed into a prone position on the Britton table. Patient's back was then (units unknown) (unknown) (unknown) (no date) (unknown) (unknown) placed into th e epidural space. The deep fascia was closed with 1-0 Vicryl. The (units unknown) (unknown) (unknown) (no date) (unknown) (unknown) prepped and dr aped in the sterile fashion. Time-out was performed at this time. (units unknown) (unknown) (unknown) (no date) (unknown) (unknown) removed hernia jennifer disc fragments of disc from the epidural space. (units unknown) (unknown) (unknown) (no date) (unknown) (unknown) retractors was placed inside the incision and docked onto the L3 lamina. Using (units unknown) (unknown) (unknown) (no date) (unknown) (unknown) right side. Th e fascia was incised in line with skin incision. Globus MARS (units unknown) (unknown) (unknown) (no date) (unknown) (unknown) suzanne. (units unknown) (unknown) (unknown) (no date) (unknown) (unknown) subcutaneous t issue was closed with 2-0 Vicryl. The skin was closed with skin (units unknown) (unknown) (unknown) (no date) (unknown) (unknown) transferred recovery room in stable condition. (units unknown) (unknown) (unknown) (no date) (unknown) (unknown) using a Kerris on rongeur. Liagamentum flavum was resected at the site of the (units unknown) (unknown) Result panel 116 (unknown) (no date) (unknown) (unknown) (no value) (units unknown) (unknown) (unknown) (no date) (unknown) (unknown) ADDENDUM (units unknown) (unknown) (unknown) (no date) (unknown) (unknown) 03/26/23 0922 (units unknown) (unknown) (unknown) (no date) (unknown) (unknown) 03/28/23 1557 (units unknown) (unknown) (unknown) (no date) (unknown) (unknown) 1. L3-4 right microdiscectomy (units unknown) (unknown) (unknown) (no date) (unknown) (unknown) 2. L3-4 spinal stenosis (units unknown) (unknown) (unknown) (no date) (unknown) (unknown) 2. Utilization of microsurgical technique and operating microscope (units unknown) (unknown) (unknown) (no date) (unknown) (unknown) [id number] (units unknown) (unknown) (unknown) (no date) (unknown) (unknown) Addendum Docum ented By: Arnulfo Stiles MD (units unknown) (unknown) (unknown) (no date) (unknown) (unknown) Addendum Mellissa d By: <Electronically signed by Arnulfo Stiles MD> (units unknown) (unknown) (unknown) (no date) (unknown) (unknown) After the microdiskectomy was completed, the area medial lateral superior and (units unknown) (unknown) (unknown) (no date) (unknown) (unknown) Age/Sex: 37 / F (uni ts unknown) (unknown) (unknown) (no date) (unknown) (unknown) Anesthesia Typ e: General (units unknown) (unknown) (unknown) (no date) (unknown) (unknown) Buffet Manager: Fay Martinez (units unknown) (unknown) (unknown) (no date) (unknown) (unknown) Blood products transfused: none (units unknown) (unknown) (unknown) (no date) (unknown) (unknown) Click Yes if Unassisted: No (units unknown) (unknown) (unknown) (no date) (unknown) (unknown) Closure Type: primary (units unknown) (unknown) (unknown) (no date) (unknown) (unknown) Complications: none (units unknown) (unknown) (unknown) (no date) (unknown) (unknown) Condition: stable (u nits unknown) (unknown) (unknown) (no date) (unknown) (unknown) : 7 Acct:[id number] (units unknown) (unknown) (unknown) (no date) (unknown) (unknown) Date of Servic e: 03/26/23 (units unknown) (unknown) (unknown) (no date) (unknown) (unknown) Date of proced ure: 03/26/23 (units unknown) (unknown) (unknown) (no date) (unknown) (unknown) Discharge to home (u nits unknown) (unknown) (unknown) (no date) (unknown) (unknown) Disposition: PACU (u nits unknown) (unknown) (unknown) (no date) (unknown) (unknown) Estimated Bloo d Loss (mL): 5 (units unknown) (unknown) (unknown) (no date) (unknown) (unknown) Indications: (units unknown) (unknown) (unknown) (no date) (unknown) (unknown) [address] [address] (units unknown) (unknown) (unknown) (no date) (unknown) (unknown) Operative Date/Time/Diagnoses (units unknown) (unknown) (unknown) (no date) (unknown) (unknown) Operative Note (unit s unknown) (unknown) (unknown) (no date) (unknown) (unknown) Operative Notes (uni ts unknown) (unknown) (unknown) (no date) (unknown) (unknown) Patient failed multiple conservative management with worsening pain weakness and (units unknown) (unknown) (unknown) (no date) (unknown) (unknown) Patient has be en having chronic back pain and worsening lumbar radiculopathy. (units unknown) (unknown) (unknown) (no date) (unknown) (unknown) Patient tolera jennifer the procedure well. There were no complications. Patient was (units unknown) (unknown) (unknown) (no date) (unknown) (unknown) Patient was se en in the preoperative area. Risks and benefits of the surgery was (units unknown) (unknown) (unknown) (no date) (unknown) (unknown) Patient: Zoya James MR#: [id number] (units unknown) (unknown) (unknown) (no date) (unknown) (unknown) Plan for aftercare: (units unknown) (unknown) (unknown) (no date) (unknown) (unknown) Post-op diagno sis: same (units unknown) (unknown) (unknown) (no date) (unknown) (unknown) Post-operative (unit s unknown) (unknown) (unknown) (no date) (unknown) (unknown) Pre-op diagnos is: 1. L3-4 disc herniation (units unknown) (unknown) (unknown) (no date) (unknown) (unknown) Procedure + Clinicians (units unknown) (unknown) (unknown) (no date) (unknown) (unknown) Procedure in detail: (units unknown) (unknown) (unknown) (no date) (unknown) (unknown) Procedure: (units unknown) (unknown) (unknown) (no date) (unknown) (unknown) Provider: Gold Stiles MD (units unknown) (unknown) (unknown) (no date) (unknown) (unknown) Same procedure as scheduled: Yes (units unknown) (unknown) (unknown) (no date) (unknown) (unknown) Signed By:<Electronically signed by Arnulfo Stiles MD> (units unknown) (unknown) (unknown) (no date) (unknown) (unknown) Specimen(s): n one sent (units unknown) (unknown) (unknown) (no date) (unknown) (unknown) Surgeon: Arnulfo Stiles (maryann torres unknown) (unknown) (unknown) (no date) (unknown) (unknown) The Operation could not have been safely performed without compromising the (units unknown) (unknown) (unknown) (no date) (unknown) (unknown) The wound was then irrigated with sterile normal saline. 40 mg Depo-Medrol was (units unknown) (unknown) (unknown) (no date) (unknown) (unknown) Time of proced ure: 07:40 (units unknown) (unknown) (unknown) (no date) (unknown) (unknown) Using AP and lateral C-arm imaging the interval between L3-4 was identified and (units unknown) (unknown) (unknown) (no date) (unknown) (unknown) activity of [employer]. After discussing risks benefits of treatment options, (units unknown) (unknown) (unknown) (no date) (unknown) (unknown) by incising th e annulus with #11 blade. Microcurettes and pituitary was used to (units unknown) (unknown) (unknown) (no date) (unknown) (unknown) discussed with the patient. Informed consent was obtained from the patient and (units unknown) (unknown) (unknown) (no date) (unknown) (unknown) given to the patient less than 30 min before the incision was made. Patient was (units unknown) (unknown) (unknown) (no date) (unknown) (unknown) inferior to th e area of the microdiskectomy was inspected and explored using a (units unknown) (unknown) (unknown) (no date) (unknown) (unknown) laminotomy. Th e disc space at L3-4 was identified. Microdiscectomy was performed (units unknown) (unknown) (unknown) (no date) (unknown) (unknown) marked on james ent's back. A 1 inch incision 1 in from midline was made on the (units unknown) (unknown) (unknown) (no date) (unknown) (unknown) micro curette. No other impinging structure was identified. (units unknown) (unknown) (unknown) (no date) (unknown) (unknown) microsurgical technique and operating microscope, a L3 laminotomy was performed (units unknown) (unknown) (unknown) (no date) (unknown) (unknown) numbness in he r lower extremity. Patient has been having difficulty performing (units unknown) (unknown) (unknown) (no date) (unknown) (unknown) operative room . General anesthesia was administered. Prophylactic antibiotic was (units unknown) (unknown) (unknown) (no date) (unknown) (unknown) patient electe d proceed with surgery. (units unknown) (unknown) (unknown) (no date) (unknown) (unknown) placed in the chart. Surgical site was marked. Patient was taken to the (units unknown) (unknown) (unknown) (no date) (unknown) (unknown) placed into a prone position on the Britton table. Patient's back was then (units unknown) (unknown) (unknown) (no date) (unknown) (unknown) placed into th e epidural space. The deep fascia was closed with 1-0 Vicryl. The (units unknown) (unknown) (unknown) (no date) (unknown) (unknown) positioning, retraction and manipulation of instruments, proper exposure, (units unknown) (unknown) (unknown) (no date) (unknown) (unknown) prepped and dr devorahed in the sterile fashion. Time-out was performed at this time. (units unknown) (unknown) (unknown) (no date) (unknown) (unknown) removed hernia jennifer disc fragments of disc from the epidural space. (units unknown) (unknown) (unknown) (no date) (unknown) (unknown) retractors was placed inside the incision and docked onto the L3 lamina. Using (units unknown) (unknown) (unknown) (no date) (unknown) (unknown) right side. Th e fascia was incised in line with skin incision. Globus MARS (units unknown) (unknown) (unknown) (no date) (unknown) (unknown) suzanne. (units unknown) (unknown) (unknown) (no date) (unknown) (unknown) subcutaneous t issue was closed with 2-0 Vicryl. The skin was closed with skin (units unknown) (unknown) (unknown) (no date) (unknown) (unknown) surgical pablo tant. The surgical scrub tech was medically necessary for proper (units unknown) (unknown) (unknown) (no date) (unknown) (unknown) surgical preparation, and manipulation of tissue. (units unknown) (unknown) (unknown) (no date) (unknown) (unknown) technical resu lt or length of the procedure, without the assistance of a skilled (units unknown) (unknown) (unknown) (no date) (unknown) (unknown) transferred recovery room in stable condition. (units unknown) (unknown) (unknown) (no date) (unknown) (unknown) using a Kerris on rongeur. Liagamentum flavum was resected at the site of the (units unknown) (unknown) Result panel 117 (unknown) (no date) (unknown) (unknown) (no value) (units unknown) (unknown) (unknown) (no date) (unknown) (unknown) 04/13/23 (units unknown) (unknown) (unknown) (no date) (unknown) (unknown) [id number] (units unknown) (unknown) (unknown) (no date) (unknown) (unknown) Abnormal Pap s mear of cervix () (units unknown) (unknown) (unknown) (no date) (unknown) (unknown) Age/Sex: 37 / F Date of Service: (units unknown) (unknown) (unknown) (no date) (unknown) (unknown) Allergies (units unknown) (unknown) (unknown) (no date) (unknown) (unknown) Alopecia (units unknown) (unknown) (unknown) (no date) (unknown) (unknown) [place] [address] (units unknown) (unknown) (unknown) (no date) (unknown) (unknown) Anesthesia (units unknown) (unknown) (unknown) (no date) (unknown) (unknown) Attending Dr: Franco Ray MD (units unknown) (unknown) (unknown) (no date) (unknown) (unknown) Bilateral hand pain (units unknown) (unknown) (unknown) (no date) (unknown) (unknown) Carpal tunnel syndrome on both sides (units unknown) (unknown) (unknown) (no date) (unknown) (unknown) : 7 Acct:[id number] (units unknown) (unknown) (unknown) (no date) (unknown) (unknown) Dept at . (units unknown) (unknown) (unknown) (no date) (unknown) (unknown) Diabetes mellitus (u nits unknown) (unknown) (unknown) (no date) (unknown) (unknown) Difficulty Breathing (units unknown) (unknown) (unknown) (no date) (unknown) (unknown) Documented By: Franco Ray MD 04/13/23 0756 (units unknown) (unknown) (unknown) (no date) (unknown) (unknown) Draft (units unknown) (unknown) (unknown) (no date) (unknown) (unknown) Drug use (units unknown) (unknown) (unknown) (no date) (unknown) (unknown) Family History (units unknown) (unknown) (unknown) (no date) (unknown) (unknown) Family Practic e Office Visit (units unknown) (unknown) (unknown) (no date) (unknown) (unknown) Father Diabete s mellitus (units unknown) (unknown) (unknown) (no date) (unknown) (unknown) Fatigue (units unknown) (unknown) (unknown) (no date) (unknown) (unknown) [facility] (units unknown) (unknown) (unknown) (no date) (unknown) (unknown) Grandfather Cancer ( units unknown) (unknown) (unknown) (no date) (unknown) (unknown) Grandfather Cancer (units unknown) (unknown) (unknown) (no date) (unknown) (unknown) Grandmother Cancer ( units unknown) (unknown) (unknown) (no date) (unknown) (unknown) Grandmother Stroke ( units unknown) (unknown) (unknown) (no date) (unknown) (unknown) History of appendectomy (units unknown) (unknown) (unknown) (no date) (unknown) (unknown) History of jaydon arean section (units unknown) (unknown) (unknown) (no date) (unknown) (unknown) History of hea rt disease (units unknown) (unknown) (unknown) (no date) (unknown) (unknown) Hyperlipidemia (unit s unknown) (unknown) (unknown) (no date) (unknown) (unknown) Hypertension (units unknown) (unknown) (unknown) (no date) (unknown) (unknown) Intake perform ed by: Delores Rice (units unknown) (unknown) (unknown) (no date) (unknown) (unknown) Intake (units unknown) (unknown) (unknown) (no date) (unknown) (unknown) Intake- Leo elaine Staff (units unknown) (unknown) (unknown) (no date) (unknown) (unknown) Leg edema, right (un its unknown) (unknown) (unknown) (no date) (unknown) (unknown) Loc: [facility] (units unknown) (unknown) (unknown) (no date) (unknown) (unknown) Medical Histor y (Updated 02/21/23 @ 17:31 by Terrell Cifuentes DO) (units unknown) (unknown) (unknown) (no date) (unknown) (unknown) Obesity (units unknown) (unknown) (unknown) (no date) (unknown) (unknown) PFSH (units unknown) (unknown) (unknown) (no date) (unknown) (unknown) Patient: Zoya James MR#: [id number] (units unknown) (unknown) (unknown) (no date) (unknown) (unknown) Reason For Visit (un its unknown) (unknown) (unknown) (no date) (unknown) (unknown) Right leg numbness ( units unknown) (unknown) (unknown) (no date) (unknown) (unknown) Signed By: (units unknown) (unknown) (unknown) (no date) (unknown) (unknown) Smoking Status : Never smoker (units unknown) (unknown) (unknown) (no date) (unknown) (unknown) Social History (unit s unknown) (unknown) (unknown) (no date) (unknown) (unknown) Spinal stenosi s, lumbar region with neurogenic claudication (units unknown) (unknown) (unknown) (no date) (unknown) (unknown) Sulfa (Sulfona mide Antibiotics) Adverse Reaction (Verified 03/15/23 09:33) (units unknown) (unknown) (unknown) (no date) (unknown) (unknown) Surgical Histo ry (units unknown) (unknown) (unknown) (no date) (unknown) (unknown) This note may have been all or partially generated using voice recognition (units unknown) (unknown) (unknown) (no date) (unknown) (unknown) Tobacco + Subs tance Use (units unknown) (unknown) (unknown) (no date) (unknown) (unknown) Tobacco Status (unit s unknown) (unknown) (unknown) (no date) (unknown) (unknown) Varicose vein of leg (units unknown) (unknown) (unknown) (no date) (unknown) (unknown) Visit Reasons: depression (units unknown) (unknown) (unknown) (no date) (unknown) (unknown) Weakness of ri ght lower extremity (units unknown) (unknown) (unknown) (no date) (unknown) (unknown) acyclovir Nilesh rgy (Verified 03/15/23 09:33) (units unknown) (unknown) (unknown) (no date) (unknown) (unknown) alcohol intake : current (units unknown) (unknown) (unknown) (no date) (unknown) (unknown) codeine Allerg y (Verified 03/15/23 09:33) (units unknown) (unknown) (unknown) (no date) (unknown) (unknown) difficulty breathing (units unknown) (unknown) (unknown) (no date) (unknown) (unknown) have occurred. If there are any questions, please contact the Medical Records (units unknown) (unknown) (unknown) (no date) (unknown) (unknown) household memb ers: children (units unknown) (unknown) (unknown) (no date) (unknown) (unknown) hydrocodone Al lergy (Verified 03/26/23 07:04) (units unknown) (unknown) (unknown) (no date) (unknown) (unknown) latex Allergy (Verified 03/15/23 09:33) (units unknown) (unknown) (unknown) (no date) (unknown) (unknown) may occur. Occasional wrong-word or 'sound-alike' substitutions may have (units unknown) (unknown) (unknown) (no date) (unknown) (unknown) occurred due t o the inherent limitations of voice recognition software. Please (units unknown) (unknown) (unknown) (no date) (unknown) (unknown) oxycodone Nilesh rgy (Verified 03/26/23 07:04) (units unknown) (unknown) (unknown) (no date) (unknown) (unknown) rash (units unknown) (unknown) (unknown) (no date) (unknown) (unknown) read the note carefully and recognize, using context, where these substitutions (units unknown) (unknown) (unknown) (no date) (unknown) (unknown) software. Alth ough every effort is made to edit content, pluck separator errors (units unknown) (unknown) Result panel 118 (unknown) (no date) (unknown) (unknown) (no value) (units unknown) (unknown) (unknown) (no date) (unknown) (unknown) (1) Spinal stenosis, lumbar region with neurogenic claudication: (units unknown) (unknown) (unknown) (no date) (unknown) (unknown) (2) Fatigue: (units unknown) (unknown) (unknown) (no date) (unknown) (unknown) (3) Obesity: (units unknown) (unknown) (unknown) (no date) (unknown) (unknown) (4) Iron defic iency anemia: (units unknown) (unknown) (unknown) (no date) (unknown) (unknown) (BMI >= 40) Ob esity type: unspecified obesity type Serious obesity comorbidity (units unknown) (unknown) (unknown) (no date) (unknown) (unknown) (Scale Score 4 -6) 01/31/23 [History Confirmed 04/13/23] (units unknown) (unknown) (unknown) (no date) (unknown) (unknown) 04/13/23 (units unknown) (unknown) (unknown) (no date) (unknown) (unknown) 04/13/23] (units unknown) (unknown) (unknown) (no date) (unknown) (unknown) 08:03 (units unknown) (unknown) (unknown) (no date) (unknown) (unknown) 2019 cleared i n 2020 who is here for back surgery follow up and life stressors. (units unknown) (unknown) (unknown) (no date) (unknown) (unknown) [id number] (units unknown) (unknown) (unknown) (no date) (unknown) (unknown) Abnormal Pap s mear of cervix (-2018) (units unknown) (unknown) (unknown) (no date) (unknown) (unknown) Age/Sex: 37 / F Date of Service: (units unknown) (unknown) (unknown) (no date) (unknown) (unknown) All questions answered. Patient is in agreement with plan. (units unknown) (unknown) (unknown) (no date) (unknown) (unknown) Allergies (units unknown) (unknown) (unknown) (no date) (unknown) (unknown) Alopecia (units unknown) (unknown) (unknown) (no date) (unknown) (unknown) [place] [address] (units unknown) (unknown) (unknown) (no date) (unknown) (unknown) Anesthesia (units unknown) (unknown) (unknown) (no date) (unknown) (unknown) Anxiety/depres barbara screen- negative (units unknown) (unknown) (unknown) (no date) (unknown) (unknown) Appearance: (units unknown) (unknown) (unknown) (no date) (unknown) (unknown) Assessment + Plan (u nits unknown) (unknown) (unknown) (no date) (unknown) (unknown) Attending Dr: Franco Ray MD (units unknown) (unknown) (unknown) (no date) (unknown) (unknown) BMI 41.2 (units unknown) (unknown) (unknown) (no date) (unknown) (unknown) BP 126/70 (units unknown) (unknown) (unknown) (no date) (unknown) (unknown) Bilateral hand pain (units unknown) (unknown) (unknown) (no date) (unknown) (unknown) Blood Pressure Location Lt brachial (units unknown) (unknown) (unknown) (no date) (unknown) (unknown) Body mass inde x: BMI 40.0-44.9 Obesity classification: adult class 3 (units unknown) (unknown) (unknown) (no date) (unknown) (unknown) Breast Cancer screening- not due (units unknown) (unknown) (unknown) (no date) (unknown) (unknown) Carpal tunnel syndrome on both sides (units unknown) (unknown) (unknown) (no date) (unknown) (unknown) Cervical scree damien- pap smear is due, though she is on menstrual cycle and will (units unknown) (unknown) (unknown) (no date) (unknown) (unknown) Chief Complaint (uni ts unknown) (unknown) (unknown) (no date) (unknown) (unknown) Chief Complain t: Follow up back surgery and life stressors (units unknown) (unknown) (unknown) (no date) (unknown) (unknown) Cognition: (units unknown) (unknown) (unknown) (no date) (unknown) (unknown) Confirmed 04/13/23] (units unknown) (unknown) (unknown) (no date) (unknown) (unknown) Const General: healthy appearing, pleasant (units unknown) (unknown) (unknown) (no date) (unknown) (unknown) : 7 Acct:[id number] (units unknown) (unknown) (unknown) (no date) (unknown) (unknown) Dept at . (units unknown) (unknown) (unknown) (no date) (unknown) (unknown) Zoya is a 37-year-old female with history of elevated BMI, abnormal Pap in (units unknown) (unknown) (unknown) (no date) (unknown) (unknown) Details: (units unknown) (unknown) (unknown) (no date) (unknown) (unknown) Diabetes mellitus (u nits unknown) (unknown) (unknown) (no date) (unknown) (unknown) Diabetes scree n- ordered (units unknown) (unknown) (unknown) (no date) (unknown) (unknown) Difficulty Breathing (units unknown) (unknown) (unknown) (no date) (unknown) (unknown) Discontinued Reason: Patient no longer taking 2 mg PO Q4H PRN 25 tabs 0RF (units unknown) (unknown) (unknown) (no date) (unknown) (unknown) Discontinued (units unknown) (unknown) (unknown) (no date) (unknown) (unknown) Discussed diet and exercise. Discussed patient goals. Counseled patient on (units unknown) (unknown) (unknown) (no date) (unknown) (unknown) Documented By: Franco Ray MD 04/13/23 0756 (units unknown) (unknown) (unknown) (no date) (unknown) (unknown) Draft (units unknown) (unknown) (unknown) (no date) (unknown) (unknown) Drug use (units unknown) (unknown) (unknown) (no date) (unknown) (unknown) E66.01 - Morbi d (severe) obesity due to excess calories; Z68.41 - Body mass (units unknown) (unknown) (unknown) (no date) (unknown) (unknown) Effort + Inspection: (units unknown) (unknown) (unknown) (no date) (unknown) (unknown) Exam Narrative (unit s unknown) (unknown) (unknown) (no date) (unknown) (unknown) Exam Narrative: (uni ts unknown) (unknown) (unknown) (no date) (unknown) (unknown) Exam (units unknown) (unknown) (unknown) (no date) (unknown) (unknown) Extrem (units unknown) (unknown) (unknown) (no date) (unknown) (unknown) Family History (units unknown) (unknown) (unknown) (no date) (unknown) (unknown) Family Practic e Office Visit (units unknown) (unknown) (unknown) (no date) (unknown) (unknown) Father Diabete s mellitus (units unknown) (unknown) (unknown) (no date) (unknown) (unknown) Fatigue type: chronic, unspecified Qualified Code(s): R53.82 - Chronic (units unknown) (unknown) (unknown) (no date) (unknown) (unknown) Fatigue (units unknown) (unknown) (unknown) (no date) (unknown) (unknown) [facility] (units unknown) (unknown) (unknown) (no date) (unknown) (unknown) General: (units unknown) (unknown) (unknown) (no date) (unknown) (unknown) Grandfather Cancer ( units unknown) (unknown) (unknown) (no date) (unknown) (unknown) Grandfather Cancer (units unknown) (unknown) (unknown) (no date) (unknown) (unknown) Grandmother Cancer ( units unknown) (unknown) (unknown) (no date) (unknown) (unknown) Grandmother Stroke ( units unknown) (unknown) (unknown) (no date) (unknown) (unknown) HPI (units unknown) (unknown) (unknown) (no date) (unknown) (unknown) Height 5 ft 5 in (un its unknown) (unknown) (unknown) (no date) (unknown) (unknown) History of appendectomy (units unknown) (unknown) (unknown) (no date) (unknown) (unknown) History of jaydon arean section (units unknown) (unknown) (unknown) (no date) (unknown) (unknown) History of hea rt disease (units unknown) (unknown) (unknown) (no date) (unknown) (unknown) Hyperlipidemia (unit s unknown) (unknown) (unknown) (no date) (unknown) (unknown) Hyperlipidemia -not due (units unknown) (unknown) (unknown) (no date) (unknown) (unknown) Hypertension (units unknown) (unknown) (unknown) (no date) (unknown) (unknown) Immunizations- Up to date (units unknown) (unknown) (unknown) (no date) (unknown) (unknown) Intake Note: (units unknown) (unknown) (unknown) (no date) (unknown) (unknown) Intake perform ed by: Delores Rice (units unknown) (unknown) (unknown) (no date) (unknown) (unknown) Intake (units unknown) (unknown) (unknown) (no date) (unknown) (unknown) Intake- Clinci al Staff (units unknown) (unknown) (unknown) (no date) (unknown) (unknown) Leg edema, right (un its unknown) (unknown) (unknown) (no date) (unknown) (unknown) Loc: [facility] (units unknown) (unknown) (unknown) (no date) (unknown) (unknown) MULTIVITAMIN (Multivitamin -) 1 tab PO ##0 03/22/10 [History (units unknown) (unknown) (unknown) (no date) (unknown) (unknown) Medical Histor y (Updated 02/21/23 @ 17:31 by Terrell Cifuentes DO) (units unknown) (unknown) (unknown) (no date) (unknown) (unknown) Medications (units unknown) (unknown) (unknown) (no date) (unknown) (unknown) Medications: (units unknown) (unknown) (unknown) (no date) (unknown) (unknown) Neuro (units unknown) (unknown) (unknown) (no date) (unknown) (unknown) Obesity (units unknown) (unknown) (unknown) (no date) (unknown) (unknown) Orientation: a lert, awake and oriented x3 (units unknown) (unknown) (unknown) (no date) (unknown) (unknown) PFSH (units unknown) (unknown) (unknown) (no date) (unknown) (unknown) Patient: Zoya James MR#: [id number] (units unknown) (unknown) (unknown) (no date) (unknown) (unknown) Plan (units unknown) (unknown) (unknown) (no date) (unknown) (unknown) Position Sitting (un its unknown) (unknown) (unknown) (no date) (unknown) (unknown) Psych (units unknown) (unknown) (unknown) (no date) (unknown) (unknown) Pt here to f/u on back surg and external home stress- pt's asked for (units unknown) (unknown) (unknown) (no date) (unknown) (unknown) Pulse 80 (units unknown) (unknown) (unknown) (no date) (unknown) (unknown) Pulse Source Monitor (units unknown) (unknown) (unknown) (no date) (unknown) (unknown) Qualifiers: (units unknown) (unknown) (unknown) (no date) (unknown) (unknown) Reason For Visit (un its unknown) (unknown) (unknown) (no date) (unknown) (unknown) Resp (units unknown) (unknown) (unknown) (no date) (unknown) (unknown) Right leg numbness ( units unknown) (unknown) (unknown) (no date) (unknown) (unknown) She had diskec juan about [address] Stiles. She is doing reasonably well (units unknown) (unknown) (unknown) (no date) (unknown) (unknown) She is due for number screening labs that have been ordered. She also will (units unknown) (unknown) (unknown) (no date) (unknown) (unknown) Signed By: (units unknown) (unknown) (unknown) (no date) (unknown) (unknown) Smoking Status : Never smoker (units unknown) (unknown) (unknown) (no date) (unknown) (unknown) Social History (unit s unknown) (unknown) (unknown) (no date) (unknown) (unknown) Spinal stenosi s, lumbar region with neurogenic claudication (units unknown) (unknown) (unknown) (no date) (unknown) (unknown) Status: Acute (units unknown) (unknown) (unknown) (no date) (unknown) (unknown) Sulfa (Sulfona mide Antibiotics) Adverse Reaction (Verified 04/13/23 08:06) (units unknown) (unknown) (unknown) (no date) (unknown) (unknown) Surgical Histo ry (units unknown) (unknown) (unknown) (no date) (unknown) (unknown) This note may have been all or partially generated using voice recognition (units unknown) (unknown) (unknown) (no date) (unknown) (unknown) Tobacco + Subs tance Use (units unknown) (unknown) (unknown) (no date) (unknown) (unknown) Tobacco Status (unit s unknown) (unknown) (unknown) (no date) (unknown) (unknown) Varicose vein of leg (units unknown) (unknown) (unknown) (no date) (unknown) (unknown) Visit Reasons: depression (units unknown) (unknown) (unknown) (no date) (unknown) (unknown) Vitals (units unknown) (unknown) (unknown) (no date) (unknown) (unknown) Weakness of ri ght lower extremity (units unknown) (unknown) (unknown) (no date) (unknown) (unknown) Weight 248 lb (units unknown) (unknown) (unknown) (no date) (unknown) (unknown) Well-healing vertical scar in lumbar spine. (units unknown) (unknown) (unknown) (no date) (unknown) (unknown) acetaminophen 500 mg tablet (Tylenol Extra Strength) 500 mg PO Q6H PRN Pain (units unknown) (unknown) (unknown) (no date) (unknown) (unknown) acyclovir Nilesh rgy (Verified 04/13/23 08:06) (units unknown) (unknown) (unknown) (no date) (unknown) (unknown) affect and nor mal thought content (units unknown) (unknown) (unknown) (no date) (unknown) (unknown) alcohol intake : current (units unknown) (unknown) (unknown) (no date) (unknown) (unknown) codeine Allerg y (Verified 04/13/23 08:06) (units unknown) (unknown) (unknown) (no date) (unknown) (unknown) cyclobenzaprin e 10 mg tablet 10 mg PO BID PRN muscle spasm #30 tabs 02/06/23 [Rx (units unknown) (unknown) (unknown) (no date) (unknown) (unknown) difficulty breathing (units unknown) (unknown) (unknown) (no date) (unknown) (unknown) divorce and th is was a surprise to her (units unknown) (unknown) (unknown) (no date) (unknown) (unknown) fatigue, unspecified (units unknown) (unknown) (unknown) (no date) (unknown) (unknown) ferrous sulfat e 324 mg (65 mg iron) tablet,delayed release 324 mg PO DAILY #90 (units unknown) (unknown) (unknown) (no date) (unknown) (unknown) from that. Als o since last time I saw her, her filed for divorce, which (units unknown) (unknown) (unknown) (no date) (unknown) (unknown) grossly normal , mental status grossly normal, speech and movement normal, normal (units unknown) (unknown) (unknown) (no date) (unknown) (unknown) has been very challenging and stressful for her. (units unknown) (unknown) (unknown) (no date) (unknown) (unknown) have occurred. If there are any questions, please contact the Medical Records (units unknown) (unknown) (unknown) (no date) (unknown) (unknown) household memb ers: children (units unknown) (unknown) (unknown) (no date) (unknown) (unknown) hydrocodone Al lergy (Verified 04/13/23 08:06) (units unknown) (unknown) (unknown) (no date) (unknown) (unknown) hydromorphone (Dilaudid) (units unknown) (unknown) (unknown) (no date) (unknown) (unknown) ibuprofen 200 mg tablet 600 mg PO BID PRN pain #60 tabs 02/06/23 [Rx Confirmed (units unknown) (unknown) (unknown) (no date) (unknown) (unknown) index [BMI]40.0-44.9, adult (units unknown) (unknown) (unknown) (no date) (unknown) (unknown) latex Allergy (Verified 04/13/23 08:06) (units unknown) (unknown) (unknown) (no date) (unknown) (unknown) may occur. Occasional wrong-word or 'sound-alike' substitutions may have (units unknown) (unknown) (unknown) (no date) (unknown) (unknown) need to reschedule ( units unknown) (unknown) (unknown) (no date) (unknown) (unknown) normal cognition (un its unknown) (unknown) (unknown) (no date) (unknown) (unknown) normal respira tory effort, able to speak in complete sentences and no (units unknown) (unknown) (unknown) (no date) (unknown) (unknown) occurred due t o the inherent limitations of voice recognition software. Please (units unknown) (unknown) (unknown) (no date) (unknown) (unknown) oxycodone Nilesh rgy (Verified 04/13/23 08:06) (units unknown) (unknown) (unknown) (no date) (unknown) (unknown) pain (units unknown) (unknown) (unknown) (no date) (unknown) (unknown) patient alert, awake, patient oriented x3 (units unknown) (unknown) (unknown) (no date) (unknown) (unknown) presence: unspecified whether serious comorbidity present Qualified Code(s): (units unknown) (unknown) (unknown) (no date) (unknown) (unknown) proceed with upcoming surgery for laminectomy. (units unknown) (unknown) (unknown) (no date) (unknown) (unknown) rash (units unknown) (unknown) (unknown) (no date) (unknown) (unknown) read the note carefully and recognize, using context, where these substitutions (units unknown) (unknown) (unknown) (no date) (unknown) (unknown) respiratory distress (units unknown) (unknown) (unknown) (no date) (unknown) (unknown) screening labs and studies, which are listed below: (units unknown) (unknown) (unknown) (no date) (unknown) (unknown) software. Alth ough every effort is made to edit content, pluck separator errors (units unknown) (unknown) (unknown) (no date) (unknown) (unknown) tabs 03/16/23 [Rx Confirmed 04/13/23] (units unknown) (unknown) Result panel 119 (unknown) (no date) (unknown) (unknown) (no value) (units unknown) (unknown) (unknown) (no date) (unknown) (unknown) (1) Spinal stenosis, lumbar region with neurogenic claudication: (units unknown) (unknown) (unknown) (no date) (unknown) (unknown) (2) Fatigue: (units unknown) (unknown) (unknown) (no date) (unknown) (unknown) (3) Obesity: (units unknown) (unknown) (unknown) (no date) (unknown) (unknown) (BMI >= 40) Ob esity type: unspecified obesity type Serious obesity comorbidity (units unknown) (unknown) (unknown) (no date) (unknown) (unknown) (Scale Score 4 -6) 01/31/23 [History Confirmed 04/13/23] (units unknown) (unknown) (unknown) (no date) (unknown) (unknown) 04/13/23 (units unknown) (unknown) (unknown) (no date) (unknown) (unknown) 04/13/23] (units unknown) (unknown) (unknown) (no date) (unknown) (unknown) 08:03 (units unknown) (unknown) (unknown) (no date) (unknown) (unknown) 2019 cleared i n 2020 who is here for back surgery follow up and life stressors. (units unknown) (unknown) (unknown) (no date) (unknown) (unknown) [id number] (units unknown) (unknown) (unknown) (no date) (unknown) (unknown) Abnormal Pap s mear of cervix (-2018) (units unknown) (unknown) (unknown) (no date) (unknown) (unknown) Age/Sex: 37 / F Date of Service: (units unknown) (unknown) (unknown) (no date) (unknown) (unknown) All questions answered. Patient is in agreement with plan. (units unknown) (unknown) (unknown) (no date) (unknown) (unknown) Allergies (units unknown) (unknown) (unknown) (no date) (unknown) (unknown) Alopecia (units unknown) (unknown) (unknown) (no date) (unknown) (unknown) [place] [address] (units unknown) (unknown) (unknown) (no date) (unknown) (unknown) Anesthesia (units unknown) (unknown) (unknown) (no date) (unknown) (unknown) Anxiety/depres barbara screen- negative (units unknown) (unknown) (unknown) (no date) (unknown) (unknown) Appearance: (units unknown) (unknown) (unknown) (no date) (unknown) (unknown) Assessment + Plan (u nits unknown) (unknown) (unknown) (no date) (unknown) (unknown) Attending Dr: Franco Ray MD (units unknown) (unknown) (unknown) (no date) (unknown) (unknown) BMI 41.2 (units unknown) (unknown) (unknown) (no date) (unknown) (unknown) BP 126/70 (units unknown) (unknown) (unknown) (no date) (unknown) (unknown) Bilateral hand pain (units unknown) (unknown) (unknown) (no date) (unknown) (unknown) Blood Pressure Location Lt brachial (units unknown) (unknown) (unknown) (no date) (unknown) (unknown) Body mass inde x: BMI 40.0-44.9 Obesity classification: adult class 3 (units unknown) (unknown) (unknown) (no date) (unknown) (unknown) Breast Cancer screening- not due (units unknown) (unknown) (unknown) (no date) (unknown) (unknown) Carpal tunnel syndrome on both sides (units unknown) (unknown) (unknown) (no date) (unknown) (unknown) Cervical scree damien- pap smear is due, though she is on menstrual cycle and will (units unknown) (unknown) (unknown) (no date) (unknown) (unknown) Chief Complaint (uni ts unknown) (unknown) (unknown) (no date) (unknown) (unknown) Chief Complain t: Follow up back surgery and life stressors (units unknown) (unknown) (unknown) (no date) (unknown) (unknown) Cognition: (units unknown) (unknown) (unknown) (no date) (unknown) (unknown) Confirmed 04/13/23] (units unknown) (unknown) (unknown) (no date) (unknown) (unknown) Const General: healthy appearing, pleasant (units unknown) (unknown) (unknown) (no date) (unknown) (unknown) : 7 Acct:[id number] (units unknown) (unknown) (unknown) (no date) (unknown) (unknown) Dept at . (units unknown) (unknown) (unknown) (no date) (unknown) (unknown) Zoya is a 37-year-old female with history of elevated BMI, abnormal Pap in (units unknown) (unknown) (unknown) (no date) (unknown) (unknown) Details: (units unknown) (unknown) (unknown) (no date) (unknown) (unknown) Diabetes mellitus (u nits unknown) (unknown) (unknown) (no date) (unknown) (unknown) Diabetes scree n- ordered (units unknown) (unknown) (unknown) (no date) (unknown) (unknown) Difficulty Breathing (units unknown) (unknown) (unknown) (no date) (unknown) (unknown) Discussed diet and exercise. Discussed patient goals. Counseled patient on (units unknown) (unknown) (unknown) (no date) (unknown) (unknown) Documented By: Franco Ray MD 04/13/23 0756 (units unknown) (unknown) (unknown) (no date) (unknown) (unknown) Draft (units unknown) (unknown) (unknown) (no date) (unknown) (unknown) Drug use (units unknown) (unknown) (unknown) (no date) (unknown) (unknown) E66.01 - Morbi d (severe) obesity due to excess calories; Z68.41 - Body mass (units unknown) (unknown) (unknown) (no date) (unknown) (unknown) Effort + Inspection: (units unknown) (unknown) (unknown) (no date) (unknown) (unknown) Exam Narrative (unit s unknown) (unknown) (unknown) (no date) (unknown) (unknown) Exam Narrative: (uni ts unknown) (unknown) (unknown) (no date) (unknown) (unknown) Exam (units unknown) (unknown) (unknown) (no date) (unknown) (unknown) Extrem (units unknown) (unknown) (unknown) (no date) (unknown) (unknown) Family History (units unknown) (unknown) (unknown) (no date) (unknown) (unknown) Family Practic e Office Visit (units unknown) (unknown) (unknown) (no date) (unknown) (unknown) Father Diabete s mellitus (units unknown) (unknown) (unknown) (no date) (unknown) (unknown) Fatigue type: chronic, unspecified Qualified Code(s): R53.82 - Chronic (units unknown) (unknown) (unknown) (no date) (unknown) (unknown) Fatigue (units unknown) (unknown) (unknown) (no date) (unknown) (unknown) [facility] (units unknown) (unknown) (unknown) (no date) (unknown) (unknown) General: (units unknown) (unknown) (unknown) (no date) (unknown) (unknown) Grandfather Cancer ( units unknown) (unknown) (unknown) (no date) (unknown) (unknown) Grandfather Cancer (units unknown) (unknown) (unknown) (no date) (unknown) (unknown) Grandmother Cancer ( units unknown) (unknown) (unknown) (no date) (unknown) (unknown) Grandmother Stroke ( units unknown) (unknown) (unknown) (no date) (unknown) (unknown) HPI (units unknown) (unknown) (unknown) (no date) (unknown) (unknown) Height 5 ft 5 in (un its unknown) (unknown) (unknown) (no date) (unknown) (unknown) History of appendectomy (units unknown) (unknown) (unknown) (no date) (unknown) (unknown) History of jaydon arean section (units unknown) (unknown) (unknown) (no date) (unknown) (unknown) History of hea rt disease (units unknown) (unknown) (unknown) (no date) (unknown) (unknown) Hyperlipidemia (unit s unknown) (unknown) (unknown) (no date) (unknown) (unknown) Hyperlipidemia -not due (units unknown) (unknown) (unknown) (no date) (unknown) (unknown) Hypertension (units unknown) (unknown) (unknown) (no date) (unknown) (unknown) Immunizations- Up to date (units unknown) (unknown) (unknown) (no date) (unknown) (unknown) Intake Note: (units unknown) (unknown) (unknown) (no date) (unknown) (unknown) Intake perform ed by: Delores Rice (units unknown) (unknown) (unknown) (no date) (unknown) (unknown) Intake (units unknown) (unknown) (unknown) (no date) (unknown) (unknown) Intake- Clinci al Staff (units unknown) (unknown) (unknown) (no date) (unknown) (unknown) Leg edema, right (un its unknown) (unknown) (unknown) (no date) (unknown) (unknown) Loc: [facility] (units unknown) (unknown) (unknown) (no date) (unknown) (unknown) MULTIVITAMIN (Multivitamin -) 1 tab PO ##0 03/22/10 [History (units unknown) (unknown) (unknown) (no date) (unknown) (unknown) Medical Histor y (Updated 02/21/23 @ 17:31 by Terrell Cifuentes DO) (units unknown) (unknown) (unknown) (no date) (unknown) (unknown) Medications (units unknown) (unknown) (unknown) (no date) (unknown) (unknown) Neuro (units unknown) (unknown) (unknown) (no date) (unknown) (unknown) Obesity (units unknown) (unknown) (unknown) (no date) (unknown) (unknown) Orientation: a lert, awake and oriented x3 (units unknown) (unknown) (unknown) (no date) (unknown) (unknown) PFSH (units unknown) (unknown) (unknown) (no date) (unknown) (unknown) Patient: Zoya James MR#: [id number] (units unknown) (unknown) (unknown) (no date) (unknown) (unknown) Plan (units unknown) (unknown) (unknown) (no date) (unknown) (unknown) Position Sitting (un its unknown) (unknown) (unknown) (no date) (unknown) (unknown) Psych (units unknown) (unknown) (unknown) (no date) (unknown) (unknown) Pt here to f/u on back surg and external home stress- pt's asked for (units unknown) (unknown) (unknown) (no date) (unknown) (unknown) Pulse 80 (units unknown) (unknown) (unknown) (no date) (unknown) (unknown) Pulse Source Monitor (units unknown) (unknown) (unknown) (no date) (unknown) (unknown) Qualifiers: (units unknown) (unknown) (unknown) (no date) (unknown) (unknown) Reason For Visit (un its unknown) (unknown) (unknown) (no date) (unknown) (unknown) Resp (units unknown) (unknown) (unknown) (no date) (unknown) (unknown) Right leg numbness ( units unknown) (unknown) (unknown) (no date) (unknown) (unknown) She had diskec juan about [address] Stiles. She is doing reasonably well (units unknown) (unknown) (unknown) (no date) (unknown) (unknown) She is due for number screening labs that have been ordered. She also will (units unknown) (unknown) (unknown) (no date) (unknown) (unknown) Signed By: (units unknown) (unknown) (unknown) (no date) (unknown) (unknown) Smoking Status : Never smoker (units unknown) (unknown) (unknown) (no date) (unknown) (unknown) Social History (unit s unknown) (unknown) (unknown) (no date) (unknown) (unknown) Spinal stenosi s, lumbar region with neurogenic claudication (units unknown) (unknown) (unknown) (no date) (unknown) (unknown) Status: Acute (units unknown) (unknown) (unknown) (no date) (unknown) (unknown) Sulfa (Sulfona mide Antibiotics) Adverse Reaction (Verified 04/13/23 08:06) (units unknown) (unknown) (unknown) (no date) (unknown) (unknown) Surgical Histo ry (units unknown) (unknown) (unknown) (no date) (unknown) (unknown) This note may have been all or partially generated using voice recognition (units unknown) (unknown) (unknown) (no date) (unknown) (unknown) Tobacco + Subs tance Use (units unknown) (unknown) (unknown) (no date) (unknown) (unknown) Tobacco Status (unit s unknown) (unknown) (unknown) (no date) (unknown) (unknown) Varicose vein of leg (units unknown) (unknown) (unknown) (no date) (unknown) (unknown) Visit Reasons: depression (units unknown) (unknown) (unknown) (no date) (unknown) (unknown) Vitals (units unknown) (unknown) (unknown) (no date) (unknown) (unknown) Weakness of ri ght lower extremity (units unknown) (unknown) (unknown) (no date) (unknown) (unknown) Weight 248 lb (units unknown) (unknown) (unknown) (no date) (unknown) (unknown) Well-healing vertical scar in lumbar spine. (units unknown) (unknown) (unknown) (no date) (unknown) (unknown) acetaminophen 500 mg tablet (Tylenol Extra Strength) 500 mg PO Q6H PRN Pain (units unknown) (unknown) (unknown) (no date) (unknown) (unknown) acyclovir Nilesh rgy (Verified 04/13/23 08:06) (units unknown) (unknown) (unknown) (no date) (unknown) (unknown) affect and nor mal thought content (units unknown) (unknown) (unknown) (no date) (unknown) (unknown) alcohol intake : current (units unknown) (unknown) (unknown) (no date) (unknown) (unknown) codeine Allerg y (Verified 04/13/23 08:06) (units unknown) (unknown) (unknown) (no date) (unknown) (unknown) cyclobenzaprin e 10 mg tablet 10 mg PO BID PRN muscle spasm #30 tabs 02/06/23 [Rx (units unknown) (unknown) (unknown) (no date) (unknown) (unknown) difficulty breathing (units unknown) (unknown) (unknown) (no date) (unknown) (unknown) divorce and th is was a surprise to her (units unknown) (unknown) (unknown) (no date) (unknown) (unknown) fatigue, unspecified (units unknown) (unknown) (unknown) (no date) (unknown) (unknown) ferrous sulfat e 324 mg (65 mg iron) tablet,delayed release 324 mg PO DAILY #90 (units unknown) (unknown) (unknown) (no date) (unknown) (unknown) from that. Als o since last time I saw her, her filed for divorce, which (units unknown) (unknown) (unknown) (no date) (unknown) (unknown) grossly normal , mental status grossly normal, speech and movement normal, normal (units unknown) (unknown) (unknown) (no date) (unknown) (unknown) has been very challenging and stressful for her. (units unknown) (unknown) (unknown) (no date) (unknown) (unknown) have occurred. If there are any questions, please contact the Medical Records (units unknown) (unknown) (unknown) (no date) (unknown) (unknown) household memb ers: children (units unknown) (unknown) (unknown) (no date) (unknown) (unknown) hydrocodone Al lergy (Verified 04/13/23 08:06) (units unknown) (unknown) (unknown) (no date) (unknown) (unknown) ibuprofen 200 mg tablet 600 mg PO BID PRN pain #60 tabs 02/06/23 [Rx Confirmed (units unknown) (unknown) (unknown) (no date) (unknown) (unknown) index [BMI]40.0-44.9, adult (units unknown) (unknown) (unknown) (no date) (unknown) (unknown) latex Allergy (Verified 04/13/23 08:06) (units unknown) (unknown) (unknown) (no date) (unknown) (unknown) may occur. Occasional wrong-word or 'sound-alike' substitutions may have (units unknown) (unknown) (unknown) (no date) (unknown) (unknown) need to reschedule ( units unknown) (unknown) (unknown) (no date) (unknown) (unknown) normal cognition (un its unknown) (unknown) (unknown) (no date) (unknown) (unknown) normal respira tory effort, able to speak in complete sentences and no (units unknown) (unknown) (unknown) (no date) (unknown) (unknown) occurred due t o the inherent limitations of voice recognition software. Please (units unknown) (unknown) (unknown) (no date) (unknown) (unknown) oxycodone Nilesh rgy (Verified 04/13/23 08:06) (units unknown) (unknown) (unknown) (no date) (unknown) (unknown) patient alert, awake, patient oriented x3 (units unknown) (unknown) (unknown) (no date) (unknown) (unknown) presence: unspecified whether serious comorbidity present Qualified Code(s): (units unknown) (unknown) (unknown) (no date) (unknown) (unknown) proceed with upcoming surgery for laminectomy. (units unknown) (unknown) (unknown) (no date) (unknown) (unknown) rash (units unknown) (unknown) (unknown) (no date) (unknown) (unknown) read the note carefully and recognize, using context, where these substitutions (units unknown) (unknown) (unknown) (no date) (unknown) (unknown) respiratory distress (units unknown) (unknown) (unknown) (no date) (unknown) (unknown) screening labs and studies, which are listed below: (units unknown) (unknown) (unknown) (no date) (unknown) (unknown) software. Alth ough every effort is made to edit content, pluck separator errors (units unknown) (unknown) (unknown) (no date) (unknown) (unknown) tabs 03/16/23 [Rx Confirmed 04/13/23] (units unknown) (unknown) Result panel 120 (unknown) (no date) (unknown) (unknown) (no value) (units unknown) (unknown) (unknown) (no date) (unknown) (unknown) (1) Spinal stenosis, lumbar region with neurogenic claudication: (units unknown) (unknown) (unknown) (no date) (unknown) (unknown) (2) Fatigue: (units unknown) (unknown) (unknown) (no date) (unknown) (unknown) (3) Obesity: (units unknown) (unknown) (unknown) (no date) (unknown) (unknown) (4) Adjustment disorder: (units unknown) (unknown) (unknown) (no date) (unknown) (unknown) (BMI >= 40) Ob esity type: unspecified obesity type Serious obesity comorbidity (units unknown) (unknown) (unknown) (no date) (unknown) (unknown) (Scale Score 4 -6) 01/31/23 [History Confirmed 04/13/23] (units unknown) (unknown) (unknown) (no date) (unknown) (unknown) 04/13/23 0824 (units unknown) (unknown) (unknown) (no date) (unknown) (unknown) 04/13/23 (units unknown) (unknown) (unknown) (no date) (unknown) (unknown) 04/13/23] (units unknown) (unknown) (unknown) (no date) (unknown) (unknown) 08:03 (units unknown) (unknown) (unknown) (no date) (unknown) (unknown) 2019 cleared i n 2020 who is here for back surgery follow up and life stressors. (units unknown) (unknown) (unknown) (no date) (unknown) (unknown) [id number] (units unknown) (unknown) (unknown) (no date) (unknown) (unknown) Abnormal Pap s mear of cervix (-2018) (units unknown) (unknown) (unknown) (no date) (unknown) (unknown) Adjustment dis order type: unspecified type Qualified Code(s): F43.20 (units unknown) (unknown) (unknown) (no date) (unknown) (unknown) Adjustment disorder, unspecified (units unknown) (unknown) (unknown) (no date) (unknown) (unknown) Age/Sex: 37 / F Date of Service: (units unknown) (unknown) (unknown) (no date) (unknown) (unknown) Allergies (units unknown) (unknown) (unknown) (no date) (unknown) (unknown) Alopecia (units unknown) (unknown) (unknown) (no date) (unknown) (unknown) [place] [address] (units unknown) (unknown) (unknown) (no date) (unknown) (unknown) Anesthesia (units unknown) (unknown) (unknown) (no date) (unknown) (unknown) Appearance: (units unknown) (unknown) (unknown) (no date) (unknown) (unknown) Assessment + Plan (u nits unknown) (unknown) (unknown) (no date) (unknown) (unknown) Attending Dr: Franco aRy MD (units unknown) (unknown) (unknown) (no date) (unknown) (unknown) BMI 41.2 (units unknown) (unknown) (unknown) (no date) (unknown) (unknown) BP 126/70 (units unknown) (unknown) (unknown) (no date) (unknown) (unknown) Bilateral hand pain (units unknown) (unknown) (unknown) (no date) (unknown) (unknown) Blood Pressure Location Lt brachial (units unknown) (unknown) (unknown) (no date) (unknown) (unknown) Body mass inde x: BMI 40.0-44.9 Obesity classification: adult class 3 (units unknown) (unknown) (unknown) (no date) (unknown) (unknown) Carpal tunnel syndrome on both sides (units unknown) (unknown) (unknown) (no date) (unknown) (unknown) Chief Complaint (uni ts unknown) (unknown) (unknown) (no date) (unknown) (unknown) Chief Complain t: Follow up back surgery and life stressors (units unknown) (unknown) (unknown) (no date) (unknown) (unknown) Cognition: (units unknown) (unknown) (unknown) (no date) (unknown) (unknown) Confirmed 04/13/23] (units unknown) (unknown) (unknown) (no date) (unknown) (unknown) Const General: healthy appearing, pleasant (units unknown) (unknown) (unknown) (no date) (unknown) (unknown) : 7 Acct:[id number] (units unknown) (unknown) (unknown) (no date) (unknown) (unknown) Dept at . (units unknown) (unknown) (unknown) (no date) (unknown) (unknown) Zoya is a 37-year-old female with history of elevated BMI, abnormal Pap in (units unknown) (unknown) (unknown) (no date) (unknown) (unknown) Details: (units unknown) (unknown) (unknown) (no date) (unknown) (unknown) Diabetes mellitus (u nits unknown) (unknown) (unknown) (no date) (unknown) (unknown) Difficulty Breathing (units unknown) (unknown) (unknown) (no date) (unknown) (unknown) Documented By: Franco Ray MD 04/13/23 0756 (units unknown) (unknown) (unknown) (no date) (unknown) (unknown) Drug use (units unknown) (unknown) (unknown) (no date) (unknown) (unknown) E66.01 - Morbi d (severe) obesity due to excess calories; Z68.41 - Body mass (units unknown) (unknown) (unknown) (no date) (unknown) (unknown) Effort + Inspection: (units unknown) (unknown) (unknown) (no date) (unknown) (unknown) Exam Narrative (unit s unknown) (unknown) (unknown) (no date) (unknown) (unknown) Exam Narrative: (uni ts unknown) (unknown) (unknown) (no date) (unknown) (unknown) Exam (units unknown) (unknown) (unknown) (no date) (unknown) (unknown) Extrem (units unknown) (unknown) (unknown) (no date) (unknown) (unknown) Family History (units unknown) (unknown) (unknown) (no date) (unknown) (unknown) Family Practic e Office Visit (units unknown) (unknown) (unknown) (no date) (unknown) (unknown) Father Diabete s mellitus (units unknown) (unknown) (unknown) (no date) (unknown) (unknown) Fatigue type: chronic, unspecified Qualified Code(s): R53.82 - Chronic (units unknown) (unknown) (unknown) (no date) (unknown) (unknown) Fatigue (units unknown) (unknown) (unknown) (no date) (unknown) (unknown) [facility] (units unknown) (unknown) (unknown) (no date) (unknown) (unknown) General: (units unknown) (unknown) (unknown) (no date) (unknown) (unknown) Grandfather Cancer ( units unknown) (unknown) (unknown) (no date) (unknown) (unknown) Grandfather Cancer (units unknown) (unknown) (unknown) (no date) (unknown) (unknown) Grandmother Cancer ( units unknown) (unknown) (unknown) (no date) (unknown) (unknown) Grandmother Stroke ( units unknown) (unknown) (unknown) (no date) (unknown) (unknown) HPI (units unknown) (unknown) (unknown) (no date) (unknown) (unknown) Height 5 ft 5 in (un its unknown) (unknown) (unknown) (no date) (unknown) (unknown) History of appendectomy (units unknown) (unknown) (unknown) (no date) (unknown) (unknown) History of jaydon arean section (units unknown) (unknown) (unknown) (no date) (unknown) (unknown) History of hea rt disease (units unknown) (unknown) (unknown) (no date) (unknown) (unknown) Hyperlipidemia (unit s unknown) (unknown) (unknown) (no date) (unknown) (unknown) Hypertension (units unknown) (unknown) (unknown) (no date) (unknown) (unknown) Intake Note: (units unknown) (unknown) (unknown) (no date) (unknown) (unknown) Intake perform ed by: Delores Rice (units unknown) (unknown) (unknown) (no date) (unknown) (unknown) Intake (units unknown) (unknown) (unknown) (no date) (unknown) (unknown) Intake- Leo al Staff (units unknown) (unknown) (unknown) (no date) (unknown) (unknown) Leg edema, right (un its unknown) (unknown) (unknown) (no date) (unknown) (unknown) Loc: [facility] (units unknown) (unknown) (unknown) (no date) (unknown) (unknown) MULTIVITAMIN (Multivitamin -) 1 tab PO ##0 03/22/10 [History (units unknown) (unknown) (unknown) (no date) (unknown) (unknown) Medical Histor y (Updated 02/21/23 @ 17:31 by Terrell Cifuentes DO) (units unknown) (unknown) (unknown) (no date) (unknown) (unknown) Medications (units unknown) (unknown) (unknown) (no date) (unknown) (unknown) Neuro (units unknown) (unknown) (unknown) (no date) (unknown) (unknown) Obesity (units unknown) (unknown) (unknown) (no date) (unknown) (unknown) Orientation: a lert, awake and oriented x3 (units unknown) (unknown) (unknown) (no date) (unknown) (unknown) PFSH (units unknown) (unknown) (unknown) (no date) (unknown) (unknown) Patient: Zoya James MR#: [id number] (units unknown) (unknown) (unknown) (no date) (unknown) (unknown) Plan (units unknown) (unknown) (unknown) (no date) (unknown) (unknown) Position Sitting (un its unknown) (unknown) (unknown) (no date) (unknown) (unknown) Psych (units unknown) (unknown) (unknown) (no date) (unknown) (unknown) Pt here to f/u on back surg and external home stress- pt's asked for (units unknown) (unknown) (unknown) (no date) (unknown) (unknown) Pulse 80 (units unknown) (unknown) (unknown) (no date) (unknown) (unknown) Pulse Source Monitor (units unknown) (unknown) (unknown) (no date) (unknown) (unknown) Qualifiers: (units unknown) (unknown) (unknown) (no date) (unknown) (unknown) Reason For Visit (un its unknown) (unknown) (unknown) (no date) (unknown) (unknown) Resp (units unknown) (unknown) (unknown) (no date) (unknown) (unknown) Right leg numbness ( units unknown) (unknown) (unknown) (no date) (unknown) (unknown) She had diskec juan about [address] Stiles. She is doing reasonably well (units unknown) (unknown) (unknown) (no date) (unknown) (unknown) She is doing w ell post laminectomy. Well-healed scar. She is struggling (units unknown) (unknown) (unknown) (no date) (unknown) (unknown) She will follo w-up with [place] for Pap smear. (units unknown) (unknown) (unknown) (no date) (unknown) (unknown) Signed By: <Electronically signed by Franco Ray MD> (units unknown) (unknown) (unknown) (no date) (unknown) (unknown) Signed (units unknown) (unknown) (unknown) (no date) (unknown) (unknown) Smoking Status : Never smoker (units unknown) (unknown) (unknown) (no date) (unknown) (unknown) Social History (unit s unknown) (unknown) (unknown) (no date) (unknown) (unknown) Spinal stenosi s, lumbar region with neurogenic claudication (units unknown) (unknown) (unknown) (no date) (unknown) (unknown) Status: Acute (units unknown) (unknown) (unknown) (no date) (unknown) (unknown) Sulfa (Sulfona mide Antibiotics) Adverse Reaction (Verified 04/13/23 08:06) (units unknown) (unknown) (unknown) (no date) (unknown) (unknown) Surgical Histo ry (units unknown) (unknown) (unknown) (no date) (unknown) (unknown) This note may have been all or partially generated using voice recognition (units unknown) (unknown) (unknown) (no date) (unknown) (unknown) Tobacco + Subs tance Use (units unknown) (unknown) (unknown) (no date) (unknown) (unknown) Tobacco Status (unit s unknown) (unknown) (unknown) (no date) (unknown) (unknown) Varicose vein of leg (units unknown) (unknown) (unknown) (no date) (unknown) (unknown) Visit Reasons: depression (units unknown) (unknown) (unknown) (no date) (unknown) (unknown) Vitals (units unknown) (unknown) (unknown) (no date) (unknown) (unknown) Weakness of ri ght lower extremity (units unknown) (unknown) (unknown) (no date) (unknown) (unknown) Weight 248 lb (units unknown) (unknown) (unknown) (no date) (unknown) (unknown) Well-healing vertical scar in lumbar spine. (units unknown) (unknown) (unknown) (no date) (unknown) (unknown) acetaminophen 500 mg tablet (Tylenol Extra Strength) 500 mg PO Q6H PRN Pain (units unknown) (unknown) (unknown) (no date) (unknown) (unknown) acyclovir Nilesh rgy (Verified 04/13/23 08:06) (units unknown) (unknown) (unknown) (no date) (unknown) (unknown) affect and nor mal thought content (units unknown) (unknown) (unknown) (no date) (unknown) (unknown) alcohol intake : current (units unknown) (unknown) (unknown) (no date) (unknown) (unknown) codeine Allerg y (Verified 04/13/23 08:06) (units unknown) (unknown) (unknown) (no date) (unknown) (unknown) cyclobenzaprin e 10 mg tablet 10 mg PO BID PRN muscle spasm #30 tabs 02/06/23 [Rx (units unknown) (unknown) (unknown) (no date) (unknown) (unknown) difficulty breathing (units unknown) (unknown) (unknown) (no date) (unknown) (unknown) divorce and th is was a surprise to her (units unknown) (unknown) (unknown) (no date) (unknown) (unknown) fatigue, unspecified (units unknown) (unknown) (unknown) (no date) (unknown) (unknown) ferrous sulfat e 324 mg (65 mg iron) tablet,delayed release 324 mg PO DAILY #90 (units unknown) (unknown) (unknown) (no date) (unknown) (unknown) from that. Als o since last time I saw her, her filed for divorce, which (units unknown) (unknown) (unknown) (no date) (unknown) (unknown) grossly normal , mental status grossly normal, speech and movement normal, normal (units unknown) (unknown) (unknown) (no date) (unknown) (unknown) has been challenging and stressful for her. She did initially have some passive (units unknown) (unknown) (unknown) (no date) (unknown) (unknown) have any curre nt suicidal ideation. We did discuss therapy options and she is (units unknown) (unknown) (unknown) (no date) (unknown) (unknown) have occurred. If there are any questions, please contact the Medical Records (units unknown) (unknown) (unknown) (no date) (unknown) (unknown) have support o f her mother. (units unknown) (unknown) (unknown) (no date) (unknown) (unknown) household memb ers: children (units unknown) (unknown) (unknown) (no date) (unknown) (unknown) hydrocodone Al lergy (Verified 04/13/23 08:06) (units unknown) (unknown) (unknown) (no date) (unknown) (unknown) ibuprofen 200 mg tablet 600 mg PO BID PRN pain #60 tabs 02/06/23 [Rx Confirmed (units unknown) (unknown) (unknown) (no date) (unknown) (unknown) index [BMI]40.0-44.9, adult (units unknown) (unknown) (unknown) (no date) (unknown) (unknown) interested in pursuing this. She is overall coping reasonably well. She does (units unknown) (unknown) (unknown) (no date) (unknown) (unknown) latex Allergy (Verified 04/13/23 08:06) (units unknown) (unknown) (unknown) (no date) (unknown) (unknown) may occur. Occasional wrong-word or 'sound-alike' substitutions may have (units unknown) (unknown) (unknown) (no date) (unknown) (unknown) normal cognition (un its unknown) (unknown) (unknown) (no date) (unknown) (unknown) normal respira tory effort, able to speak in complete sentences and no (units unknown) (unknown) (unknown) (no date) (unknown) (unknown) occurred due t o the inherent limitations of voice recognition software. Please (units unknown) (unknown) (unknown) (no date) (unknown) (unknown) oxycodone Nilesh rgy (Verified 04/13/23 08:06) (units unknown) (unknown) (unknown) (no date) (unknown) (unknown) patient alert, awake, patient oriented x3 (units unknown) (unknown) (unknown) (no date) (unknown) (unknown) presence: unspecified whether serious comorbidity present Qualified Code(s): (units unknown) (unknown) (unknown) (no date) (unknown) (unknown) rash (units unknown) (unknown) (unknown) (no date) (unknown) (unknown) read the note carefully and recognize, using context, where these substitutions (units unknown) (unknown) (unknown) (no date) (unknown) (unknown) resolved and d jailyn ok. (units unknown) (unknown) (unknown) (no date) (unknown) (unknown) respiratory distress (units unknown) (unknown) (unknown) (no date) (unknown) (unknown) software. Alth ough every effort is made to edit content, pluck separator errors (units unknown) (unknown) (unknown) (no date) (unknown) (unknown) somewhat with recent pronouncement of divorce from her . She does not (units unknown) (unknown) (unknown) (no date) (unknown) (unknown) suicidal ideat ion but this has since passed. She is overall feeling fairly (units unknown) (unknown) (unknown) (no date) (unknown) (unknown) tabs 03/16/23 [Rx Confirmed 04/13/23] (units unknown) (unknown) Result panel 121 (unknown) (no date) (unknown) (unknown) (no value) (units unknown) (unknown) (unknown) (no date) (unknown) (unknown) (1) High risk heterosexual behavior: (units unknown) (unknown) (unknown) (no date) (unknown) (unknown) 04/19/23 (units unknown) (unknown) (unknown) (no date) (unknown) (unknown) 10:09 (units unknown) (unknown) (unknown) (no date) (unknown) (unknown) [id number] (units unknown) (unknown) (unknown) (no date) (unknown) (unknown) Abnormal Pap s mear of cervix () (units unknown) (unknown) (unknown) (no date) (unknown) (unknown) Age/Sex: 37 / F Date of Service: (units unknown) (unknown) (unknown) (no date) (unknown) (unknown) Allergies (units unknown) (unknown) (unknown) (no date) (unknown) (unknown) Alopecia (units unknown) (unknown) (unknown) (no date) (unknown) (unknown) [place] [address] (units unknown) (unknown) (unknown) (no date) (unknown) (unknown) Anesthesia (units unknown) (unknown) (unknown) (no date) (unknown) (unknown) Assessment + Plan (u nits unknown) (unknown) (unknown) (no date) (unknown) (unknown) Attending Dr: Franco Rya MD (units unknown) (unknown) (unknown) (no date) (unknown) (unknown) BMI 40.6 (units unknown) (unknown) (unknown) (no date) (unknown) (unknown) BP 126/72 (units unknown) (unknown) (unknown) (no date) (unknown) (unknown) Bilateral hand pain (units unknown) (unknown) (unknown) (no date) (unknown) (unknown) Carpal tunnel syndrome on both sides (units unknown) (unknown) (unknown) (no date) (unknown) (unknown) Chlamydia Gono rrhea PCR -URINE 1 Week F43.20 - Adjustment disorder, unspecified, (units unknown) (unknown) (unknown) (no date) (unknown) (unknown) : 7 Acct:[id number] (units unknown) (unknown) (unknown) (no date) (unknown) (unknown) Date of Last Menstrual Period: 04/19/23 (units unknown) (unknown) (unknown) (no date) (unknown) (unknown) Dept at . (units unknown) (unknown) (unknown) (no date) (unknown) (unknown) Diabetes mellitus (u nits unknown) (unknown) (unknown) (no date) (unknown) (unknown) Difficulty Breathing (units unknown) (unknown) (unknown) (no date) (unknown) (unknown) Documented By: Franco Ray MD 04/19/23 1003 (units unknown) (unknown) (unknown) (no date) (unknown) (unknown) Draft (units unknown) (unknown) (unknown) (no date) (unknown) (unknown) Drug use (units unknown) (unknown) (unknown) (no date) (unknown) (unknown) Family History (units unknown) (unknown) (unknown) (no date) (unknown) (unknown) Family Practic e Office Visit (units unknown) (unknown) (unknown) (no date) (unknown) (unknown) Father Diabete s mellitus (units unknown) (unknown) (unknown) (no date) (unknown) (unknown) Fatigue (units unknown) (unknown) (unknown) (no date) (unknown) (unknown) [facility] (units unknown) (unknown) (unknown) (no date) (unknown) (unknown) Grandfather Cancer ( units unknown) (unknown) (unknown) (no date) (unknown) (unknown) Grandfather Cancer (units unknown) (unknown) (unknown) (no date) (unknown) (unknown) Grandmother Cancer ( units unknown) (unknown) (unknown) (no date) (unknown) (unknown) Grandmother Stroke ( units unknown) (unknown) (unknown) (no date) (unknown) (unknown) HIV 1 + 2 Ab/A g 4th Gen Combo 1 Week F43.20 - Adjustment disorder, unspecified, (units unknown) (unknown) (unknown) (no date) (unknown) (unknown) Health Managem ent reviewed with patient: Yes (units unknown) (unknown) (unknown) (no date) (unknown) (unknown) Health Management (u nits unknown) (unknown) (unknown) (no date) (unknown) (unknown) Height 5 ft 5 in (un its unknown) (unknown) (unknown) (no date) (unknown) (unknown) Hepatitis Acut e Panel 1 Week F43.20 - Adjustment disorder, unspecified, Z72.51 (units unknown) (unknown) (unknown) (no date) (unknown) (unknown) High risk heterosexual behavior (units unknown) (unknown) (unknown) (no date) (unknown) (unknown) History of appendectomy (units unknown) (unknown) (unknown) (no date) (unknown) (unknown) History of jaydon arean section (units unknown) (unknown) (unknown) (no date) (unknown) (unknown) History of hea rt disease (units unknown) (unknown) (unknown) (no date) (unknown) (unknown) Hyperlipidemia (unit s unknown) (unknown) (unknown) (no date) (unknown) (unknown) Hypertension (units unknown) (unknown) (unknown) (no date) (unknown) (unknown) Intake (units unknown) (unknown) (unknown) (no date) (unknown) (unknown) Last Menstural Cycle + Details (units unknown) (unknown) (unknown) (no date) (unknown) (unknown) Leg edema, right (un its unknown) (unknown) (unknown) (no date) (unknown) (unknown) Loc: [facility] (units unknown) (unknown) (unknown) (no date) (unknown) (unknown) Medical Histor y (Updated 04/19/23 @ 10:08 by Franco Ray MD) (units unknown) (unknown) (unknown) (no date) (unknown) (unknown) Obesity (units unknown) (unknown) (unknown) (no date) (unknown) (unknown) Orders (units unknown) (unknown) (unknown) (no date) (unknown) (unknown) Orders: (units unknown) (unknown) (unknown) (no date) (unknown) (unknown) PFSH (units unknown) (unknown) (unknown) (no date) (unknown) (unknown) Patient: Zoya James MR#: [id number] (units unknown) (unknown) (unknown) (no date) (unknown) (unknown) Pulse 74 (units unknown) (unknown) (unknown) (no date) (unknown) (unknown) Pulse Oximetry (%) 99 (units unknown) (unknown) (unknown) (no date) (unknown) (unknown) RPR W Reflex t o Titer 1 Week F43.20 - Adjustment disorder, unspecified, Z72.51 (units unknown) (unknown) (unknown) (no date) (unknown) (unknown) Reason For Visit (un its unknown) (unknown) (unknown) (no date) (unknown) (unknown) Right leg numbness ( units unknown) (unknown) (unknown) (no date) (unknown) (unknown) Signed By: (units unknown) (unknown) (unknown) (no date) (unknown) (unknown) Smoking Status : Never smoker (units unknown) (unknown) (unknown) (no date) (unknown) (unknown) Social History (unit s unknown) (unknown) (unknown) (no date) (unknown) (unknown) Spinal stenosi s, lumbar region with neurogenic claudication (units unknown) (unknown) (unknown) (no date) (unknown) (unknown) Status: Acute (units unknown) (unknown) (unknown) (no date) (unknown) (unknown) Sulfa (Sulfona mide Antibiotics) Adverse Reaction (Verified 04/13/23 08:06) (units unknown) (unknown) (unknown) (no date) (unknown) (unknown) Surgical Histo ry (units unknown) (unknown) (unknown) (no date) (unknown) (unknown) This note may have been all or partially generated using voice recognition (units unknown) (unknown) (unknown) (no date) (unknown) (unknown) Tobacco + Subs tance Use (units unknown) (unknown) (unknown) (no date) (unknown) (unknown) Tobacco Status (unit s unknown) (unknown) (unknown) (no date) (unknown) (unknown) Varicose vein of leg (units unknown) (unknown) (unknown) (no date) (unknown) (unknown) Visit Reasons: PAP/STI testing (units unknown) (unknown) (unknown) (no date) (unknown) (unknown) Vitals (units unknown) (unknown) (unknown) (no date) (unknown) (unknown) Weakness of ri ght lower extremity (units unknown) (unknown) (unknown) (no date) (unknown) (unknown) Weight 244 lb (units unknown) (unknown) (unknown) (no date) (unknown) (unknown) Z72.51 - High risk heterosexual behavior (units unknown) (unknown) (unknown) (no date) (unknown) (unknown) acyclovir Nilesh rgy (Verified 04/13/23 08:06) (units unknown) (unknown) (unknown) (no date) (unknown) (unknown) alcohol intake : current (units unknown) (unknown) (unknown) (no date) (unknown) (unknown) codeine Allerg y (Verified 04/13/23 08:06) (units unknown) (unknown) (unknown) (no date) (unknown) (unknown) difficulty breathing (units unknown) (unknown) (unknown) (no date) (unknown) (unknown) have occurred. If there are any questions, please contact the Medical Records (units unknown) (unknown) (unknown) (no date) (unknown) (unknown) household memb ers: children (units unknown) (unknown) (unknown) (no date) (unknown) (unknown) hydrocodone Al lergy (Verified 04/13/23 08:06) (units unknown) (unknown) (unknown) (no date) (unknown) (unknown) latex Allergy (Verified 04/13/23 08:06) (units unknown) (unknown) (unknown) (no date) (unknown) (unknown) may occur. Occasional wrong-word or 'sound-alike' substitutions may have (units unknown) (unknown) (unknown) (no date) (unknown) (unknown) occurred due t o the inherent limitations of voice recognition software. Please (units unknown) (unknown) (unknown) (no date) (unknown) (unknown) oxycodone Nilesh rgy (Verified 04/13/23 08:06) (units unknown) (unknown) (unknown) (no date) (unknown) (unknown) rash (units unknown) (unknown) (unknown) (no date) (unknown) (unknown) read the note carefully and recognize, using context, where these substitutions (units unknown) (unknown) (unknown) (no date) (unknown) (unknown) software. Alth ough every effort is made to edit content, pluck separator errors (units unknown) (unknown) Result panel 122 (unknown) (no date) (unknown) (unknown) (no value) (units unknown) (unknown) (unknown) (no date) (unknown) (unknown) (1) Adjustment disorder: (units unknown) (unknown) (unknown) (no date) (unknown) (unknown) (2) High risk heterosexual behavior: (units unknown) (unknown) (unknown) (no date) (unknown) (unknown) 04/19/23 1021 (units unknown) (unknown) (unknown) (no date) (unknown) (unknown) 06/15/23 (units unknown) (unknown) (unknown) (no date) (unknown) (unknown) 10:09 (units unknown) (unknown) (unknown) (no date) (unknown) (unknown) 2019 cleared i n 2020 who is here for follow up for STI screen and life (units unknown) (unknown) (unknown) (no date) (unknown) (unknown) [id number] (units unknown) (unknown) (unknown) (no date) (unknown) (unknown) Abnormal Pap s mear of cervix (-2018) (units unknown) (unknown) (unknown) (no date) (unknown) (unknown) Adjustment dis order type: unspecified type Qualified Code(s): F43.20 (units unknown) (unknown) (unknown) (no date) (unknown) (unknown) Adjustment disorder, unspecified (units unknown) (unknown) (unknown) (no date) (unknown) (unknown) Age/Sex: 37 / F Date of Service: (units unknown) (unknown) (unknown) (no date) (unknown) (unknown) Allergies (units unknown) (unknown) (unknown) (no date) (unknown) (unknown) Alopecia (units unknown) (unknown) (unknown) (no date) (unknown) (unknown) [place] [address] (units unknown) (unknown) (unknown) (no date) (unknown) (unknown) Anesthesia (units unknown) (unknown) (unknown) (no date) (unknown) (unknown) Appearance: (units unknown) (unknown) (unknown) (no date) (unknown) (unknown) Assessment + Plan (u nits unknown) (unknown) (unknown) (no date) (unknown) (unknown) Attending Dr: Franco Ray MD (units unknown) (unknown) (unknown) (no date) (unknown) (unknown) BMI 40.6 (units unknown) (unknown) (unknown) (no date) (unknown) (unknown) BP 126/72 (units unknown) (unknown) (unknown) (no date) (unknown) (unknown) Bilateral hand pain (units unknown) (unknown) (unknown) (no date) (unknown) (unknown) Carpal tunnel syndrome on both sides (units unknown) (unknown) (unknown) (no date) (unknown) (unknown) Chief Complaint (uni ts unknown) (unknown) (unknown) (no date) (unknown) (unknown) Chief Complain t: STI screening and adjustment/stress follow up (units unknown) (unknown) (unknown) (no date) (unknown) (unknown) Chlamydia Gono rrhea PCR -URINE 1 Week F43.20 - Adjustment disorder, unspecified, (units unknown) (unknown) (unknown) (no date) (unknown) (unknown) Cognition: (units unknown) (unknown) (unknown) (no date) (unknown) (unknown) Const General: healthy appearing, pleasant (units unknown) (unknown) (unknown) (no date) (unknown) (unknown) : 7 Acct:[id number] (units unknown) (unknown) (unknown) (no date) (unknown) (unknown) Date of Last Menstrual Period: 04/19/23 (units unknown) (unknown) (unknown) (no date) (unknown) (unknown) Dept at . (units unknown) (unknown) (unknown) (no date) (unknown) (unknown) Zoya is a 37-year-old female with history of elevated BMI, abnormal Pap in (units unknown) (unknown) (unknown) (no date) (unknown) (unknown) Details: (units unknown) (unknown) (unknown) (no date) (unknown) (unknown) Diabetes mellitus (u nits unknown) (unknown) (unknown) (no date) (unknown) (unknown) Difficulty Breathing (units unknown) (unknown) (unknown) (no date) (unknown) (unknown) Documented By: Franco Ray MD 04/19/23 1003 (units unknown) (unknown) (unknown) (no date) (unknown) (unknown) Drug use (units unknown) (unknown) (unknown) (no date) (unknown) (unknown) Effort + Inspection: (units unknown) (unknown) (unknown) (no date) (unknown) (unknown) Exam Narrative (unit s unknown) (unknown) (unknown) (no date) (unknown) (unknown) Exam Narrative: (uni ts unknown) (unknown) (unknown) (no date) (unknown) (unknown) Exam (units unknown) (unknown) (unknown) (no date) (unknown) (unknown) Extrem (units unknown) (unknown) (unknown) (no date) (unknown) (unknown) Family History (units unknown) (unknown) (unknown) (no date) (unknown) (unknown) Family Practic e Office Visit (units unknown) (unknown) (unknown) (no date) (unknown) (unknown) Father Diabete s mellitus (units unknown) (unknown) (unknown) (no date) (unknown) (unknown) Fatigue (units unknown) (unknown) (unknown) (no date) (unknown) (unknown) [facility] (units unknown) (unknown) (unknown) (no date) (unknown) (unknown) General: (units unknown) (unknown) (unknown) (no date) (unknown) (unknown) Grandfather Cancer ( units unknown) (unknown) (unknown) (no date) (unknown) (unknown) Grandfather Cancer (units unknown) (unknown) (unknown) (no date) (unknown) (unknown) Grandmother Cancer ( units unknown) (unknown) (unknown) (no date) (unknown) (unknown) Grandmother Stroke ( units unknown) (unknown) (unknown) (no date) (unknown) (unknown) HIV 1 + 2 Ab/A g 4th Gen Combo 1 Week F43.20 - Adjustment disorder, unspecified, (units unknown) (unknown) (unknown) (no date) (unknown) (unknown) HPI (units unknown) (unknown) (unknown) (no date) (unknown) (unknown) Health Managem ent reviewed with patient: Yes (units unknown) (unknown) (unknown) (no date) (unknown) (unknown) Health Management (u nits unknown) (unknown) (unknown) (no date) (unknown) (unknown) Height 5 ft 5 in (un its unknown) (unknown) (unknown) (no date) (unknown) (unknown) Hepatitis Acut e Panel 1 Week F43.20 - Adjustment disorder, unspecified, Z72.51 (units unknown) (unknown) (unknown) (no date) (unknown) (unknown) High risk heterosexual behavior (units unknown) (unknown) (unknown) (no date) (unknown) (unknown) History of appendectomy (units unknown) (unknown) (unknown) (no date) (unknown) (unknown) History of jaydon arean section (units unknown) (unknown) (unknown) (no date) (unknown) (unknown) History of hea rt disease (units unknown) (unknown) (unknown) (no date) (unknown) (unknown) Hyperlipidemia (unit s unknown) (unknown) (unknown) (no date) (unknown) (unknown) Hypertension (units unknown) (unknown) (unknown) (no date) (unknown) (unknown) Intake (units unknown) (unknown) (unknown) (no date) (unknown) (unknown) Last Menstural Cycle + Details (units unknown) (unknown) (unknown) (no date) (unknown) (unknown) Leg edema, right (un its unknown) (unknown) (unknown) (no date) (unknown) (unknown) Loc: [facility] (units unknown) (unknown) (unknown) (no date) (unknown) (unknown) Medical Histor y (Updated 04/19/23 @ 10:08 by Franco Ray MD) (units unknown) (unknown) (unknown) (no date) (unknown) (unknown) Neuro (units unknown) (unknown) (unknown) (no date) (unknown) (unknown) Obesity (units unknown) (unknown) (unknown) (no date) (unknown) (unknown) Orders (units unknown) (unknown) (unknown) (no date) (unknown) (unknown) Orders: (units unknown) (unknown) (unknown) (no date) (unknown) (unknown) Orientation: a lert, awake and oriented x3 (units unknown) (unknown) (unknown) (no date) (unknown) (unknown) PFSH (units unknown) (unknown) (unknown) (no date) (unknown) (unknown) Patient: Zoya James MR#: [id number] (units unknown) (unknown) (unknown) (no date) (unknown) (unknown) Plan (units unknown) (unknown) (unknown) (no date) (unknown) (unknown) Psych (units unknown) (unknown) (unknown) (no date) (unknown) (unknown) Pulse 74 (units unknown) (unknown) (unknown) (no date) (unknown) (unknown) Pulse Oximetry (%) 99 (units unknown) (unknown) (unknown) (no date) (unknown) (unknown) Qualifiers: (units unknown) (unknown) (unknown) (no date) (unknown) (unknown) RPR W Reflex t o Titer 1 Week F43.20 - Adjustment disorder, unspecified, Z72.51 (units unknown) (unknown) (unknown) (no date) (unknown) (unknown) Reason For Visit (un its unknown) (unknown) (unknown) (no date) (unknown) (unknown) Resp (units unknown) (unknown) (unknown) (no date) (unknown) (unknown) Right leg numbness ( units unknown) (unknown) (unknown) (no date) (unknown) (unknown) She is understandably struggling somewhat with recent pronouncement of divorce (units unknown) (unknown) (unknown) (no date) (unknown) (unknown) She will follo w-up with Lu[facility] Isaac for Pap smear. (units unknown) (unknown) (unknown) (no date) (unknown) (unknown) Signed By: <Electronically signed by Franco Ray MD> (units unknown) (unknown) (unknown) (no date) (unknown) (unknown) Signed (units unknown) (unknown) (unknown) (no date) (unknown) (unknown) Smoking Status : Never smoker (units unknown) (unknown) (unknown) (no date) (unknown) (unknown) Social History (unit s unknown) (unknown) (unknown) (no date) (unknown) (unknown) Spinal stenosi s, lumbar region with neurogenic claudication (units unknown) (unknown) (unknown) (no date) (unknown) (unknown) Status: Acute (units unknown) (unknown) (unknown) (no date) (unknown) (unknown) Sulfa (Sulfona mide Antibiotics) Adverse Reaction (Verified 04/13/23 08:06) (units unknown) (unknown) (unknown) (no date) (unknown) (unknown) Surgical Histo ry (units unknown) (unknown) (unknown) (no date) (unknown) (unknown) This note may have been all or partially generated using voice recognition (units unknown) (unknown) (unknown) (no date) (unknown) (unknown) Tobacco + Subs tance Use (units unknown) (unknown) (unknown) (no date) (unknown) (unknown) Tobacco Status (unit s unknown) (unknown) (unknown) (no date) (unknown) (unknown) Varicose vein of leg (units unknown) (unknown) (unknown) (no date) (unknown) (unknown) Visit Reasons: PAP/STI testing (units unknown) (unknown) (unknown) (no date) (unknown) (unknown) Vitals (units unknown) (unknown) (unknown) (no date) (unknown) (unknown) Weakness of ri ght lower extremity (units unknown) (unknown) (unknown) (no date) (unknown) (unknown) Weight 244 lb (units unknown) (unknown) (unknown) (no date) (unknown) (unknown) Well-healing vertical scar in lumbar spine. (units unknown) (unknown) (unknown) (no date) (unknown) (unknown) Z72.51 - High risk heterosexual behavior (units unknown) (unknown) (unknown) (no date) (unknown) (unknown) acyclovir Nilesh rgy (Verified 04/13/23 08:06) (units unknown) (unknown) (unknown) (no date) (unknown) (unknown) affect and nor mal thought content (units unknown) (unknown) (unknown) (no date) (unknown) (unknown) alcohol intake : current (units unknown) (unknown) (unknown) (no date) (unknown) (unknown) and would like STI screening. (units unknown) (unknown) (unknown) (no date) (unknown) (unknown) codeine Allerg y (Verified 04/13/23 08:06) (units unknown) (unknown) (unknown) (no date) (unknown) (unknown) coping reasona beth well. She does have support of her mother. Will check STI (units unknown) (unknown) (unknown) (no date) (unknown) (unknown) cuss therapy options and she is interested in pursuing this. She is overall (units unknown) (unknown) (unknown) (no date) (unknown) (unknown) difficulty breathing (units unknown) (unknown) (unknown) (no date) (unknown) (unknown) fairly resolve d and doing ok. She does have some concern that he was unfaithful (units unknown) (unknown) (unknown) (no date) (unknown) (unknown) [place] She does not have any current suicidal ideation. We did dis (units unknown) (unknown) (unknown) (no date) (unknown) (unknown) grossly normal , mental status grossly normal, speech and movement normal, normal (units unknown) (unknown) (unknown) (no date) (unknown) (unknown) have occurred. If there are any questions, please contact the Medical Records (units unknown) (unknown) (unknown) (no date) (unknown) (unknown) household memb ers: children (units unknown) (unknown) (unknown) (no date) (unknown) (unknown) hydrocodone Al lergy (Verified 04/13/23 08:06) (units unknown) (unknown) (unknown) (no date) (unknown) (unknown) indiscretion. (units unknown) (unknown) (unknown) (no date) (unknown) (unknown) latex Allergy (Verified 04/13/23 08:06) (units unknown) (unknown) (unknown) (no date) (unknown) (unknown) may occur. Occasional wrong-word or 'sound-alike' substitutions may have (units unknown) (unknown) (unknown) (no date) (unknown) (unknown) normal cognition (un its unknown) (unknown) (unknown) (no date) (unknown) (unknown) normal respira tory effort, able to speak in complete sentences and no (units unknown) (unknown) (unknown) (no date) (unknown) (unknown) occurred due t o the inherent limitations of voice recognition software. Please (units unknown) (unknown) (unknown) (no date) (unknown) (unknown) oxycodone Nilesh rgy (Verified 04/13/23 08:06) (units unknown) (unknown) (unknown) (no date) (unknown) (unknown) passive suicid al ideation but this has since passed. She is overall feeling (units unknown) (unknown) (unknown) (no date) (unknown) (unknown) patient alert, awake, patient oriented x3 (units unknown) (unknown) (unknown) (no date) (unknown) (unknown) rash (units unknown) (unknown) (unknown) (no date) (unknown) (unknown) read the note carefully and recognize, using context, where these substitutions (units unknown) (unknown) (unknown) (no date) (unknown) (unknown) respiratory distress (units unknown) (unknown) (unknown) (no date) (unknown) (unknown) screen as she does have some concern about 's potential sexual (units unknown) (unknown) (unknown) (no date) (unknown) (unknown) software. Alth ough every effort is made to edit content, pluck separator errors (units unknown) (unknown) (unknown) (no date) (unknown) (unknown) stressors. She has been dealing with stress from who filed for divorce, (units unknown) (unknown) (unknown) (no date) (unknown) (unknown) which has been challenging and stressful for her. She did initially have some (units unknown) (unknown) Result panel 123 (unknown) (no date) (unknown) (unknown) (no value) (units unknown) 45932-9 (unknown) (no date) (unknown) (unknown) (no value) (units unknown) (unknown) (unknown) (no date) (unknown) (unknown) Negative (units unknown) (unknown) (unknown) (no date) (unknown) (unknown) Negative (units unknown) 68311-7 (unknown) (no date) (unknown) (unknown) Negative (units unknown) 25942-4 (unknown) (no date) (unknown) (unknown) Negative (units unknown) 5196-1 (unknown) (no date) (unknown) (unknown) Non Reactive (units unknown) (unknown) (unknown) (no date) (unknown) (unknown) Non Reactive (units unknown) 78013-4 (unknown) (no date) (unknown) (unknown) Non Reactive (units unknown) 99239-6 Result panel 124 (unknown) (no date) (unknown) (unknown) NOT DETECTED (units unknown) (unknown) Result panel 125 (unknown) (no date) (unknown) (unknown) NEGATIVE (units unknown) (unknown) (unknown) (no date) (unknown) (unknown) NEGATIVE (units unknown) (unknown) Result panel 126 (unknown) (no date) (unknown) (unknown) Comment (units unknown) (unknown) (unknown) (no date) (unknown) (unknown) Comment (units unknown) (unknown) (unknown) (no date) (unknown) (unknown) Negative (units unknown) (unknown) (unknown) (no date) (unknown) (unknown) Non Reactive (units unknown) (unknown) Result panel 127 (unknown) (no date) (unknown) (unknown) Comment (units unknown) (unknown) (unknown) (no date) (unknown) (unknown) Comment (units unknown) (unknown) (unknown) (no date) (unknown) (unknown) Negative (units unknown) (unknown) (unknown) (no date) (unknown) (unknown) Non Reactive (units unknown) (unknown) (unknown) (no date) (unknown) (unknown) Non Reactive (units unknown) (unknown) Social History date description facility 2023-02-12 00:00 Never smoked tobacco (finding) [facility] 2023-03-15 00:00 Never smoked tobacco (finding) [facility] 2023-03-26 00:00 Never smoked tobacco (finding) [facility] 2023-04-13 00:00 Never smoked tobacco (finding) [facility] 2023-04-19 00:00 Never smoked tobacco (finding) [facility] Vital Signs date measurement value units 2023-02-12 00:00 BMI 45.5 kg/m2 2023-02-12 00:00 BP_diastolic 82 mmHg 2023-02-12 00:00 BP_systolic 144 mmHg 2023-02-12 00:00 heart_rate 95 /min 2023-02-12 00:00 height_metric 165.1 cm 2023-02-12 00:00 height_standard 65 in 2023-02-12 00:00 o2_saturation 98 % 2023-02-12 00:00 temperature_metric 36.44 C 2023-02-12 00:00 temperature_standard 97.6 F 2023-02-12 00:00 weight_metric 124 kg 2023-02-12 00:00 weight_standard 273.37 lb 2023-03-15 00:00 BMI 44.6 kg/m2 2023-03-15 00:00 BP_diastolic 74 mmHg 2023-03-15 00:00 BP_systolic 116 mmHg 2023-03-15 00:00 heart_rate 81 /min 2023-03-15 00:00 height_metric 165.1 cm 2023-03-15 00:00 height_standard 65 in 2023-03-15 00:00 o2_saturation 98 % 2023-03-15 00:00 weight_metric 121.56 kg 2023-03-15 00:00 weight_standard 267.99 lb 2023-03-26 00:00 BMI 42.4 kg/m2 2023-03-26 00:00 BP_diastolic 66 mmHg 2023-03-26 00:00 BP_systolic 123 mmHg 2023-03-26 00:00 heart_rate 70 /min 2023-03-26 00:00 height_metric 165.1 cm 2023-03-26 00:00 height_standard 65 in 2023-03-26 00:00 o2_saturation 98 % 2023-03-26 00:00 respiration_rate 14 /min 2023-03-26 00:00 temperature_metric 36.17 C 2023-03-26 00:00 temperature_standard 97.1 F 2023-03-26 00:00 weight_metric 115.66 kg 2023-03-26 00:00 weight_standard 254.99 lb 2023-04-13 00:00 BMI 41.2 kg/m2 2023-04-13 00:00 BP_diastolic 70 mmHg 2023-04-13 00:00 BP_systolic 126 mmHg 2023-04-13 00:00 heart_rate 80 /min 2023-04-13 00:00 height_metric 165.1 cm 2023-04-13 00:00 height_standard 65 in 2023-04-13 00:00 weight_metric 112.49 kg 2023-04-13 00:00 weight_standard 248 lb 2023-04-19 00:00 BMI 40.6 kg/m2 2023-04-19 00:00 BP_diastolic 72 mmHg 2023-04-19 00:00 BP_systolic 126 mmHg 2023-04-19 00:00 heart_rate 74 /min 2023-04-19 00:00 height_metric 165.1 cm 2023-04-19 00:00 height_standard 65 in 2023-04-19 00:00 o2_saturation 99 % 2023-04-19 00:00 weight_metric 110.67 kg 2023-04-19 00:00 weight_standard 243.99 lb
[2023-05-08] MEDS ORDERED: dexAMETHasone 4 MG TABLET PO STA (11:16)
[2023-05-08] MEDS ORDERED: HYDROmorphone 2 MG TABLET PO STA (11:16)
== END 2023-05-08 11:29 | disposition home or self-care (01) ==
LOC: ED 10:30
DX: M54.50 Low back pain, unspecified (principal)
CPT/HCPCS: 99282; 99283; A9270; J8540

== ENCOUNTER 2023-11-15 04:49 | Emergency (ER) | payer OTHER ==
--- NOTE | 2023-11-15 04:55 | ED Physician Documentation ---
History of Present Illness - Stated complaint Stated Complaint: EAR PX - History obtained from History obtained from: Patient - Additonal information Additional information: 38yF previously healthy p/w sinus congestion X few days and L ear pain X 1 day with pinkish discharge. denies fever. Review of Systems Constitutional: denies: Fever Ears: reports: Ear pain, Drainage/discharge Nose: reports: Rhinorrhea / runny nose, Congestion Respiratory: reports: Cough PD PAST MEDICAL HISTORY - Past Medical History Neuro: Other - Past Surgical History Past Surgical History: Yes /PILOT STEAM YACHT: section - Present Medications Home Medications: Ambulatory Orders Medication Instructions Recorded Confirmed Cyclobenzaprine [Flexeril] 10 mg PO TID PRN #15 tablet 01/20/23 Lidocaine Patch 5% [Lidoderm Patch] 1 patch TOP DAILY PRN #10 patch 01/20/23 predniSONE [Deltasone] 60 mg PO DAILY 4 Days #12 tablet 01/20/23 dexAMETHasone [Decadron] 4 mg PO DAILY #7 tablet 05/08/23 Amoxicillin 875 mg PO BID #20 tablet 11/15/23 - Allergies Allergies/Adverse Reactions: Allergies Allergy/AdvReac Type Severity Reaction Status Date / Time hydrocodone AdvReac Respiratory Verified 01/19/23 21:57 latex AdvReac Unknown Verified 11/15/23 04:58 oxycodone AdvReac Respiratory Verified 01/19/23 21:57 Sulfa (Sulfonamide AdvReac Unknown Verified 01/19/23 21:58 Antibiotics) - Social History Does the pt smoke?: No Smoking Status: Never smoker Does the pt drink ETOH?: Yes Does the pt have substance abuse?: No - POLST Patient has POLST: No PD ED PE NORMAL - Vitals Vital signs reviewed: Yes - General General: Alert and oriented X 3, No acute distress, Well developed/nourished - HEENT HEENT: Atraumatic, PERRL, EOMI, Moist mucous membranes, Pharynx benign, Other (L TM erythematous. R TM clear) - Neck Neck: Supple, no meningeal sign Results - Vitals Vitals: Vital Signs - 24 hr 11/15/23 04:51 Temperature 36.1 C L Heart Rate 87 Respiratory 20 Rate Blood Pressure 144/73 H O2 Saturation 98 Oxygen O2 Source Room air PD Medical Decision Making - ED course ED course: 38yF presents with L otitis media. antibiotics sent to pharmacy. return precautions given. plan to f/u with pcp. Departure - Departure Disposition: 01 Home, Self Care Clinical Impression: Otitis media Condition: Stable Instructions: ED Otitis Media Acute Adult Prescriptions: Amoxicillin 875 mg PO BID #20 tablet Comments: You were seen in the emergency department for ear infection. Electronic rx sent to [facility] in [place]. Please follow-up with your primary care provider and return to the emergency department if you have any new or worsening symptoms or other concerns. Forms: Activity restrictions
[2023-11-15 05:07] VITALS: BP 144/73; O2SAT 98
== END 2023-11-15 05:20 | disposition home or self-care (01) ==
LOC: ED 04:49
DX: H66.92 Otitis media, unspecified, left ear (principal); Z79.899 Other long term (current) drug therapy
CPT/HCPCS: 99282; 99283

== ENCOUNTER 2023-11-29 08:28 | Outpatient (CLI) | payer OTHER ==
[2023-11-29 08:40] LABS: HCG UR QUAL NEGATIVE
[2023-11-29 13:01] LABS: BACTERIAL VAGINOSIS DNA POSITIVE (NEGATIVE); CANDIDA GLABRATA DNA NEGATIVE (NEGATIVE); CANDIDA GROUP DNA POSITIVE (NEGATIVE); CANDIDA KRUSEI DNA NEGATIVE (NEGATIVE); TRICHOMONAS VAGINALIS DNA NEGATIVE (NEGATIVE)
== END 2023-11-29 08:29 | disposition home or self-care (01) ==
LOC: LAB 08:28
PROVIDERS: ATTEND Physician Assistant Medical
DX: N76.0 Acute vaginitis (principal)
CPT/HCPCS: 81025; 81514